=== PATIENT | male | born 1945 | race Caucasian/White ===

== ENCOUNTER 2017-09-03 09:30 | Inpatient (IN) | payer MEDICARE ==
[~2017-09-03] VITALS: Ht 180.3 cm; Wt 100.8 kg
[~2017-09-03 09:30] MED LIST: ASPIR 8181 MG PO; AZITHROMYCIN250 MG PO; CARVEDILOL3.125 MG PO; COMBIVENT RESPIM4 GM IH; DOXYCYCLINE HY100 MG PO; ENALAPRIL MALEA20 MG PO; IMODIUM2 MG PO; LASIX40 MG PO; LEVAQUIN500 MG PO; LOSARTAN POTASS25 MG PO; METOPROLOL TART25 MG PO; MUCUS RELIEF D1 EACH PEG; MUCUS RELIEF D1 EACH PO; OMEGA-31000 MG PO; OXYBUTYNIN CHLOR5 MG PO; PLAVIX75 MG PO; POTASSIUM CHLO10 ME1 PO; RAMIPRIL5 MG PO; SPIRONOLACTONE25 MG PO; TAMIFLU75 MG PO; VASOTEC10 M1 PO; VASOTEC10 MG PO; VASOTEC5 MG PO; ZOFRAN ODT4 MG PO
[2017-09-03 10:26] LABS: BASOPHILS # (AUTO) 0.1 (0.0-0.1); BASOPHILS % 0.7 % (0.0-1.0); EOSINOPHILS # (AUTO) 0.3 (0.0-0.4); EOSINOPHILS % 3.3 % (0.0-6.0); HEMOGLOBIN 15.4 g/dL (14.0-18.0); LYMPHOCYTES # (AUTO) 1.4 (1.0-3.2); LYMPHOCYTES % 16.3 % (18.0-39.1); MEAN CORPUSCULAR HEMOGLOBIN 27.8 pg (28-32); MEAN CORPUSCULAR HGB CONC 31.4 g/dL (31-35); MEAN CORPUSCULAR VOLUME 88.4 fL (81-99); MONOCYTES # (AUTO) 1.1 (0.2-0.8); NEUTROPHILS # (AUTO) 5.5 (2.1-6.9); NEUTROPHILS % 66.3 % (38.7-80.0); PLATELET COUNT 248 x10e3/uL (140-360); RED BLOOD COUNT 5.54 x10e6/uL (4.3-5.7); RED CELL DISTRIBUTION WIDTH 15.5 % (11.7-14.4)
[2017-09-03 10:29] LABS: INR 1.1; PARTIAL THROMBOPLASTIN TIME 28.9 seconds (23.8-35.5); PROTHROMBIN TIME 14.8 seconds (11.9-14.5)
[2017-09-03] MEDS ORDERED: FUROSEMIDE INJ 10 MG/ML 4 ML VIAL IV ONE (10:30)
--- NOTE | 2017-09-03 11:00 | Diagnostic Imaging Report ---
PROCEDURE:CHEST SINGLE (PORTABLE) TECHNIQUE:Portable AP chest INDICATION:Fluid on legs. COMPARISON:None. FINDINGS: Bilateral interstitial and alveolar opacity with cardiomegaly and postoperative sequela of sternotomy. Prominent central vasculature. No pleural effusions. Intact skeleton. CONCLUSION: Cardiomegaly with pulmonary edema consistent with volume overload. Dictated by: Man Mir M.D. on 09/03/2017 at 11:08 Electronically approved by: Man Mir M.D. on 09/03/2017 at 11:08
[2017-09-03] MEDS ORDERED: ULTRAM50 MG PO (11:03)
[2017-09-03] MEDS ORDERED: NORCO 5-325 TA1 EACH PO (11:03)
[2017-09-03 11:28] LABS: ALBUMIN 3.5 g/dL (3.5-5.0); ALBUMIN/GLOBULIN RATIO 1.1 (0.8-2.0); ANION GAP 14.8 mmol/L (8-16); CALCIUM 9.5 mg/dL (8.4-10.2); CREATININE, SERUM 1.29 mg/dL (0.72-1.25); POTASSIUM 3.8 mmol/L (3.5-5.1)
[2017-09-03 16:47] VITALS: BP 124/82
[2017-09-03 16:48] VITALS: BP 124/82
[2017-09-03 16:54] VITALS: BP 124/82
[2017-09-03] MEDS ORDERED: FUROSEMIDE INJ 10 MG/ML 4 ML VIAL IV SCH (17:00)
[2017-09-03] MEDS ORDERED: HYDROCODONE/APAP 5MG-325MG TAB PO PRN (17:45)
[2017-09-03 20:00] VITALS: BP 124/88
[2017-09-03 20:15] VITALS: BP 124/88
[2017-09-03] MEDS: RAMIPRIL 5 MG CAP PO SCH (21:53)
[2017-09-03] MEDS: FUROSEMIDE INJ 10 MG/ML 4 ML VIAL IV SCH (21:53)
[2017-09-03] MEDS: HYDROCODONE/APAP 5MG-325MG TAB PO PRN (23:55)
[2017-09-03] MEDS: CARVEDILOL 3.125 MG TAB PO SCH (23:59)
[2017-09-03] MEDS: METOPROLOL TARTRATE 25 MG TAB PO SCH (23:59)
[2017-09-04] VITALS (8 sets, daily range): BP systolic 96–162; BP diastolic 58–104
[2017-09-04] MEDS: TRAMADOL HCL 50 MG TAB PO PRN (06:01)
[2017-09-04 08:10] LABS: BASOPHILS # (AUTO) 0.1 (0.0-0.1); BASOPHILS % 0.9 % (0.0-1.0); EOSINOPHILS # (AUTO) 0.4 (0.0-0.4); EOSINOPHILS % 3.5 % (0.0-6.0); HEMOGLOBIN 15.2 g/dL (14.0-18.0); LYMPHOCYTES # (AUTO) 1.5 (1.0-3.2); LYMPHOCYTES % 14.8 % (18.0-39.1); MEAN CORPUSCULAR HEMOGLOBIN 28.1 pg (28-32); MEAN CORPUSCULAR HGB CONC 32.3 g/dL (31-35); MONOCYTES # (AUTO) 1.3 (0.2-0.8); MONOCYTES % 12.8 % (4.4-11.3); NEUTROPHILS # (AUTO) 6.9 (2.1-6.9); NEUTROPHILS % 67.7 % (38.7-80.0); PLATELET COUNT 244 x10e3/uL (140-360); RED CELL DISTRIBUTION WIDTH 15.7 % (11.7-14.4)
[2017-09-04 08:27] LABS: ALBUMIN 3.3 g/dL (3.5-5.0); ALBUMIN/GLOBULIN RATIO 1.1 (0.8-2.0); ANION GAP 13.2 mmol/L (8-16); CALCIUM 8.8 mg/dL (8.4-10.2); CREATININE, SERUM 1.37 mg/dL (0.72-1.25); POTASSIUM 4.2 mmol/L (3.5-5.1)
[2017-09-04] MEDS ORDERED: ENALAPRIL MALEATE 10 MG TAB PO SCH (09:00)
[2017-09-04] MEDS: LOSARTAN POTASSIUM 25 MG TAB PO SCH (09:00)
[2017-09-04] MEDS: SPIRONOLACTONE 25 MG TAB PO SCH (09:00)
[2017-09-04] MEDS ORDERED: SPIRONOLACTONE 25 MG TAB PO SCH (09:00)
[2017-09-04] MEDS ORDERED: LOSARTAN POTASSIUM 25 MG TAB PO SCH (09:00)
[2017-09-04] MEDS ORDERED: FUROSEMIDE 40 MG TAB PO SCH (09:00)
[2017-09-04] MEDS ORDERED: CARVEDILOL 3.125 MG TAB PO SCH (09:00)
[2017-09-04] MEDS ORDERED: METOPROLOL TARTRATE 25 MG TAB PO SCH (09:00)
[2017-09-04] MEDS: ENALAPRIL MALEATE 10 MG TAB PO SCH (09:00)
[2017-09-04] MEDS: ASPIRIN 81 MG CHEW TAB PO SCH (09:16)
[2017-09-04] MEDS: FUROSEMIDE INJ 10 MG/ML 4 ML VIAL IV SCH ×3 (09:16→22:00)
[2017-09-04] MEDS: CARVEDILOL 3.125 MG TAB PO SCH ×2 (09:16→17:06)
[2017-09-04] MEDS: OXYBUTYNIN CHLORIDE 5 MG TAB PO SCH ×2 (09:16→17:06)
--- NOTE | 2017-09-04 09:16 | Consultation ---
DATE OF CONSULTATION: September 03, 2017 CARDIOLOGY CONSULTATION REASON FOR CONSULTATION: CHF. CONSULTING PHYSICIAN: Dr. Vines HPI: This is a 72-year-old noncompliant male that presented with shortness of breath. According to him, for the last 3 months he started having worsening of shortness of breath, orthopnea, difficulty breathing, and bilateral lower extremity edema that he decided to come into the emergency room for evaluation. He was recently admitted and discharged home on August 06, 2017, with the same symptoms when he quit taking his diuretics because he was not feeling good. He recently had open heart surgery at [facility] in February 2017. He denies any chest pain, any palpitation, any dizziness, or diaphoresis. His chest x-ray showed cardiomegaly with pulmonary edema consistent with volume overload. BNP 2832. EKG showed normal sinus rhythm with nonspecific S/T abnormalities. PAST MEDICAL HISTORY: Hypertension, COPD, CHF, cardiomegaly, and CAD. PAST SURGICAL HISTORY: Open heart surgery, hernia repair, and nose surgery. FAMILY HISTORY: Positive for CAD. SOCIAL HISTORY: He quit smoking and lives at home with the . MEDICATIONS: See med list. ALLERGIES: HE IS ALLERGIC TO AZITHROMYCIN. REVIEW OF SYSTEMS: Negative except those mentioned above. PHYSICAL EXAMINATION VITAL SIGNS: Temperature 96.1, heart rate 63, blood pressure 110/85, respirations 18, oxygen saturation 95% on room air. GENERAL: He is awake, alert and oriented times 3. HEENT: Mucous membrane moist. NECK: Supple. LUNGS: Bilateral with decreased breath sounds. CARDIOVASCULAR: S1 and S2 present. ABDOMEN: Soft. NEUROLOGICAL: Intact. EXTREMITIES: With positive edema. LABS: Sodium 143, potassium 3.8, chloride 106, CO2 26, BUN 11, creatinine 1.29, glucose 120. White blood cells 10.1, hemoglobin 15.2, hematocrit 47, and platelets 244,000. PT 14.8, PTT 28.9 and INR 1.1. IMPRESSION 1. Systolic congestive heart failure exacerbation. 2. Coronary artery disease with coronary artery bypass graft. 3. Hypertension. 4. Renal insufficiency. 5. Chronic obstructive pulmonary disease. ASSESSMENT AND PLAN: He had an echo done in July with left ventricular systolic dysfunction that was severely impaired. Ejection fraction was 20% to 25%. Will put him on 1.5. L fluid restriction, low salt diet, daily weights. Continue diuretics, beta basilio and ALFREDA. Further cardiac workup pending clinical course. Thank you for this consultation. DICTATED BY LOREN ESCALONA NP Job#: [id number] RI
[2017-09-04] MEDS: POTASSIUM CHLORIDE 10 MEQ TABCR PO SCH (09:17)
[2017-09-04] MEDS: CLOPIDOGREL BISULFATE 75 MG TAB PO SCH (09:17)
[2017-09-04] MEDS: METOPROLOL TARTRATE 25 MG TAB PO SCH ×2 (09:17→17:06)
[2017-09-04] MEDS: OMEGA 3 POLYUNSAT FATTY ACIDS 1000 MG SOFTGEL PO SCH ×2 (09:17→17:06)
[2017-09-04] MEDS: CEFAZOLIN SOD 1 GM in WATER STERILE 10ML VIAL 10 ML IV SCH ×2 (12:50→21:19)
[2017-09-04] MEDS: HYDROCODONE/APAP 5MG-325MG TAB PO PRN (15:04)
[2017-09-04] MEDS: RAMIPRIL 5 MG CAP PO SCH (21:00)
[2017-09-05] VITALS (7 sets, daily range): BP systolic 93–125; BP diastolic 62–86
[2017-09-05] MEDS: FUROSEMIDE INJ 10 MG/ML 4 ML VIAL IV SCH ×3 (05:27→21:21)
[2017-09-05] MEDS: CEFAZOLIN SOD 1 GM in WATER STERILE 10ML VIAL 10 ML IV SCH ×3 (05:27→21:37)
--- NOTE | 2017-09-05 06:35 | Diagnostic Imaging Report ---
CHEST 2 VIEWS, Technique: CHEST 2 VIEWS Comparison: 07/12/2017 Clinical history: Follow-up CHF DISCUSSION: Heart/mediastinum: Stable enlarged status post sternotomy. Lungs: Central vascular congestion without overt edema. Pleural spaces: Stable blunting of the costophrenic angles, likely trace effusions. IMPRESSION: Cardiomegaly with central vascular congestion and trace effusions. Signed by: Dr Carolina Starks MD on 09/05/2017 6:32 AM
[2017-09-05] MEDS: SPIRONOLACTONE 25 MG TAB PO SCH (08:46)
[2017-09-05] MEDS: OXYBUTYNIN CHLORIDE 5 MG TAB PO SCH ×2 (08:46→17:04)
[2017-09-05] MEDS: ASPIRIN 81 MG CHEW TAB PO SCH (08:46)
[2017-09-05] MEDS: OMEGA 3 POLYUNSAT FATTY ACIDS 1000 MG SOFTGEL PO SCH ×2 (08:47→17:04)
[2017-09-05] MEDS: HYDROCODONE/APAP 5MG-325MG TAB PO PRN (08:47)
[2017-09-05] MEDS: CLOPIDOGREL BISULFATE 75 MG TAB PO SCH (08:47)
[2017-09-05] MEDS: LOSARTAN POTASSIUM 25 MG TAB PO SCH (09:05)
[2017-09-05] MEDS: CARVEDILOL 3.125 MG TAB PO SCH ×2 (09:05→17:04)
[2017-09-05] MEDS: ENALAPRIL MALEATE 10 MG TAB PO SCH (09:06)
[2017-09-05] MEDS: METOPROLOL TARTRATE 25 MG TAB PO SCH ×2 (09:06→17:04)
[2017-09-05] MEDS: POTASSIUM CHLORIDE 10 MEQ TABCR PO SCH (09:06)
[2017-09-05 09:11] LABS: ANION GAP 12.6 mmol/L (8-16); CALCIUM 9.3 mg/dL (8.4-10.2); CREATININE, SERUM 1.19 mg/dL (0.72-1.25); POTASSIUM 3.6 mmol/L (3.5-5.1)
[2017-09-05 09:22] LABS: BILIRUBIN,URINE NEGATIVE (NEGATIVE); CLARITY,URINE CLEAR (CLEAR); COLOR,URINE YELLOW (YELLOW); KETONES,URINE NEGATIVE (NEGATIVE); LEUKOCYTE ESTERASE ,URINE 2+ (NEGATIVE); NITRITE,URINE NEGATIVE (NEGATIVE); PROTEIN,URINE DIPSTICK NEGATIVE (NEGATIVE); URINE UROBILINOGEN 0.2 mg/dL (0.2 - 1)
[2017-09-05 09:40] LABS: RBC,URINE 21-50 /HPF (0-5); WBC,URINE (MAN) 0-5 /HPF (0-5)
--- NOTE | 2017-09-05 09:55 | History and Physical ---
PCP: Dr. Adán Amador ROUTE SALES MANAGER: Dr. Dmitry Silverman CHIEF COMPLAINT: Acute exacerbation of systolic dysfunction congestive heart failure and lower extremity edema associated with infection of the left and right leg. HISTORY: This is a 72-year-old male with cardiomyopathy with ejection fraction of approximately 20% to 25% on recent echocardiogram with systolic dysfunction congestive heart failure came in with exacerbation. More importantly, it was noticed now that the patient has bilateral lower extremity cellulitis of the leg worse on the left compared to the right. He has significant lower extremity edema. The patient is having fluid seeping out of those wounds. The patient is otherwise stable. He does not seem to understand his condition. The patient seems to be confused. PAST MEDICAL HISTORY: Possible early to moderate dementia, hypertension, history COPD, systolic dysfunction chest heart failure, cardiomyopathy with EF of 20%, coronary disease with previous bypass surgery. PAST SURGICAL HISTORY: CABG, inguinal hernia repair. Nose surgery. SOCIAL HISTORY: The patient lives with his . He does not smoke or use alcohol. ALLERGIES: AZITHROMYCIN. HOME MEDICATIONS: List will be available for review. REVIEW OF SYSTEMS: Difficult to assess, but the patient seemed to be comfortable. Lower extremities bilaterally with edema. Left lower extremity redness above the ankle area. Shortness of breath and coughing. PHYSICAL EXAMINATION VITAL SIGNS: Temperature is 98, blood pressure 149/98, pulse rate 82, respirations 18. GENERAL: The patient is not in acute distress. He is awake. HEENT: Normocephalic, atraumatic and anicteric. NECK: Supple grossly. PULMONARY: Bilateral wheezing and rales at the base. CARDIOVASCULAR: S1 and S2. Regular rate and rhythm. ABDOMEN: Soft. EXTREMITIES: Three plus edema with cellulitis above the ankle area on both lower extremities, worse on the left compared to the right. NEUROLOGIC: He is moving all extremities. Possible dementia. LABORATORY: Reviewed. Sodium is 141, potassium 4.2, chloride 102, bicarb 30, BUN 13, creatinine 1.4, glucose 119. WBC is 10, hemoglobin 15.2, hematocrit 47, and platelets 244,000. IMPRESSION 1. Sakrc-vs-obevtrw systolic dysfunction congestive heart failure exacerbation. 2. Bilateral lower extremity cellulitis with edematous legs. 3. Compliance issue. 4. Dementia. 5. Multiple baseline problems. PLAN: Suarez catheter has already been placed. IV Lasix. Antibiotics. Monitor the patient closely. This patient will need more assistance at home, possible home health, but most likely will be better with palliative Hospice care since his EF is approximately 20%, and he will get more attention, medications, monitoring, as well as other assistance that home health will not be able to provide. Job#: [id number] RI
[2017-09-05] MEDS: TRAMADOL HCL 50 MG TAB PO PRN (10:52)
[2017-09-05] MEDS ORDERED: DOCUSATE SODIUM 100 MG CAP PO PRN (11:15)
[2017-09-05] MEDS ORDERED: LACTULOSE SYRUP 20 GM/30 ML UDC PO PRN (11:15)
[2017-09-05] MEDS: SENNOSIDES 8.6 MG TAB PO SCH (17:04)
[2017-09-05] MEDS: RAMIPRIL 5 MG CAP PO SCH (21:00)
[2017-09-06] VITALS (10 sets, daily range): BP systolic 96–128; BP diastolic 58–80
[2017-09-06] MEDS: CEFAZOLIN SOD 1 GM in WATER STERILE 10ML VIAL 10 ML IV SCH ×3 (05:44→22:34)
[2017-09-06] MEDS: FUROSEMIDE INJ 10 MG/ML 4 ML VIAL IV SCH ×3 (05:44→22:34)
[2017-09-06] MEDS: OMEGA 3 POLYUNSAT FATTY ACIDS 1000 MG SOFTGEL PO SCH ×2 (09:15→17:52)
[2017-09-06] MEDS: ASPIRIN 81 MG CHEW TAB PO SCH (10:15)
[2017-09-06] MEDS: LOSARTAN POTASSIUM 25 MG TAB PO SCH (10:15)
[2017-09-06] MEDS: OXYBUTYNIN CHLORIDE 5 MG TAB PO SCH ×2 (10:15→17:51)
[2017-09-06] MEDS: ENALAPRIL MALEATE 10 MG TAB PO SCH (10:15)
[2017-09-06] MEDS: SENNOSIDES 8.6 MG TAB PO SCH ×2 (10:15→17:52)
[2017-09-06] MEDS: CLOPIDOGREL BISULFATE 75 MG TAB PO SCH (10:15)
[2017-09-06] MEDS: METOPROLOL TARTRATE 25 MG TAB PO SCH ×2 (10:15→17:53)
[2017-09-06] MEDS: SPIRONOLACTONE 25 MG TAB PO SCH (10:15)
[2017-09-06] MEDS: CARVEDILOL 3.125 MG TAB PO SCH ×2 (10:15→17:52)
[2017-09-06] MEDS: POTASSIUM CHLORIDE 10 MEQ TABCR PO SCH (10:15)
[2017-09-07] VITALS: BP 116/72
[2017-09-07] MEDS: HYDROCODONE/APAP 5MG-325MG TAB PO PRN (02:29)
[2017-09-07] MEDS: CEFAZOLIN SOD 1 GM in WATER STERILE 10ML VIAL 10 ML IV SCH ×3 (06:11→21:00)
[2017-09-07] MEDS: FUROSEMIDE INJ 10 MG/ML 4 ML VIAL IV SCH ×3 (06:12→22:00)
[2017-09-07 06:43] LABS: BASOPHILS # (AUTO) 0.1 (0.0-0.1); BASOPHILS % 0.8 % (0.0-1.0); EOSINOPHILS % 10.1 % (0.0-6.0); HEMATOCRIT 42.3 % (38.2-49.6); HEMOGLOBIN 13.6 g/dL (14.0-18.0); LYMPHOCYTES # (AUTO) 1.6 (1.0-3.2); LYMPHOCYTES % 16.3 % (18.0-39.1); MEAN CORPUSCULAR HEMOGLOBIN 27.6 pg (28-32); MEAN CORPUSCULAR HGB CONC 32.2 g/dL (31-35); MEAN CORPUSCULAR VOLUME 85.8 fL (81-99); MONOCYTES # (AUTO) 1.3 (0.2-0.8); MONOCYTES % 12.7 % (4.4-11.3); NEUTROPHILS % 59.7 % (38.7-80.0); PLATELET COUNT 270 x10e3/uL (140-360); RED BLOOD COUNT 4.93 x10e6/uL (4.3-5.7); RED CELL DISTRIBUTION WIDTH 15.4 % (11.7-14.4)
[2017-09-07 07:17] LABS: ANION GAP 13.7 mmol/L (8-16); CREATININE, SERUM 1.32 mg/dL (0.72-1.25); POTASSIUM 3.7 mmol/L (3.5-5.1)
[2017-09-07 08:45] VITALS: BP 116/73
[2017-09-07] MEDS: OXYBUTYNIN CHLORIDE 5 MG TAB PO SCH ×2 (09:18→16:59)
[2017-09-07] MEDS: OMEGA 3 POLYUNSAT FATTY ACIDS 1000 MG SOFTGEL PO SCH ×2 (09:18→16:59)
[2017-09-07] MEDS: CLOPIDOGREL BISULFATE 75 MG TAB PO SCH (09:18)
[2017-09-07] MEDS: SENNOSIDES 8.6 MG TAB PO SCH ×2 (09:18→16:59)
[2017-09-07] MEDS: SPIRONOLACTONE 25 MG TAB PO SCH (09:18)
[2017-09-07] MEDS: ASPIRIN 81 MG CHEW TAB PO SCH (09:18)
[2017-09-07] MEDS: CARVEDILOL 3.125 MG TAB PO SCH ×2 (09:19→16:59)
[2017-09-07] MEDS: LOSARTAN POTASSIUM 25 MG TAB PO SCH (09:19)
[2017-09-07] MEDS: ENALAPRIL MALEATE 10 MG TAB PO SCH (09:19)
[2017-09-07] MEDS: METOPROLOL TARTRATE 25 MG TAB PO SCH ×2 (09:19→16:59)
[2017-09-07] MEDS: POTASSIUM CHLORIDE 10 MEQ TABCR PO SCH (09:19)
[2017-09-07 11:02] VITALS: BP 116/75
[2017-09-07 16:10] VITALS: BP 120/69
[2017-09-07 20:00] VITALS: BP 100/67
[2017-09-07] MEDS: RAMIPRIL 1.25 MG PO SCH (21:00)
[2017-09-07] MEDS ORDERED: CEFAZOLIN SOD 1 GM VIAL ONE (21:38)
[2017-09-08] VITALS: BP 124/87
[2017-09-08 04:00] VITALS: BP 137/96
[2017-09-08] MEDS: CEFAZOLIN SOD 1 GM in WATER STERILE 10ML VIAL 10 ML IV SCH ×3 (05:00→20:39)
[2017-09-08] MEDS ORDERED: CEFAZOLIN SOD 1 GM VIAL ONE ×3 (05:31→20:11)
[2017-09-08] MEDS: FUROSEMIDE INJ 10 MG/ML 4 ML VIAL IV SCH ×3 (05:40→22:16)
[2017-09-08] MEDS: POTASSIUM CHLORIDE 10 MEQ TABCR PO SCH (09:37)
[2017-09-08] MEDS: LOSARTAN POTASSIUM 25 MG TAB PO SCH (09:37)
[2017-09-08] MEDS: ASPIRIN 81 MG CHEW TAB PO SCH (09:37)
[2017-09-08] MEDS: CARVEDILOL 3.125 MG TAB PO SCH ×2 (09:37→16:30)
[2017-09-08] MEDS: OMEGA 3 POLYUNSAT FATTY ACIDS 1000 MG SOFTGEL PO SCH ×2 (09:37→16:31)
[2017-09-08] MEDS: OXYBUTYNIN CHLORIDE 5 MG TAB PO SCH ×2 (09:37→16:30)
[2017-09-08] MEDS: SPIRONOLACTONE 25 MG TAB PO SCH (09:37)
[2017-09-08] MEDS: CLOPIDOGREL BISULFATE 75 MG TAB PO SCH (09:37)
[2017-09-08] MEDS: METOPROLOL TARTRATE 25 MG TAB PO SCH ×2 (09:37→16:31)
[2017-09-08] MEDS: SENNOSIDES 8.6 MG TAB PO SCH ×2 (09:37→16:31)
[2017-09-08] MEDS: ENALAPRIL MALEATE 10 MG TAB PO SCH (09:38)
[2017-09-08 12:17] VITALS: BP 118/77
[2017-09-08 16:22] VITALS: BP 117/70
[2017-09-08 20:08] VITALS: BP 116/69
[2017-09-08] MEDS: RAMIPRIL 1.25 MG PO SCH (20:41)
[2017-09-09] VITALS (7 sets, daily range): BP systolic 99–142; BP diastolic 68–92
[2017-09-09] MEDS ORDERED: CEFAZOLIN SOD 1 GM VIAL ONE (05:44)
[2017-09-09] MEDS: CEFAZOLIN SOD 1 GM in WATER STERILE 10ML VIAL 10 ML IV SCH (05:48)
[2017-09-09] MEDS: FUROSEMIDE INJ 10 MG/ML 4 ML VIAL IV SCH ×2 (05:50→07:22)
[2017-09-09] MEDS: CARVEDILOL 3.125 MG TAB PO SCH ×2 (09:00→17:00)
[2017-09-09] MEDS: ASPIRIN 81 MG CHEW TAB PO SCH (09:55)
[2017-09-09] MEDS: POTASSIUM CHLORIDE 10 MEQ TABCR PO SCH (09:55)
[2017-09-09] MEDS: FUROSEMIDE 40 MG TAB PO SCH ×2 (09:55→13:00)
[2017-09-09] MEDS: SENNOSIDES 8.6 MG TAB PO SCH ×2 (09:55→17:00)
[2017-09-09] MEDS: ENALAPRIL MALEATE 10 MG TAB PO SCH (09:56)
[2017-09-09] MEDS: SPIRONOLACTONE 25 MG TAB PO SCH (09:56)
[2017-09-09] MEDS: METOPROLOL TARTRATE 25 MG TAB PO SCH (09:56)
[2017-09-09] MEDS: OMEGA 3 POLYUNSAT FATTY ACIDS 1000 MG SOFTGEL PO SCH ×2 (09:56→17:39)
[2017-09-09] MEDS: LOSARTAN POTASSIUM 25 MG TAB PO SCH (09:57)
[2017-09-09] MEDS: CLOPIDOGREL BISULFATE 75 MG TAB PO SCH (09:57)
[2017-09-09 10:35] LABS: BASOPHILS # (AUTO) 0.1 (0.0-0.1); BASOPHILS % 0.7 % (0.0-1.0); EOSINOPHILS # (AUTO) 0.8 (0.0-0.4); EOSINOPHILS % 9.1 % (0.0-6.0); HEMATOCRIT 44.7 % (38.2-49.6); HEMOGLOBIN 14.3 g/dL (14.0-18.0); LYMPHOCYTES # (AUTO) 1.1 (1.0-3.2); LYMPHOCYTES % 12.7 % (18.0-39.1); MEAN CORPUSCULAR HEMOGLOBIN 27.6 pg (28-32); MEAN CORPUSCULAR VOLUME 86.3 fL (81-99); MONOCYTES # (AUTO) 0.9 (0.2-0.8); MONOCYTES % 9.8 % (4.4-11.3); NEUTROPHILS # (AUTO) 6.1 (2.1-6.9); NEUTROPHILS % 67.4 % (38.7-80.0); PLATELET COUNT 260 x10e3/uL (140-360); RED BLOOD COUNT 5.18 x10e6/uL (4.3-5.7); RED CELL DISTRIBUTION WIDTH 15.4 % (11.7-14.4)
[2017-09-09 11:04] LABS: ANION GAP 15.8 mmol/L (8-16); CALCIUM 9.1 mg/dL (8.4-10.2); CREATININE, SERUM 1.21 mg/dL (0.72-1.25); POTASSIUM 3.8 mmol/L (3.5-5.1)
[2017-09-09] MEDS: RAMIPRIL 1.25 MG PO SCH (21:00)
[2017-09-10] VITALS (7 sets, daily range): BP systolic 108–153; BP diastolic 62–83
[2017-09-10] MEDS: HYDROCODONE/APAP 5MG-325MG TAB PO PRN (00:03)
[2017-09-10 07:50] LABS: BASOPHILS # (AUTO) 0.1 (0.0-0.1); BASOPHILS % 0.7 % (0.0-1.0); EOSINOPHILS # (AUTO) 1.1 (0.0-0.4); EOSINOPHILS % 12.1 % (0.0-6.0); HEMATOCRIT 44.5 % (38.2-49.6); HEMOGLOBIN 14.5 g/dL (14.0-18.0); LYMPHOCYTES # (AUTO) 1.5 (1.0-3.2); LYMPHOCYTES % 16.1 % (18.0-39.1); MEAN CORPUSCULAR HGB CONC 32.6 g/dL (31-35); MEAN CORPUSCULAR VOLUME 86.1 fL (81-99); MONOCYTES # (AUTO) 1.3 (0.2-0.8); MONOCYTES % 14.1 % (4.4-11.3); NEUTROPHILS # (AUTO) 5.3 (2.1-6.9); NEUTROPHILS % 56.7 % (38.7-80.0); PLATELET COUNT 278 x10e3/uL (140-360); RED BLOOD COUNT 5.17 x10e6/uL (4.3-5.7); RED CELL DISTRIBUTION WIDTH 15.5 % (11.7-14.4)
[2017-09-10] MEDS: FUROSEMIDE 40 MG TAB PO SCH ×2 (08:00→12:00)
[2017-09-10 08:05] LABS: ANION GAP 12.9 mmol/L (8-16); BLOOD UREA NITROGEN 21 mg/dL (7-26); BUN/CREATININE RATIO 21 (6-25); CALCIUM 9.3 mg/dL (8.4-10.2); CARBON DIOXIDE 28 mmol/L (22-29); CHLORIDE 103 mmol/L (98-107); CREATININE, SERUM 1.02 mg/dL (0.72-1.25); EST GLOMERULAR FILTRATION RATE > 60 ML/MIN (60-); GLUCOSE 101 mg/dL (74-118); POTASSIUM 3.9 mmol/L (3.5-5.1); SODIUM 140 mmol/L (136-145)
[2017-09-10] MEDS: ASPIRIN 81 MG CHEW TAB PO SCH (09:23)
[2017-09-10] MEDS: SPIRONOLACTONE 25 MG TAB PO SCH (09:23)
[2017-09-10] MEDS: ENALAPRIL MALEATE 10 MG TAB PO SCH (09:24)
[2017-09-10] MEDS: CARVEDILOL 3.125 MG TAB PO SCH ×2 (09:24→17:43)
[2017-09-10] MEDS: SENNOSIDES 8.6 MG TAB PO SCH ×2 (09:24→17:43)
[2017-09-10] MEDS: LOSARTAN POTASSIUM 25 MG TAB PO SCH (09:24)
[2017-09-10] MEDS: POTASSIUM CHLORIDE 10 MEQ TABCR PO SCH (09:24)
[2017-09-10] MEDS: CLOPIDOGREL BISULFATE 75 MG TAB PO SCH (09:24)
[2017-09-10] MEDS: OMEGA 3 POLYUNSAT FATTY ACIDS 1000 MG SOFTGEL PO SCH ×2 (09:24→17:43)
[2017-09-10] MEDS: TRAMADOL HCL 50 MG TAB PO PRN (18:15)
[2017-09-10] MEDS: RAMIPRIL 1.25 MG PO SCH (21:00)
[2017-09-11] VITALS: BP 104/56
[2017-09-11 04:00] VITALS: BP 108/62
[2017-09-11 08:00] VITALS: BP 120/75
[2017-09-11 08:12] LABS: BASOPHILS # (AUTO) 0.1 (0.0-0.1); BASOPHILS % 0.9 % (0.0-1.0); EOSINOPHILS # (AUTO) 1.2 (0.0-0.4); EOSINOPHILS % 11.5 % (0.0-6.0); HEMATOCRIT 46.1 % (38.2-49.6); HEMOGLOBIN 14.5 g/dL (14.0-18.0); LYMPHOCYTES # (AUTO) 1.6 (1.0-3.2); MEAN CORPUSCULAR HEMOGLOBIN 27.4 pg (28-32); MEAN CORPUSCULAR HGB CONC 31.5 g/dL (31-35); MEAN CORPUSCULAR VOLUME 87.1 fL (81-99); MONOCYTES # (AUTO) 1.6 (0.2-0.8); MONOCYTES % 14.7 % (4.4-11.3); NEUTROPHILS # (AUTO) 6.1 (2.1-6.9); NEUTROPHILS % 57.5 % (38.7-80.0); PLATELET COUNT 290 x10e3/uL (140-360); RED BLOOD COUNT 5.29 x10e6/uL (4.3-5.7); RED CELL DISTRIBUTION WIDTH 15.5 % (11.7-14.4)
[2017-09-11 08:37] LABS: ANION GAP 14.6 mmol/L (8-16); BLOOD UREA NITROGEN 18 mg/dL (7-26); BUN/CREATININE RATIO 19 (6-25); CALCIUM 9.5 mg/dL (8.4-10.2); CARBON DIOXIDE 28 mmol/L (22-29); CHLORIDE 103 mmol/L (98-107); CREATININE, SERUM 0.95 mg/dL (0.72-1.25); EST GLOMERULAR FILTRATION RATE > 60 ML/MIN (60-); GLUCOSE 101 mg/dL (74-118); POTASSIUM 4.6 mmol/L (3.5-5.1); SODIUM 141 mmol/L (136-145)
[2017-09-11] MEDS: SPIRONOLACTONE 25 MG TAB PO SCH (09:42)
[2017-09-11] MEDS: ASPIRIN 81 MG CHEW TAB PO SCH (09:42)
[2017-09-11] MEDS: FUROSEMIDE 40 MG TAB PO SCH ×2 (09:42→12:54)
[2017-09-11] MEDS: OMEGA 3 POLYUNSAT FATTY ACIDS 1000 MG SOFTGEL PO SCH (09:43)
[2017-09-11] MEDS: ENALAPRIL MALEATE 10 MG TAB PO SCH (09:43)
[2017-09-11] MEDS: POTASSIUM CHLORIDE 10 MEQ TABCR PO SCH (09:43)
[2017-09-11] MEDS: LOSARTAN POTASSIUM 25 MG TAB PO SCH (09:43)
[2017-09-11] MEDS: SENNOSIDES 8.6 MG TAB PO SCH (09:43)
[2017-09-11] MEDS: CARVEDILOL 3.125 MG TAB PO SCH (09:43)
[2017-09-11] MEDS: CLOPIDOGREL BISULFATE 75 MG TAB PO SCH (09:43)
[2017-09-11 11:31] LABS: BAND NEUTROPHILS % (MANUAL) 1 %; EOSINOPHILS % (MANUAL) 10 % (0-7); LYMPHOCYTES % (MANUAL) 7 % (19-48); MONOCYTES % (MANUAL) 12 % (3.4-9.0); NEUTROPHILS % (MANUAL) 70 % (40-74)
[2017-09-11 11:32] LABS: PLATELET ESTIMATE ADEQUATE; PLATELET MORPHOLOGY COMMENT NORMAL; RBC MORPHOLOGY COMMENT NORMAL
[2017-09-11 12:00] VITALS: BP 117/78
[2017-09-11] MEDS ORDERED: SENOKOT8.6 MG PO (13:51)
[2017-09-11] MEDS ORDERED: LACTULOSE20 GM/30 M PO (13:51)
[2017-09-11] MEDS ORDERED: COLACE100 M1 PO (13:51)
--- NOTE | 2017-09-12 10:11 | Discharge Summary ---
PRINCIPAL DIAGNOSES 1. Acute exacerbation of systolic congestive heart failure. 2. Severe systolic congestive heart failure with ejection fraction 20%. The patient refuses AICD placement with the understanding that he could develop sudden . 3. Bilateral leg cellulitis. 4. Coronary artery disease. 5. Valvular dysfunction. 6. Constipation. 7. Acute kidney injury, which is resolving. SECONDARY DIAGNOSIS: Systolic congestive heart failure. CHIEF COMPLAINT: Leg swelling. HISTORY OF PRESENT ILLNESS: with leg swelling, . For further details, please refer to H\T\P. HOSPITAL COURSE: The patient was found to have acute exacerbation of systolic CHF. He was diuresed. He had acute kidney injury which resolved. He had bilateral leg cellulitis and was treated. Coronary artery disease treated with medication regimen. He has a history of coronary artery bypass grafting. For ambulatory dysfunction received physical therapy and will receive physical therapy at home. The patient was considered for hospice care but they refused and also considered for alf facility but they refused. Therefore, he will go home with home health. No AICD. The patient refused the AICD, even with the understanding that he could develop sudden and not make it to the hospital due to cardiac arrhythmia. The patient is currently appropriate for discharge. DISCHARGE MEDICATIONS: Per electronic medical records. FOLLOWUP CARE: Follow up with primary care physician in one week and inspector agricultural commodities in two weeks. PROGNOSIS: Poor. VALENTINE CARABALLO MD Job#: [id number]
== END 2017-09-11 15:39 | disposition home or self-care (01) | DRG 292 ==
LOC: ER 09:36 → ERHOLD 12:21 → ER 15:27 → MED/SURG 15:28 → MED/SURG3 09-07 13:11
PROVIDERS: ADMIT Internal Medicine; ATTEND Internal Medicine
DX: I11.0 Hypertensive heart disease with heart failure (principal); L03.116 Cellulitis of left lower limb; N17.9 Acute kidney failure, unspecified; L03.115 Cellulitis of right lower limb; F03.90 Unspecified dementia, unspecified severity, without behavioral disturbance, psychotic disturbance, mood disturbance, and anxiety; J44.9 Chronic obstructive pulmonary disease, unspecified; I50.23 Acute on chronic systolic (congestive) heart failure; I25.10 Atherosclerotic heart disease of native coronary artery without angina pectoris; Z95.1 Presence of aortocoronary bypass graft; K59.00 Constipation, unspecified; Z87.891 Personal history of nicotine dependence; Z91.19 Patient's noncompliance with other medical treatment and regimen; Z79.82 Long term (current) use of aspirin; Z79.02 Long term (current) use of antithrombotics/antiplatelets
CPT/HCPCS: 36415; 71010; 71020; 80048; 80053; 81001; 82948; 83880; 85025; 85610; 85730; 87086; 93005; 97139; J0690; J1940

== ENCOUNTER 2017-10-09 08:14 | Emergency (ER) | payer MEDICARE ==
[~2017-10-09] VITALS: Ht 180.3 cm; Wt 80.3 kg
[~2017-10-09 08:14] MED LIST changes: +COLACE100 M1 PO; +LACTULOSE20 GM/30 M PO; +NORCO 5-325 TA1 EACH PO; +SENOKOT8.6 MG PO; +ULTRAM50 MG PO
--- OUTSIDE RECORDS SUMMARY | 2017-10-09 08:16 | XMS REPORT ---
Author Author [facility] Address Unknown Phone Unavailable Care Team Providers Care Cow Rider Name Role Phone RASHMI MEDRANO Unavailable Unavailable SABRINA KERR Unavailable Unavailable Problems This patient has no known problems. Allergies, Adverse Reactions, Alerts This patient has no known allergies or adverse reactions. Medications This patient has no known medications. Results Test Description Test Time Test Comments Text Results Atomic Results Result Comments CHEST 2 VIEWS [place] [address] Patient Name: DELMIS CORREA MR #: [id number] : 1945 Age/Sex: 72/M Req # : [id number] [facility] Physician: RASHMI MEDRANO MD Ordered by: RASHMI MEDRANO MD Report #: [id number] Location: MED/SURG Room/Bed: [facility] _ Procedure: [id number] DX/CHEST 2 VIEWS Exam Date: 09/05/17 Exam Time: 0520 REPORT STATUS: Signed CHEST 2 VIEWS, Technique: CHEST 2 VIEWS Comparison: 07/12/2017 Clinical history: Follow -up CHF DISCUSSION: Heart/mediastinum: Stable enlarged status post sternotomy. Lungs: Central vascular congestion without overt edema. Pleural spaces: Stable blunting of the costophrenic angles, likely trace effusions. IMPRESSION: Cardiomegaly with central vascular congestion and trace effusions. Signed by: Dr Yanet Starks MD on 09/05/2017 6:32 AM Dictated By: YANET STARKS MD 1 Transcribed By: EN on 09/05/17631 COPY TO: RASHMI MEDRANO MD CHEST SINGLE (PORTABLE) [place] [id number] [place] [address] Patient Name: DELMIS CORREA MR #: [id number] : 1945 Age/Sex: 72/M Req #: [id number] Adm Physician: Ordered by: CHAPO LARSEN MD Report #: [id number] Location: ER Room/Bed: Procedure: [id number] DX/CHEST SINGLE (PORTABLE) Exam Date: 09/03/17 Exam Time: 1040 REPORT STATUS: Signed PROCEDURE: CHEST SINGLE (PORTABLE) TECHNIQUE: Portable AP chest INDICATION: Fluid on legs. COMPARISON: None. FINDINGS: Bilateral interstitial and alveolar opacity with cardiomegaly and postoperative sequela of sternotomy. Prominent central vasculature. No pleural effusions. Intact skeleton. CONCLUSION: Cardiomegaly with pulmonary edema consistent with volume overload. Dictated by: Luis Mir M.D. on 09/03/2017 at 11:08 Electronically approved by: Luis Mir M.D. on 2016 at 11:08 Dictated By: LUIS MIR MD 07 Transcribed By: ADRIANA on 1107 COPY TO: CHAPO LARSEN MD CHEST SINGLE (PORTABLE) [place] [address] Patient Name: DELMIS CORREA MR #: [id number] : 1945 Age/Sex: 72/M Req #: [id number] [facility] Physician: Ordered by: SABRINA KERR MD Report #: [id number] Location: ER Room/Bed: Procedure: [id number] DX/CHEST SINGLE (PORTABLE) Exam Date: 07/12/17 Exam Time: 1999 REPORT STATUS: Signed EXAMINATION: CHEST SINGLE (PORTABLE) 07/12/2017 6:37 PM COMPARISON: 11/02/2016 INDICATION: Chest pain DISCUSSION: LINES: None. LUNGS: Nonspecific left basilar opacity. PLEURA: No pleural effusion or pneumothorax. HEART AND MEDIASTINUM: Cardiomegaly, unchanged BONES AND SOFT TISSUES: No acute osseous lesion. Median sternotomy wires are intact. IMPRESSION: Cardiomegaly. Nonspecific left basilar opacities may represent atelectasis or edema. Sara Terry MD Signed by: Dr. Sara Terry M.D. on 07/12/2017 8:52 PM Dictated By: SARA TERRY MD 51 Transcribed By: EN on 07/12/172051 COPY TO: SABRINA KERR MD
[2017-10-09 09:31] LABS: BASOPHILS % 0.3 % (0.0-1.0); EOSINOPHILS # (AUTO) 0.6 (0.0-0.4); EOSINOPHILS % 5.1 % (0.0-6.0); HEMATOCRIT 46.7 % (38.2-49.6); HEMOGLOBIN 15.3 g/dL (14.0-18.0); LYMPHOCYTES # (AUTO) 1.3 (1.0-3.2); LYMPHOCYTES % 10.3 % (18.0-39.1); MEAN CORPUSCULAR HEMOGLOBIN 27.3 pg (28-32); MEAN CORPUSCULAR HGB CONC 32.8 g/dL (31-35); MEAN CORPUSCULAR VOLUME 83.2 fL (81-99); MONOCYTES # (AUTO) 1.4 (0.2-0.8); MONOCYTES % 11.3 % (4.4-11.3); NEUTROPHILS % 72.4 % (38.7-80.0); PLATELET COUNT 392 x10e3/uL (140-360); RED BLOOD COUNT 5.61 x10e6/uL (4.3-5.7)
[2017-10-09 09:39] LABS: ANION GAP 13.8 mmol/L (8-16); BLOOD UREA NITROGEN 26 mg/dL (7-26); BUN/CREATININE RATIO 27 (6-25); CALCIUM 9.9 mg/dL (8.4-10.2); CARBON DIOXIDE 23 mmol/L (22-29); CHLORIDE 101 mmol/L (98-107); CREATININE, SERUM 0.98 mg/dL (0.72-1.25); EST GLOMERULAR FILTRATION RATE > 60 ML/MIN (60-); GLUCOSE 112 mg/dL (74-118); POTASSIUM 4.8 mmol/L (3.5-5.1); SODIUM 133 mmol/L (136-145)
[2017-10-09 09:52] LABS: BILIRUBIN,URINE NEGATIVE (NEGATIVE); KETONES,URINE NEGATIVE (NEGATIVE); LEUKOCYTE ESTERASE ,URINE 2+ (NEGATIVE); NITRITE,URINE NEGATIVE (NEGATIVE); URINE UROBILINOGEN 0.2 mg/dL (0.2 - 1)
[2017-10-09 09:55] LABS: CLARITY,URINE CLOUDY (CLEAR); COLOR,URINE YELLOW (YELLOW); PROTEIN,URINE DIPSTICK TRACE (NEGATIVE)
[2017-10-09 09:59] LABS: BACTERIA,URINE MANY /HPF; EPITHELIAL CELLS,URINE FEW /LPF; RBC,URINE 0-5 /HPF (0-5); WBC,URINE (MAN) >50 /HPF (0-5)
[2017-10-09 12:00] VITALS: BP 114/71
== END 2017-10-09 12:15 | disposition home or self-care (01) ==
LOC: ER 08:14
DX: R30.0 Dysuria (principal); R33.9 Retention of urine, unspecified; N39.0 Urinary tract infection, site not specified; N40.1 Benign prostatic hyperplasia with lower urinary tract symptoms; I10 Essential (primary) hypertension; I51.9 Heart disease, unspecified; J98.4 Other disorders of lung; Z95.1 Presence of aortocoronary bypass graft
CPT/HCPCS: 36415; 80048; 81001; 85025; 87086; 87186; 99284

== ENCOUNTER 2018-05-13 13:52 | Emergency (ER) | payer MEDICARE, OTHER ==
[~2018-05-13] VITALS: Ht 180.3 cm; Wt 88.0 kg
[2018-05-13 14:58] LABS: BASOPHILS # (AUTO) 0.1 (0.0-0.1); EOSINOPHILS # (AUTO) 0.8 (0.0-0.4); EOSINOPHILS % 8.7 % (0.0-6.0); HEMATOCRIT 45.5 % (38.2-49.6); HEMOGLOBIN 14.4 g/dL (14.0-18.0); LYMPHOCYTES # (AUTO) 2.6 (1.0-3.2); LYMPHOCYTES % 28.3 % (18.0-39.1); MEAN CORPUSCULAR HEMOGLOBIN 28.3 pg (28-32); MEAN CORPUSCULAR HGB CONC 31.6 g/dL (31-35); MEAN CORPUSCULAR VOLUME 89.4 fL (81-99); MONOCYTES # (AUTO) 1.2 (0.2-0.8); MONOCYTES % 12.5 % (4.4-11.3); NEUTROPHILS # (AUTO) 4.5 (2.1-6.9); NEUTROPHILS % 49.1 % (38.7-80.0); PLATELET COUNT 298 x10e3/uL (140-360); RED BLOOD COUNT 5.09 x10e6/uL (4.3-5.7); RED CELL DISTRIBUTION WIDTH 16.4 % (11.7-14.4)
[2018-05-13 15:11] LABS: ALANINE AMINOTRANSFERASE 12 IU/L (0-55); ALBUMIN 3.7 g/dL (3.5-5.0); ALBUMIN/GLOBULIN RATIO 1.2 (0.8-2.0); ALKALINE PHOSPHATASE 121 IU/L (40-150); ANION GAP 13.7 mmol/L (8-16); BLOOD UREA NITROGEN 18 mg/dL (7-26); BUN/CREATININE RATIO 16 (6-25); CALCIUM 10.1 mg/dL (8.4-10.2); CARBON DIOXIDE 32 mmol/L (22-29); CHLORIDE 101 mmol/L (98-107); CREATINE KINASE 20 IU/L (30-200); CREATININE, SERUM 1.12 mg/dL (0.72-1.25); EST GLOMERULAR FILTRATION RATE > 60 ML/MIN (60-); GLUCOSE 76 mg/dL (74-118); POTASSIUM 3.7 mmol/L (3.5-5.1); SODIUM 143 mmol/L (136-145)
[2018-05-13 15:12] LABS: BILIRUBIN,URINE NEGATIVE (NEGATIVE); CLARITY,URINE SL CLOUDY (CLEAR); COLOR,URINE YELLOW (YELLOW); KETONES,URINE NEGATIVE (NEGATIVE); LEUKOCYTE ESTERASE ,URINE TRACE (NEGATIVE); NITRITE,URINE NEGATIVE (NEGATIVE); PROTEIN,URINE DIPSTICK 1+ (NEGATIVE); URINE UROBILINOGEN 1 mg/dL (0.2 - 1)
[2018-05-13 15:23] LABS: BACTERIA,URINE MANY /HPF; WBC,URINE (MAN) 21-50 /HPF (0-5)
[2018-05-13] MEDS ORDERED: FUROSEMIDE INJ 10 MG/ML 4 ML VIAL IV ONE (18:30)
[2018-05-13] MEDS ORDERED: CEFTRIAXONE SOD 1 GM VIAL IM ONE (18:30)
[2018-05-13] MEDS ORDERED: ASPIRIN 81 MG CHEW TAB PO ONE (18:30)
[2018-05-13] MEDS ORDERED: SODIUM CHLORIDE FLUSH 10 ML SYR INJ PRN (18:30)
--- NOTE | 2018-05-13 19:12 | Diagnostic Imaging Report ---
EXAMINATION: Scrotal ultrasound CLINICAL INDICATION: Right scrotal bleeding. History of left orchiectomy COMPARISON: None.. TECHNIQUE: Grayscale and color Doppler evaluation of the scrotum was performed in transverse and longitudinal planes. FINDINGS: The right testicle measures 3.6 x 1.8 x 1.8 cm. (Estimated volume 6.2 mL). Normal echogenicity. There are no masses or calcifications.. The right epididymis measures 1.2 x 0.9 x 1.5 cm. Normal vascularity. Normal echogenicity. 0.9 cm cystic, anechoic lesion in the right epididymal head.. No right hydrocele. A right varicocele is identified. There is normal venous flow to the right testicle. Arterial flow could not be documented. The left testicle and epididymis are absent, consistent with history of orchiectomy. No left hydrocele. A left varicocele noted. Marked scrotal skin thickening, without hyperechoic shadowing to suggest subcutaneous tissue air. Impression: 1. Marked scrotal skin thickening. Although no hyperechoic shadowing is noted to suggest subcutaneous air, CT pelvis would be helpful for evaluation, to exclude Destin's gangrene. 2. There is normal venous flow in the right testicle, however, no arterial flow could be documented. There is no testicular enlargement. Although torsion is unlikely, it cannot be entirely excluded. 3. 0.9 cm right epididymal head cyst versus spermatocele. 4. Bilateral varicoceles. Signed by: Dr. Jamal Freeman M.D. on 05/13/2018 7:09 PM
[2018-05-14] MEDS ORDERED: FUROSEMIDE INJ 10 MG/ML 4 ML VIAL IV SCH (09:00)
== END 2018-05-13 20:45 | disposition left against medical advice (07) ==
LOC: ER 13:52 → ERHOLD 19:02 → UNDOADMOB 19:02
DX: N50.819 Testicular pain, unspecified (principal); I27.9 Pulmonary heart disease, unspecified; I50.9 Heart failure, unspecified
CPT/HCPCS: 36415; 76870; 80053; 81001; 82550; 82553; 83880; 84484; 85025; 93005; 93976; 99283; J0696; J1940

== ENCOUNTER 2018-06-17 20:33 | Inpatient (IN) | payer MEDICARE, OTHER ==
[~2018-06-17] VITALS: Ht 180.3 cm; Wt 98.6 kg
[2018-06-17 21:33] LABS: BASOPHILS # (AUTO) 0.1 (0.0-0.1); BASOPHILS % 0.8 % (0.0-1.0); EOSINOPHILS # (AUTO) 1.3 (0.0-0.4); EOSINOPHILS % 12.5 % (0.0-6.0); HEMATOCRIT 42.8 % (38.2-49.6); HEMOGLOBIN 13.8 g/dL (14.0-18.0); LYMPHOCYTES # (AUTO) 1.2 (1.0-3.2); MEAN CORPUSCULAR HEMOGLOBIN 28.3 pg (28-32); MEAN CORPUSCULAR HGB CONC 32.2 g/dL (31-35); MEAN CORPUSCULAR VOLUME 87.7 fL (81-99); MONOCYTES % 10.2 % (4.4-11.3); NEUTROPHILS # (AUTO) 6.6 (2.1-6.9); NEUTROPHILS % 64.1 % (38.7-80.0); PLATELET COUNT 285 x10e3/uL (140-360); RED BLOOD COUNT 4.88 x10e6/uL (4.3-5.7)
[2018-06-17 21:39] LABS: INR 1.05; PROTHROMBIN TIME 14.7 seconds (11.9-14.5)
[2018-06-17 21:40] LABS: PARTIAL THROMBOPLASTIN TIME 31.3 seconds (23.8-35.5)
--- NOTE | 2018-06-17 21:48 | Diagnostic Imaging Report ---
EXAM: CHEST SINGLE (PORTABLE), AP 1 view INDICATION: Swelling in legs, pain to right hand COMPARISON: AP view of the chest September 03, 2017 FINDINGS: LINES/TUBES: None LUNGS: Interval development of pulmonary edema. PLEURA: No effusions or pneumothorax. HEART AND MEDIASTINUM: Cardiomegaly and central vascular congestion. Stable median sternotomy wires. BONES AND SOFT TISSUES: No acute findings. IMPRESSION: Interval development of pulmonary edema bilaterally. Signed by: Dr. Leisa Barba M.D. on 06/17/2018 9:45 PM
[2018-06-17] MEDS ORDERED: NITROGLYCERIN0.4 MG SL (22:52)
[2018-06-17] MEDS ORDERED: POTASSIUM CHLO20 ME1 PO (22:52)
[2018-06-17] MEDS ORDERED: FUROSEMIDE INJ 10 MG/ML 4 ML VIAL IV ONE (23:30)
[2018-06-17 23:48] LABS: ALANINE AMINOTRANSFERASE 7 IU/L (0-55); ALBUMIN 3.2 g/dL (3.5-5.0); ALKALINE PHOSPHATASE 105 IU/L (40-150); ANION GAP 14.7 mmol/L (8-16); BLOOD UREA NITROGEN 13 mg/dL (7-26); BUN/CREATININE RATIO 13 (6-25); CALCIUM 9.7 mg/dL (8.4-10.2); CARBON DIOXIDE 26 mmol/L (22-29); CHLORIDE 102 mmol/L (98-107); CREATINE KINASE 42 IU/L (30-200); CREATININE, SERUM 1.03 mg/dL (0.72-1.25); EST GLOMERULAR FILTRATION RATE > 60 ML/MIN (60-); GLUCOSE 135 mg/dL (74-118); POTASSIUM 3.7 mmol/L (3.5-5.1); SODIUM 139 mmol/L (136-145)
[2018-06-17 23:49] LABS: CREATINE KINASE MB < 1.00 ng/mL (0-4.3)
[2018-06-18] VITALS (7 sets, daily range): BP systolic 99–136; BP diastolic 70–92
[2018-06-18] MEDS ORDERED: PIPER-TAZ 3.375 GM 50 ML IV SCH (00:15)
[2018-06-18] MEDS ORDERED: TRAMADOL HCL 50 MG TAB PO PRN (00:15)
[2018-06-18] MEDS: VANCOMYCIN 1GM/NS 250 ML 250 ML IV SCH ×2 (00:47→13:30)
[2018-06-18 02:21] LABS: CLARITY,URINE CLOUDY (CLEAR); COLOR,URINE YELLOW (YELLOW); LEUKOCYTE ESTERASE ,URINE NEGATIVE (NEGATIVE); NITRITE,URINE NEGATIVE (NEGATIVE); PROTEIN,URINE DIPSTICK 2+ (NEGATIVE)
[2018-06-18 02:22] LABS: BILIRUBIN,URINE 2+ (NEGATIVE); KETONES,URINE NEGATIVE (NEGATIVE); URINE UROBILINOGEN 4 mg/dL (0.2 - 1)
[2018-06-18 02:23] LABS: AMORPHOUS SEDIMENT,URINE MANY (FEW); BACTERIA,URINE MANY /HPF; EPITHELIAL CELLS,URINE FEW /LPF; RBC,URINE 0-5 /HPF (0-5)
[2018-06-18 07:43] LABS: CREATINE KINASE MB 0.6 ng/mL (0-5.0)
[2018-06-18] MEDS ORDERED: ENALAPRIL MALEATE 10 MG TAB PO SCH (09:00)
[2018-06-18] MEDS ORDERED: FUROSEMIDE INJ 10 MG/ML 4 ML VIAL IV SCH ×2 (09:00→12:00)
[2018-06-18] MEDS: ASPIRIN 81 MG CHEW TAB PO SCH (09:29)
[2018-06-18] MEDS: CLOPIDOGREL BISULFATE 75 MG TAB PO SCH (09:29)
[2018-06-18] MEDS: PIPER-TAZ 3.375 GM 50 ML IV SCH ×2 (09:32→18:05)
[2018-06-18] MEDS ORDERED: ONDANSETRON HCL INJ 2 MG/ML VIAL IV PRN (10:15)
[2018-06-18] MEDS ORDERED: NITROGLYCERIN 0.4 MG SUBL SL SCH (10:15)
[2018-06-18] MEDS ORDERED: NITROGLYCERIN 0.4 MG SUBL SL PRN (11:30)
[2018-06-18] MEDS: FUROSEMIDE INJ 10 MG/ML 4 ML VIAL IV SCH ×3 (12:00→23:56)
--- NOTE | 2018-06-18 12:54 | History and Physical ---
CHIEF COMPLAINT: Bilateral lower extremity cellulitis. HPI: This is a 73-year-old male, very noncompliant. I have seen this patient in three different hospitals due to noncompliance, history of heart failure, follows up with Dr. Silverman. Has a history of CAD in the past, very noncompliant, and very belligerent to the staff on many admissions, who was sent in by the dustless operator due to lower extremity cellulitis. According to the at bedside, she reports that he has had multiple falls over the last several days. I have know this patient for many hospitals and he has had always chronic difficulty walking and he has been into many multiple retirement facilities in the past and his baseline mobility is very weak. He supposed to use a walker, but he refuses to uses it. Patient was evaluated at bedside in the ER, currently doing well with no complaints. He denies any chest pain or palpitations. His lower extremity redness is just scratches and bruises, but not really consistent with significant cellulitis. REVIEW OF SYSTEMS PERTINENT POSITIVE: He had a fall and he has scrapings on his bilateral cabrera. PERTINENT NEGATIVE: Denies any chest pain, palpitation, nausea, vomiting, diarrhea, dysuria hematuria, frequency, urgency, lightheadedness, dizziness, abdominal pain, headache, shortness of breath, cough, congestion, fever or any other complaints. The rest of 14-point review of systems have been reviewed with the patient and are negative. ALLERGIES: AZITHROMYCIN. HOME MEDICATIONS 1. Lasix 40 mg b.i.d. 2. Potassium supplements 20 mEq daily. 3. Aspirin 81 mg daily. 4. Plavix 75 mg daily. 5. Nitroglycerin 0.4 mg sublingual every 5 minutes p.r.n. 6. Tramadol for pain. PAST MEDICAL HISTORY: CAD, medical noncompliance, lower extremity edema, scrotal edema, chronic baseline weakness, very debilitated, and noncompliant. SURGICAL HISTORY: Denies, none. FAMILY HISTORY: Hypertension and diabetes. SOCIAL HISTORY: No drugs. No alcohol. Does not smoke. He is . VITAL SIGNS: Temperature is 98.7, pulse is 92, respiratory rate is 20, blood pressure is 119/76, pulse ox 98% on 2 liters nasal cannula. LAB FINDINGS: Show white count 10.2, hemoglobin 13.8, hematocrit 42.8, and platelets of 285. Coagulation; PT 14, INR 1, and PTT 31.3. Chemistry; sodium 139, potassium 3.7, chloride 102, bicarb is 26, anion gap of 14, BUN is 13, creatinine is 1, glucose is 135, calcium is 9.7, AST 11, ALT 7, alkaline phosphorous 105, total bilirubin is 0.8. Troponins are negative. BNP is 2497. Urinalysis concerning for underlying UTI. Blood cultures are still pending. IMAGING STUDIES: Chest x-ray showed pulmonary edema bilaterally. Lower extremity venous Doppler pending. PHYSICAL EXAM GENERAL: Not in acute distress, alert and oriented x3, cooperative on exam. HEENT: Head is normocephalic and atraumatic. Eyes: Pupils are equal, round and reactive to light bilaterally. Extraocular movements are intact bilaterally. NECK: Supple with good range of motion. THROAT: No evidence of erythema or exudates in the posterior pharynx. Has poor dentition. PULMONARY: He has positive rales. Mild crackles appreciated. Good expiratory effort. CARDIOVASCULAR: Positive S1, S2. No murmurs, rubs, or gallops appreciated. ABDOMEN: Soft, nondistended, and nontender to palpation. Bowel sounds present. MUSCULOSKELETAL: Strength is 5/5 throughout. No evidence of any musculoskeletal deficit on examination. No weakness appreciated. NEUROLOGICAL: Cranial nerves II through XII grossly intact. No evidence of any neurological deficit on exam. SKIN: Intact. Warm to touch. Good cap refill. PSYCHIATRIC: Normal affect and mood. EXTREMITIES: He has 1 to 2+ pedal edema bilateral lower extremities. IMPRESSION 1. Bilateral lower extremity cellulitis due to a recent fall with scrapings on the bilateral shins. 2. Acute exacerbation of congestive heart failure with history of diastolic and systolic dysfunction. 3. Fall, this is all chronic. 4. Medical noncompliance. 5. Hypertension. 6. Morbid obesity. 7. Scrotal swelling. PLAN: At this time, we are going to trend the troponins x2. Cardiology will be consulted. We are going to resume same home cardioprotective medications. Put him on Lasix as well q.6 hours x4 doses. In relation to his cellulitis, he will be on IV vancomycin and Zosyn, which he is currently on. We will get PT/OT to eval his ambulation. In relation to his prophylaxis, we will put him on Lovenox. Currently, his vitals are stable and labs reviewed and stable. We will continue the same plan of care and we will evaluate him again tomorrow. Job#: [id number] NETTE
[2018-06-18] MEDS ORDERED: SODIUM CHLORIDE 0.9% 250ML 250 ML ONE (13:29)
[2018-06-18 16:06] LABS: CREATINE KINASE MB 0.5 ng/mL (0-5.0)
[2018-06-18] MEDS: ENOXAPARIN SOD INJ 40 MG/0.4 ML SYR SC SCH (17:00)
[2018-06-18] MEDS: HYDROCODONE/APAP 5MG-325MG TAB PO PRN (17:30)
[2018-06-18] MEDS: BALSAM PERU/CASTOR OIL 60 GM OINT...G. TP SCH (21:00)
[2018-06-19] VITALS (7 sets, daily range): BP systolic 100–134; BP diastolic 63–85
[2018-06-19] MEDS: VANCOMYCIN 1GM/NS 250 ML 250 ML IV SCH ×2 (01:43→13:00)
[2018-06-19] MEDS ORDERED: SODIUM CHLORIDE 0.9% 50ML 50 ML ONE (03:01)
[2018-06-19] MEDS: PIPER-TAZ 3.375 GM 50 ML IV SCH ×3 (03:24→18:30)
[2018-06-19 07:01] LABS: BASOPHILS # (AUTO) 0.1 (0.0-0.1); BASOPHILS % 0.7 % (0.0-1.0); EOSINOPHILS # (AUTO) 1.7 (0.0-0.4); EOSINOPHILS % 17.4 % (0.0-6.0); HEMATOCRIT 41.5 % (38.2-49.6); HEMOGLOBIN 13.2 g/dL (14.0-18.0); LYMPHOCYTES # (AUTO) 1.4 (1.0-3.2); LYMPHOCYTES % 14.2 % (18.0-39.1); MEAN CORPUSCULAR HEMOGLOBIN 27.7 pg (28-32); MEAN CORPUSCULAR HGB CONC 31.8 g/dL (31-35); MEAN CORPUSCULAR VOLUME 87.2 fL (81-99); MONOCYTES # (AUTO) 0.9 (0.2-0.8); MONOCYTES % 9.4 % (4.4-11.3); NEUTROPHILS # (AUTO) 5.7 (2.1-6.9); NEUTROPHILS % 57.9 % (38.7-80.0); PLATELET COUNT 289 x10e3/uL (140-360); RED BLOOD COUNT 4.76 x10e6/uL (4.3-5.7); RED CELL DISTRIBUTION WIDTH 16.3 % (11.7-14.4)
[2018-06-19 07:22] LABS: ALANINE AMINOTRANSFERASE 7 IU/L (0-55); ALBUMIN 3.1 g/dL (3.5-5.0); ALKALINE PHOSPHATASE 92 IU/L (40-150); ANION GAP 17.3 mmol/L (8-16); BLOOD UREA NITROGEN 12 mg/dL (7-26); BUN/CREATININE RATIO 11 (6-25); CALCIUM 9.4 mg/dL (8.4-10.2); CARBON DIOXIDE 31 mmol/L (22-29); CHLORIDE 97 mmol/L (98-107); CREATININE, SERUM 1.14 mg/dL (0.72-1.25); EST GLOMERULAR FILTRATION RATE > 60 ML/MIN (60-); GLUCOSE 127 mg/dL (74-118); POTASSIUM 3.3 mmol/L (3.5-5.1); SODIUM 142 mmol/L (136-145)
[2018-06-19 09:27] LABS: EOSINOPHILS % (MANUAL) 12 % (0-7); LYMPHOCYTES % (MANUAL) 17 % (19-48); MONOCYTES % (MANUAL) 8 % (3.4-9.0); NEUTROPHILS % (MANUAL) 63 % (40-74)
[2018-06-19 09:28] LABS: PLATELET ESTIMATE ADEQUATE; PLATELET MORPHOLOGY COMMENT NORMAL; RBC MORPHOLOGY COMMENT NORMAL
[2018-06-19] MEDS: ASPIRIN 81 MG CHEW TAB PO SCH (09:44)
[2018-06-19] MEDS: CLOPIDOGREL BISULFATE 75 MG TAB PO SCH (09:44)
[2018-06-19] MEDS: BALSAM PERU/CASTOR OIL 60 GM OINT...G. TP SCH ×2 (10:00→17:00)
[2018-06-19] MEDS ORDERED: POTASSIUM CHLORIDE 20 MEQ TAB CR PO ONE ×2 (10:15→17:00)
--- NOTE | 2018-06-19 10:36 | Progress Note ---
DATE: June 19, 2018 INTERNAL MEDICINE PROGRESS NOTE SUBJECTIVE: Patient is doing well today. He had some increased urine output. His scrotum is still swollen and still has some pitting edema. His lower extremity cellulitis has improved tremendously. He is tolerating diet. OBJECTIVE VITAL SIGNS: Temperature is 97.7, pulse is 94, respiratory rate is 17, blood pressure is 134/70, pulse ox 92% on room air. GENERAL: Not in acute distress, alert and oriented x3, cooperative on examination. HEENT: Head normocephalic, atraumatic. Eyes: Pupils equally round and reactive to light bilaterally. Extraocular movements intact bilaterally. Throat: No evidence of any erythema or exudates in the posterior pharynx. Has poor dentition. NECK: Supple with good range of motion. PULMONARY: Clear to auscultation bilaterally. No wheezing, no rales, no rhonchi, no crackles appreciated. CARDIOVASCULAR: Positive S1 and S2. No murmurs, rubs, or gallops appreciated. ABDOMEN: Soft, nondistended, nontender to palpation. Bowel sounds present. MUSCULOSKELETAL: Strength is 5/5 throughout. No evidence of any musculoskeletal deficit on examination. No weakness appreciated. NEUROLOGICAL: Cranial nerves II-XII grossly intact. No evidence of any neurological deficit on exam. SKIN: Intact. Warm to touch. Good capillary refill. PSYCHIATRIC: Normal affect and mood. EXTREMITIES: He has 2 to 3+ pedal edema in bilateral lower extremity with scrotal swelling. LAB FINDINGS: Show white count 9.8, hemoglobin 13.2, hematocrit is 42, platelets of 289. Chemistry: Sodium 142, potassium 3.3, chloride 97, bicarb 31, anion gap is 17, BUN is 12, creatinine is 1.1. Total bilirubin is 2.1. Blood cultures; no growth to date. IMAGING STUDIES: None. IMPRESSION 1. Bilateral lower extremity cellulitis due to recent fall with scrapings on the bilateral shins. 2. Acute exacerbation of congestive heart failure with history of diastolic and systolic dysfunction. 3. Medical noncompliance. 4. Fall and medically debilitated, which is all chronic. 5. Hypertension. 6. Morbid obesity. 7. Scrotal swelling. PLAN: At this time, we will put him on Lasix drip at 10 mg per hour. Replace potassium x2 doses. Cardiology was consulted as well. We will continue with IV vancomycin and Zosyn. Vancomycin trough is appropriate right now. Continue with PT/OT for ambulation. He is on Lovenox for prophylaxis. We will get a.m. labs. Job#: [id number] CHELSEA
[2018-06-19] MEDS: ACETAZOLAMIDE SODIUM 500 MG/VIAL IV SCH ×3 (10:51→23:37)
[2018-06-19] MEDS: FUROSEMIDE INJ 100 MG in SODIUM CHLORIDE 0.9% 100 ML 90 ML IV SCH ×2 (12:00→23:53)
[2018-06-19] MEDS: ENOXAPARIN SOD INJ 40 MG/0.4 ML SYR SC SCH (17:00)
[2018-06-19] MEDS ORDERED: ACETAZOLAMIDE SODIUM 500 MG/VIAL IV ONE (23:30)
[2018-06-19] MEDS: HYDROCODONE/APAP 5MG-325MG TAB PO PRN (23:37)
[2018-06-20] VITALS (8 sets, daily range): BP systolic 88–115; BP diastolic 58–80
[2018-06-20] MEDS: VANCOMYCIN 1GM/NS 250 ML 250 ML IV SCH ×2 (01:00→13:00)
[2018-06-20] MEDS: PIPER-TAZ 3.375 GM 50 ML IV SCH ×3 (02:53→17:43)
[2018-06-20] MEDS: HYDROCODONE/APAP 5MG-325MG TAB PO PRN ×2 (07:50→17:51)
[2018-06-20] MEDS: CLOPIDOGREL BISULFATE 75 MG TAB PO SCH (08:04)
[2018-06-20] MEDS: ASPIRIN 81 MG CHEW TAB PO SCH (08:04)
[2018-06-20] MEDS: BALSAM PERU/CASTOR OIL 60 GM OINT...G. TP SCH ×2 (08:04→17:43)
[2018-06-20] MEDS ORDERED: POTASSIUM CHLORIDE 20 MEQ TAB CR PO ONE (09:30)
[2018-06-20] MEDS ORDERED: ACETAZOLAMIDE SODIUM 500 MG/VIAL IV SCH (09:45)
--- NOTE | 2018-06-20 10:18 | Progress Note ---
DATE: June 20, 2018 INTERNAL MEDICINE PROGRESS NOTE SUBJECTIVE: The patient is doing much better today with no other complaints. He is currently on Lasix drip with much improvement in scrotal edema and lower extremity edema. OBJECTIVE VITAL SIGNS: Temperature is 96.7, pulse 86, respiratory rate is 16, blood pressure is 115/72, pulse ox 93%. He is on room air. GENERAL: Not in acute distress. Alert and oriented times 3. Cooperative on examination. HEENT: Head is normocephalic and atraumatic. Eyes: Pupils equal, round and reactive to light bilaterally. Extraocular movements intact bilaterally. NECK: Supple. Good range of motion. Throat with no evidence of any erythema or exudates in the posterior pharynx. Has poor dentition. PULMONARY: Clear to auscultation bilaterally. No wheezing. No rales. No rhonchi. No crackles appreciated. CARDIOVASCULAR: Positive S1 and S2. No murmurs, rubs or gallops appreciated. ABDOMEN: Soft, nondistended and nontender to palpation. Bowel sounds present. MUSCULOSKELETAL: Strength is 5/5 throughout. No evidence of any muscle deficit on examination. No weakness appreciated. NEUROLOGICAL: Cranial nerves II-XII are grossly intact. No evidence of any neurological deficits on exam. SKIN: Intact. Warm to touch. Good cap refill. PSYCHIATRIC: Normal affect and mood. EXTREMITIES: He has 1-2+ pedal edema, as well as scrotal edema. LAB FINDINGS: Show white count of 9.8, hemoglobin 13, hematocrit 41, and platelets of 289,000. Chemistry: Sodium is 143, potassium 3.3, chloride 97, bicarb 31, anion gap of 17, BUN is 12, creatinine is 1.1. Albumin is 3.1. Urinalysis concerning for UTI. Blood cultures were no growth to date. IMAGING STUDIES: None. IMPRESSION 1. Bilateral lower extremity cellulitis due to recent fall with scrapings on the bilateral shins. 2. Acute exacerbation of congestive heart failure with history of diastolic and systolic dysfunction. 3. Medical noncompliance. 4. Fall due to medical debilitation, which is all chronic. 5. Hypertension. 6. Morbid obesity. 7. Scrotal swelling. 8. Medical noncompliance. PLAN: At this time, continue with Lasix drip at 10 mg per hour. Potassium has been replaced. Cardiology is following. Continue with IV vancomycin and Zosyn. Will discuss with the nurse about getting the next vanc trough. Continue with PT and OT for ambulation. Continue with Lovenox for DVT prophylaxis. Will also give him Diamox for his underlying rise in bicarb level. Get a.m. labs. Job#: [id number] VIKY
[2018-06-20] MEDS: FUROSEMIDE INJ 100 MG in SODIUM CHLORIDE 0.9% 100 ML 90 ML IV SCH ×2 (10:35→20:05)
[2018-06-20] MEDS: ACETAZOLAMIDE SODIUM 500 MG/VIAL IV SCH (17:43)
[2018-06-20] MEDS: ENOXAPARIN SOD INJ 40 MG/0.4 ML SYR SC SCH (17:51)
[2018-06-21] VITALS (8 sets, daily range): BP systolic 106–127; BP diastolic 58–76
[2018-06-21] MEDS: VANCOMYCIN 1GM/NS 250 ML 250 ML IV SCH (01:00)
[2018-06-21] MEDS: ACETAZOLAMIDE SODIUM 500 MG/VIAL IV SCH (02:16)
[2018-06-21] MEDS: PIPER-TAZ 3.375 GM 50 ML IV SCH (02:16)
[2018-06-21] MEDS: FUROSEMIDE INJ 100 MG in SODIUM CHLORIDE 0.9% 100 ML 90 ML IV SCH (03:30)
[2018-06-21 05:30] LABS: BASOPHILS # (AUTO) 0.1 (0.0-0.1); BASOPHILS % 0.9 % (0.0-1.0); EOSINOPHILS # (AUTO) 2.2 (0.0-0.4); EOSINOPHILS % 22.6 % (0.0-6.0); HEMATOCRIT 43.8 % (38.2-49.6); LYMPHOCYTES # (AUTO) 1.1 (1.0-3.2); LYMPHOCYTES % 11.5 % (18.0-39.1); MEAN CORPUSCULAR HEMOGLOBIN 28.1 pg (28-32); MEAN CORPUSCULAR VOLUME 87.8 fL (81-99); MONOCYTES # (AUTO) 1.1 (0.2-0.8); MONOCYTES % 10.8 % (4.4-11.3); NEUTROPHILS # (AUTO) 5.3 (2.1-6.9); NEUTROPHILS % 53.8 % (38.7-80.0); PLATELET COUNT 332 x10e3/uL (140-360); RED BLOOD COUNT 4.99 x10e6/uL (4.3-5.7); RED CELL DISTRIBUTION WIDTH 16.2 % (11.7-14.4)
[2018-06-21 06:05] LABS: ANION GAP 18.1 mmol/L (8-16); CALCIUM 9.8 mg/dL (8.4-10.2); CREATININE, SERUM 1.4 mg/dL (0.72-1.25); POTASSIUM 3.1 mmol/L (3.5-5.1)
[2018-06-21] MEDS: BALSAM PERU/CASTOR OIL 60 GM OINT...G. TP SCH ×2 (08:30→16:59)
[2018-06-21] MEDS: ASPIRIN 81 MG CHEW TAB PO SCH (09:02)
[2018-06-21] MEDS: CLOPIDOGREL BISULFATE 75 MG TAB PO SCH (09:02)
[2018-06-21 09:26] LABS: EOSINOPHILS % (MANUAL) 17 % (0-7); LYMPHOCYTES % (MANUAL) 13 % (19-48); MONOCYTES % (MANUAL) 2 % (3.4-9.0); NEUTROPHILS % (MANUAL) 68 % (40-74)
[2018-06-21 09:27] LABS: PLATELET ESTIMATE ADEQUATE; PLATELET MORPHOLOGY COMMENT NORMAL; RBC MORPHOLOGY COMMENT NORMAL
[2018-06-21] MEDS: POTASSIUM CHLORIDE 20 MEQ TAB CR PO SCH ×2 (10:09→17:10)
[2018-06-21] MEDS: DOXYCYCLINE HYCLATE TABLET 100 MG TAB PO SCH ×2 (10:10→21:22)
[2018-06-21] MEDS ORDERED: FUROSEMIDE INJ 100 MG in SODIUM CHLORIDE 0.9% 100 ML 90 ML IV SCH (10:10)
--- NOTE | 2018-06-21 10:35 | Progress Note ---
DATE: June 21, 2018 INTERNAL MEDICINE PROGRESS NOTE SUBJECTIVE: Patient is doing well today with no other complaints. His lower extremity cellulitis improved. His edema is much improved, as well as his scrotal swelling. OBJECTIVE VITALS: Temperature is 97.6, pulse 75, respiratory rate 16, blood pressure 127/72, pulse ox 95% on room air. GENERAL: Not in acute distress. Alert and oriented times 3. Cooperative on examination. HEENT: Head is normocephalic and atraumatic. Eyes: Pupils equal, round and reactive to light bilaterally. Extraocular movements intact bilaterally. NECK: Supple. Good range of motion. Throat with no evidence of any erythema or exudates in the posterior pharynx. Has poor dentition. PULMONARY: Clear to auscultation bilaterally. No wheezing. No rales. No rhonchi. No crackles appreciated. CARDIOVASCULAR: Positive S1 and S2. No murmurs, rubs or gallops appreciated. ABDOMEN: Soft, nondistended and nontender to palpation. Bowel sounds present. MUSCULOSKELETAL: Strength is 5/5 throughout. No evidence of any muscle deficit on examination. No weakness appreciated. NEUROLOGICAL: Cranial nerves II-XII are grossly intact. No evidence of any neurological deficits on exam. SKIN: Intact. Warm to touch. Good cap refill. PSYCHIATRIC: Normal affect and mood. EXTREMITIES: He has trace edema. Scrotal swelling has improved tremendously. LAB FINDINGS: Show a white count of 9.8, hemoglobin 14, hematocrit 44, and platelets of 332,000. Coagulation: PT 14.7, INR 1.05 and PTT 31. Chemistry: Sodium 140, potassium 3.1, chloride 99, bicarb 26, anion gap of 18, BUN is 14, creatinine is 1.4, glucose is 124. Calcium 9.8. LFTs were normal. MICROBIOLOGY: Blood cultures were negative. IMAGING STUDIES: None. IMPRESSION 1. Bilateral lower extremity cellulitis with recent fall: Now improving. 2. Acute exacerbation of congestive heart failure with history of diastolic and systolic dysfunction. 3. Medical noncompliance. 4. Fall due to medical debilitation: Seems to be chronic. 5. Hypertension. 6. Morbid obesity. 7. Scrotal swelling, improving. PLAN: At this time, will discontinue the IV vancomycin and Zosyn due to rise in creatinine. Add oral doxycycline for him. His cellulitis is improving tremendously. In relation to his heart failure, his scrotal swelling has improved. His lower extremity edema improved. Will decrease the Lasix drip to 5 mg per hour to maximize the amount of urine output. Get a chemistry in the morning. Replace potassium. The patient worked with PT, and he is medically debilitated. They recommend penitentiary in which a case management order has been placed for penitentiary placement. In relation to his hypertension, it is well controlled and managed. His scrotal swelling has improved as well. Will get a.m. labs. Discussed case with the nurse taking care of him as well. Job#: [id number]
[2018-06-21] MEDS ORDERED: POTASSIUM CHLORIDE 10MEQ EA PO NR (12:30)
--- OUTSIDE RECORDS SUMMARY | 2018-06-21 13:39 | XMS REPORT | Continuity of Care Document ---
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 - VENTRAL HERNIA WITHOUT OBSTRUC Active 12/30/2016 [facility] [place] I50.9 - "HEART FAILURE, UNSPECIFIED" Active 11/30/2016 [facility] [place] R05 - COUGH Active [facility]/23[facility] Metabolic encephalopathy 12/30/2017 [facility] Ventricular tachycardia 12/30/2017 [facility] Encounter for immunization 12/30/2017 [facility] Acute on chronic systolic heart failure 12/30/2017 [facility] Other ascites 12/30/2017 [facility] Urinary tract infection, site not specified 12/30/2017 [facility] Scabies 12/30/2017 [facility] Unspecified dementia without behavioral disturbance 12/30/2017 [facility] Atherosclerotic heart disease of [place] coronary artery without angina pectoris 12/30/2017 [facility] Unspecified cirrhosis of liver 12/30/2017 [facility] Other specified disorders of the male genital organs 12/30/2017 [facility] Benign prostatic hyperplasia without lower urinary tract symptoms 12/30/2017 [facility] Hypertensive heart disease with heart failure 12/30/2017 [facility] Proteus (morganii) as the cause of diseases classified elsewhere 12/30/2017 [facility] Repeated falls 12/30/2017 [facility] Presence of aortocoronary bypass graft 12/30/2017 [facility] History of falling 12/30/2017 [facility] Anticoagulated Resolved Problem 12/30/2017 [facility] CAD (<span ID="[id number]">Confirmed</span>) Resolved Problem 12/30/2017 [facility] Liver disease Resolved Problem 12/30/2017 [facility] HTN (<span ID="[id number]">Confirmed</span>) Resolved Problem 12/30/2017 [facility] URINARY TRACT INFECTION, SITE NOT SPECIF Active [facility] ALTERED MENTAL STATUS, UNSPECIFIED Active [facility] UNSPECIFIED FALL, INITIAL ENCOUNTER Active [facility] Medications Medication Details Route Status Patient Instructions Ordering Provider Order Date Source tamsulosin 0.4 mg oral capsule 0.4 mg=1 cap, PO, After Dinner, # 30 cap, 0 Refill(s) Active 09/23/2017 [facility] cephalexin 500 mg oral capsule 500 mg=1 cap, PO, ABXQ6H, # 20 cap, 0 Refill(s) No Longer Active 09/23/2017 [facility] Bumex 1 mg, 1 tab, Route: PO, Drug form: TAB, BID, Dosing Weight 86.563, kg, Start date: 09/23/17 9:00:00 REGISTERED NURSE CARDIAC, Duration: 30 day, Stop date: 10/22/17 17:00:00 CSTNotes: (Same As: Bumex) Inactive 09/23/2017 [facility] Keflex 500 mg, 1 cap, Route: PO, Drug form: CAP, ABXQ6H, Dosing Weight 86.563, kg, Start date: 09/23/17 9:00:00 REGISTERED NURSE CARDIAC, Duration: 30 day, Stop date: 10/23/17 3:00:00 CSTNotes: Take on empty stomach. (Same As: Keflex) Inactive 09/23/2017 [facility] potassium chloride 20 mEq oral tablet, extended release 40 mEq, 2 tab, Route: PO, Drug form: ERTAB, ONCE, Dosing Weight 86.563, kg, Start date: 09/21/17 11:03:00 REGISTERED NURSE CARDIAC, Stop date: 09/21/17 11:03:00 CSTNotes: (Same as: K-Dur 20) "Do Not Crush" With food and full glass of water Inactive 09/21/2017 [facility] Ergocalciferol 50,000 IntlUnit, 1 cap, Route: PO, Drug form: CAP, Daily, Dosing Weight 86.563, kg, Start date: 09/21/17 9:00:00 REGISTERED NURSE CARDIAC, Duration: 3 day, Stop date: 09/23/17 9:00:00 CSTNotes: (Same as: Vitamin D) "Do Not Crush" No Longer Active 09/21/2017 [facility] Amiodarone 200 mg, 1 tab, Route: PO, Drug form: TAB, Daily, Dosing Weight 86.563, kg, Start date: 09/21/17 9:00:00 REGISTERED NURSE CARDIAC, Duration: 30 day, Stop date: 10/20/17 9:00:00 CSTNotes: (Same as: Cordarone) No Longer Active 09/21/2017 [facility] RN-Do not give Vanc till trough drawn 09/21 @ 5:30 RN-Do not give Vanc till trough drawn 09/21 @ 5:30, Attn:RN, Drug form: MISC, Route: MISC, ONCE, 09/21/17 5:00:00 REGISTERED NURSE CARDIAC, Stop date: 09/21/17 5:00:00 REGISTERED NURSE CARDIAC Inactive 09/21/2017 [facility] Amiodarone 400 mg, 2 tab, Route: PO, Drug form: TAB, ONCE, Dosing Weight 86.563, kg, Start date: 09/20/17 15:46:00 REGISTERED NURSE CARDIAC, Stop date: 09/20/17 15:46:00 CSTNotes: (Same as: Cordarone) Inactive 09/20/2017 [facility] Phenergan 12.5 mg, 0.5 mL, Route: IVPB, Q6H, Dosing Weight 86.563, kg, PRN Nausea & Vomiting, Start date: 09/20/17 15:03:00 REGISTERED NURSE CARDIAC, Duration: 30 day, Stop date: 10/20/17 15:02:00 CSTNotes: Do not give IV push. (Same as: Phenergan) No Longer Active 09/20/2017 [facility] morphine Sulfate 6 mg, 3 mL, Route: PO, Drug form: SOLN, Q2H, PRN Chest Pain, Start date: 09/20/17 14:11:00 REGISTERED NURSE CARDIAC, Duration: 30 day, Stop date: 10/20/17 14:10:00 CSTNotes: (Same as:MORPhine Sulfate) No Longer Active 09/20/2017 [facility] Nitroglycerin 0.4 MG Sublingual Tablet [Nitrostat] 0.4 mg, 1 tab, Route: SL, Drug form: TAB, Q5Min, Dosing Weight 86.563, kg, PRN Chest Pain, Start date: 09/20/17 13:48:00 REGISTERED NURSE CARDIAC, Duration: 3 doses or times, Stop date: 10/20/17 13:47:00 CSTNotes: (Same as:Nitroquick, Nitrostat) "Do Not Crush" Sublingual tablet No Longer Active 09/20/2017 [facility] Terbutaline 0.25 mg, 0.25 mL, Route: SUB-Q, Drug form: INJ, Q6H, Dosing Weight 86.563, kg, PRN Bradycardia, Start date: 09/20/17 13:48:00 REGISTERED NURSE CARDIAC, Duration: 30 day, Stop date: 10/20/17 13:47:00 CSTNotes: DO NOT USE IN [employer]SEM[employer] FEEDER AREA (Same As: Brethine) No Longer Active 09/20/2017 [facility] Lopressor 2.5 mg, 2.5 mL, Route: IVP, Drug form: INJ, Q3H, Dosing Weight 86.563, kg, PRN Tachycardia, Start date: 09/20/17 13:48:00 REGISTERED NURSE CARDIAC, Duration: 30 day, Stop date: 10/20/17 13:47:00 CSTNotes: (Same as: Lopressor) Push over 2 minutes No Longer Active 09/20/2017 [facility] Morphine 2 mg, Route: IVP, Q2H, Dosing Weight 86.563, kg, PRN Chest Pain, Start date: 09/20/17 13:47:00 REGISTERED NURSE CARDIAC, Duration: 30 day, Stop date: 10/20/17 13:46:00 REGISTERED NURSE CARDIAC Inactive 09/20/2017 [facility] Hydralazine 10 mg, 0.5 mL, Route: IV, Drug form: INJ, Q4H, Dosing Weight 86.563, kg, PRN Hypertension, Start date: 09/20/17 13:47:00 REGISTERED NURSE CARDIAC, Duration: 30 day, Stop date: 10/20/17 13:46:00 CSTNotes: (Same as: Apresoline) Push over 5 minutes No Longer Active 09/20/2017 [facility] cefepime 1 gm, Route: IVPB, ABXQ8H, Dosing Weight 86.563, kg, ., Start date: 09/19/17 21:00:00 REGISTERED NURSE CARDIAC, Duration: 10 day, Stop date: 09/29/17 13:00:00 REGISTERED NURSE CARDIAC, ABX Indication: Skin/Soft Tissue InfectionNotes: (Same As: Maxipime) MEDICATION WASTE Product Size: 1000 mg Product Wasted: ___ mg No Longer Active 09/20/2017 [facility] Vancomycin 1 ea, Route: MISC, ONCALL, Dosing Weight 86.563, kg, Start date: 09/19/17 18:00:00 REGISTERED NURSE CARDIAC, Duration: 10 day, Stop date: 09/29/17 17:59:00 REGISTERED NURSE CARDIAC, Pharmacy to dose, ABX Indication: Skin/Soft Tissue Infection Inactive 09/20/2017 [facility] Flomax 0.4 mg, 1 cap, Route: PO, Drug form: CAP, After Dinner, Dosing Weight 86.563, kg, Start date: 09/19/17 17:00:00 REGISTERED NURSE CARDIAC, Duration: 30 day, Stop date: 10/18/17 17:00:00 CSTNotes: (Same As: Flomax) "Do Not Crush" No Longer Active 09/19/2017 [facility] bumetanide 10 mg + Sodium Chloride 0.9% (titrate) 60 mL 60 mL, Rate: 10 ml/hr, Infuse over: 10 hr, Dosing Weight 86.563, kg, Route: IV, Total Volume: 100 mL, Start Date: 09/19/17 13:11:00 REGISTERED NURSE CARDIAC, Duration: 30 day, Stop date: 10/19/17 13:10:00 REGISTERED NURSE CARDIAC, Replace Every: 10 hrNotes: (Same As: Bumex) PROTECT FROM LIGHT No Longer Active 09/19/2017 [facility] Omnipaque 300 100 ml, 0 ml/hr, Route: IV, Drug Form: SOLN, Dosing Weight 86.563, kg, ONCE, Start date: 09/19/17 8:26:00 REGISTERED NURSE CARDIAC, Stop date: 09/19/17 8:26:00 CSTNotes: (Same as:Omnipaque 300). WASTE: F/P - Black; E - Municipal Trash Bin Inactive 09/19/2017 [facility] Permethrin 50 MG/ML Topical Cream 1 appl, Route: TOP, ONCE, Drug form: CRM, Start date: 09/18/17 12:20:00 REGISTERED NURSE CARDIAC, Stop date: 09/18/17 12:20:00 CSTNotes: (Same as: Elimite) WASTE: F/P - Black; E - Municipal Trash Bin Inactive 09/18/2017 [facility] Streptococcus pneumoniae serotype 1 capsular antigen diphtheria [id number] protein conjugate vaccine / Streptococcus pneumoniae serotype 14 capsular antigen diphtheria [id number] protein conjugate vaccine / Streptococcus pneumoniae serotype 18C capsular antigen d 0.5 mL, Route: IM, Drug Form: INJ, Daily, Start date: 09/18/17 12:00:00 REGISTERED NURSE CARDIAC, Duration: 1 doses or times, Stop date: 09/18/17 12:00:00 CSTNotes: Shake well prior to use (Same as: Prevnar 13) Inactive 09/18/2017 [facility] Furosemide 40 MG Oral Tablet 40 mg, 1 tab, Route: PO, Drug form: TAB, Daily, Dosing Weight 95.455, kg, Start date: 09/18/17 9:00:00 REGISTERED NURSE CARDIAC, Duration: 30 day, Stop date: 10/17/17 9:00:00 CSTNotes: (Same as: Lasix) May cause GI upset. Give with food or milk. No Longer Active 09/18/2017 [facility] clopidogrel 75 mg, 1 tab, Route: PO, Drug form: TAB, Daily, Dosing Weight 95.455, kg, Start date: 09/18/17 9:00:00 REGISTERED NURSE CARDIAC, Duration: 30 day, Stop date: 10/17/17 9:00:00 CSTNotes: (Same As: Plavix) No Longer Active 09/18/2017 [facility] Famotidine 20 MG Oral Tablet [Pepcid] 20 mg, 1 tab, Route: PO, Drug form: TAB, Daily, Dosing Weight 95.455, kg, Start date: 09/18/17 9:00:00 REGISTERED NURSE CARDIAC, Duration: 30 day, Stop date: 10/17/17 9:00:00 CSTNotes: (Same as: Pepcid) No Longer Active 09/18/2017 [facility] cefepime 1 gm, Route: IVPB, Q8H, Dosing Weight 95.455, kg, (CrCl >/=50 ml/min), Start date: 09/18/17 1:00:00 REGISTERED NURSE CARDIAC, Duration: 5 day, Stop date: 09/22/17 13:00:00 REGISTERED NURSE CARDIAC, ABX Indication: Urinary Tract InfectionNotes: (Same As: Maxipime) MEDICATION WASTE Product Size: 1000 mg Product Wasted: ___ mg No Longer Active 09/18/2017 [facility] Rocephin 1 gm, Route: IVP, [id number], Dosing Weight 95.455, kg, Start date: 09/17/17 22:00:00 REGISTERED NURSE CARDIAC, Duration: 5 day, Stop date: 09/21/17 22:00:00 REGISTERED NURSE CARDIAC, ABX Indication: Urinary Tract InfectionNotes: (Same As: Rocephin). Use with 100 mL NS and infuse over 30 min MEDICATION WASTE Product Size: 1000 mg Product Wasted: ___ mg Inactive 09/18/2017 [facility] carvedilol 6.25 mg, 2 tab, Route: PO, Drug form: TAB, BID, Dosing Weight 95.455, kg, Start date: 09/17/17 21:00:00 REGISTERED NURSE CARDIAC, Duration: 30 day, Stop date: 10/17/17 9:00:00 CSTNotes: Give with food. (Same As: Coreg) No Longer Active 09/18/2017 [facility] Simvastatin 10 mg, 1 tab, Route: PO, Drug form: TAB, Bedtime, Dosing Weight 95.455, kg, Start date: 09/17/17 21:00:00 REGISTERED NURSE CARDIAC, Duration: 30 day, Stop date: 10/16/17 21:00:00 CSTNotes: (Same as: Zocor) No Longer Active 09/18/2017 [facility] Ramipril 1.25 mg, 1 cap, Route: PO, Drug form: CAP, Bedtime, Dosing Weight 95.455, kg, Start date: 09/17/17 21:00:00 REGISTERED NURSE CARDIAC, Duration: 30 day, Stop date: 10/16/17 21:00:00 CSTNotes: (Same as:Altace) No Longer Active 09/18/2017 [facility] Aspirin Enteric Coated 81 mg, 1 tab, Route: PO, Drug form: ECTAB, Daily, Dosing Weight 95.455, kg, Start date: 09/17/17 18:00:00 REGISTERED NURSE CARDIAC, Duration: 30 day, Stop date: 10/17/17 9:00:00 CSTNotes: Do not crush or chew. (Same As: Ecotrin) No Longer Active 09/18/2017 [facility] Maxipime + sterile water 10 mL 1 gm, Route: IVP, ONCE, Start date: 09/17/17 17:38:00 REGISTERED NURSE CARDIAC, Stop date: 09/17/17 17:38:00 REGISTERED NURSE CARDIAC, ABX Indication: Urinary Tract InfectionNotes: (Same As: Maxipime) MEDICATION WASTE Product Size: 1000 mg Product Wasted: ___ mg Inactive 09/17/2017 [facility] oxybutynin 5 mg, 1 tab, Route: PO, Drug form: TAB, BID, Dosing Weight 95.455, kg, Start date: 09/17/17 17:00:00 REGISTERED NURSE CARDIAC, Duration: 30 day, Stop date: 10/17/17 9:00:00 CSTNotes: Same as: Ditropan) No Longer Active 09/17/2017 [facility] Lovenox 40 mg, 0.4 mL, Route: SUB-Q, Drug form: INJ, [id number], Dosing Weight 95.455, kg, Start date: 09/17/17 17:00:00 REGISTERED NURSE CARDIAC, Duration: 30 day, Stop date: 10/16/17 17:00:00 CSTNotes: (Same as: Lovenox) No Longer Active 09/17/2017 [facility] simvastatin 10 mg oral tablet 10 mg=1 tab, PO, Bedtime, 0 Refill(s) Active 09/17/2017 [facility] spironolactone 25 mg oral tablet 25 mg=1 tab, PO, Daily, 0 Refill(s) Active 09/17/2017 [facility] potassium chloride 10 mEq oral tablet, extended release 20 mEq=2 tab, PO, Daily, 0 Refill(s) Active 09/17/2017 [facility] ramipril 1.25 mg oral capsule 1.25 mg=1 cap, PO, Bedtime, 0 Refill(s) Active 09/17/2017 [facility] oxybutynin 5 mg oral tablet 5 mg=1 tab, PO, BID, 0 Refill(s) Active 09/17/2017 [facility] Furosemide 40 MG Oral Tablet 40 mg=1 tab, PO, Daily, 0 Refill(s) Active 09/17/2017 [facility] enalapril 10 mg oral tablet 10 mg=1 tab, PO, Daily, 0 Refill(s) Active 09/17/2017 [facility] Betamethasone 0.5 MG/ML / Clotrimazole 10 MG/ML Topical Cream 1 appl, TOP, BID, 0 Refill(s) Active 09/17/2017 [facility] clopidogrel 75 mg oral tablet 75 mg=1 tab, PO, Daily, 0 Refill(s) Active 09/17/2017 [facility] carvedilol 6.25 mg oral tablet 6.25 mg=1 tab, PO, BID, 0 Refill(s) Active 09/17/2017 [facility] Aspirin Enteric Coated 81 mg oral delayed release tablet 81 mg=1 tab, PO, Daily, 0 Refill(s) Active 09/17/2017 [facility] Ondansetron 4 mg, 2 mL, Route: IVP, Drug form: INJ, Q6H, Dosing Weight 95.455, kg, PRN Nausea & Vomiting, Start date: 09/17/17 7:01:00 REGISTERED NURSE CARDIAC, Duration: 30 day, Stop date: 10/17/17 7:00:00 CSTNotes: (Same as: Cammie) MEDICATION WASTE Product Size: 4 mg Product Wasted: ___ mg No Longer Active 09/17/2017 [facility] Acetaminophen 325 mg, 1 tab, Route: PO, Drug form: TAB, Q4H, Dosing Weight 95.455, kg, PRN Pain Score 4-6, Start date: 09/17/17 7:01:00 REGISTERED NURSE CARDIAC, Duration: 30 day, Stop date: 10/17/17 7:00:00 CSTNotes: Do not exceed 4 gm/day. (Same as: Tylenol) No Longer Active 09/17/2017 [facility] Acetaminophen 325 MG / Hydrocodone Bitartrate 5 MG Oral Tablet 1 tab, Route: PO, Drug Form: TAB, Dosing Weight 95.455, kg, Q4H, PRN Pain Score 4-6, Start date: 09/17/17 7:01:00 REGISTERED NURSE CARDIAC, Duration: 30 day, Stop date: 10/17/17 7:00:00 CSTNotes: (Same as: [place] 325/5) Do not exceed 4gm/day of acetaminophen. No Longer Active 09/17/2017 [facility] Sodium Chloride 0.9% (Bolus) IV 500 mL, 500 ml/hr, Infuse Over: 1 hr, Route: IV, 500, Drug form: INJ, ONCE, Priority: STAT, Dosing Weight 95.455 kg, Start date: 09/16/17 19:10:00 REGISTERED NURSE CARDIAC, Stop date: 09/16/17 19:10:00 REGISTERED NURSE CARDIAC Inactive 09/17/2017 [facility] Ceftriaxone 1 gm, Route: IVPB, ONCE, Dosing Weight 95.455, kg, Priority: STAT, Start date: 09/16/17 19:10:00 REGISTERED NURSE CARDIAC, Stop date: 09/16/17 19:10:00 REGISTERED NURSE CARDIAC, ABX Indication: Urinary Tract InfectionNotes: (Same As: Rocephin). Use with 100 mL NS and infuse over 30 min MEDICATION WASTE Product Size: 1000 mg Product Wasted: __0_ mg Inactive 09/17/2017 [facility] Allergies, Adverse Reactions, Alerts Substance Category Reaction Severity Reaction type Status Date Reported Comments Source azithromycin Assertion Drug allergy Active [facility] Immunizations Immunization Date Given Site Status Last Updated Comments Source influenza virus vaccine, inactivated 09/18/2017 Right deltoid completed [facility] pneumococcal 13-valent vaccine 09/18/2017 Left deltoid completed [facility] Results Order Name Results Value Reference Range Date Interpretation Comments Source ELECTROLYTES AGAP 12.8 meq/L 10.0 - 20.0 09/23/2017 [facility] ELECTROLYTES eGFR 58 mL/min/1.73m2 09/23/2017 Result Comment: The eGFR is calculated using the CKD-EPI formula. In most young, healthy individuals the eGFR will be >90 mL/min/1.73m2. The eGFR declines with age. An eGFR of 60-89 may be normal in some populations, particularly the elderly, for whom the CKD-EPI formula has not been extensively validated. Use of the eGFR is not recommended in the following populations: Individuals with unstable creatinine concentrations, including patients and those with serious co-morbid conditions. Patients with extremes in muscle mass or diet. The data above are obtained from the National Kidney Disease Education Program (NKDEP) which additionally recommends that when the eGFR is used in patients with extremes of body mass index for purposes of drug dosing, the eGFR should be multiplied by the estimated BMI. [facility] ELECTROLYTES CO2 32 meq/L 24 - 32 09/23/2017 [facility] ELECTROLYTES Glucose Lvl 174 mg/dL 70 - 99 09/23/2017 [facility] ELECTROLYTES Sodium Lvl 134 meq/L 135 - 145 09/23/2017 [facility] ELECTROLYTES Chloride Lvl 93 meq/L 95 - 109 09/23/2017 [facility] ELECTROLYTES Calcium Lvl 9.3 mg/dL 8.5 - 10.5 09/23/2017 [facility] ELECTROLYTES Potassium Lvl 3.8 meq/L 3.5 - 5.1 09/23/2017 [facility] ELECTROLYTES BUN 28 mg/dL 7 - 22 09/23/2017 [facility] ELECTROLYTES Creatinine Lvl 1.22 mg/dL 0.50 - 1.40 09/23/2017 [facility] HEMATOLOGY Platelet 382 K/CMM 133 - 450 09/23/2017 [facility] MCHC 32.2 g/dL 32.0 - 36.0 09/23/2017 [facility] MPV 7.8 fL 7.4 - 10.4 09/23/2017 [facility] RDW 15.9 % 11.5 - 14.5 09/23/2017 [facility] Hct 49.8 % 42.0 - 54.0 09/23/2017 [facility] MCH 26.7 pg 27.0 - 31.0 09/23/2017 [facility] MCV 83.1 fL 80.0 - 94.0 09/23/2017 [facility] Hgb 16.0 g/dL 14.0 - 18.0 09/23/2017 [facility] WBC 12.6 K/CMM 3.7 - 10.4 09/23/2017 [facility] RBC 6.00 M/CMM 4.70 - 6.10 09/23/2017 [facility] AGAP 14.7 meq/L 10.0 - 20.0 09/22/2017 [facility] eGFR 73 mL/min/1.73m2 09/22/2017 Result Comment: The eGFR is calculated using the CKD-EPI formula. In most young, healthy individuals the eGFR will be >90 mL/min/1.73m2. The eGFR declines with age. An eGFR of 60-89 may be normal in some populations, particularly the elderly, for whom the CKD-EPI formula has not been extensively validated. Use of the eGFR is not recommended in the following populations: Individuals with unstable creatinine concentrations, including patients and those with serious co-morbid conditions. Patients with extremes in muscle mass or diet. The data above are obtained from the National Kidney Disease Education Program (NKDEP) which additionally recommends that when the eGFR is used in patients with extremes of body mass index for purposes of drug dosing, the eGFR should be multiplied by the estimated BMI. [facility] ELECTROLYTES Chloride Lvl 94 meq/L 95 - 109 09/22/2017 [facility] ELECTROLYTES Potassium Lvl 3.7 meq/L 3.5 - 5.1 09/22/2017 [facility] ELECTROLYTES Sodium Lvl 134 meq/L 135 - 145 09/22/2017 [facility] ELECTROLYTES Creatinine Lvl 1.02 mg/dL 0.50 - 1.40 09/22/2017 [facility] ELECTROLYTES BUN 25 mg/dL 7 - 22 09/22/2017 [facility] ELECTROLYTES Calcium Lvl 9.5 mg/dL 8.5 - 10.5 09/22/2017 [facility] ELECTROLYTES CO2 29 meq/L 24 - 32 09/22/2017 [facility] ELECTROLYTES Glucose Lvl 116 mg/dL 70 - 99 09/22/2017 [facility] HEMATOLOGY Platelet 386 K/CMM 133 - 450 09/22/2017 [facility] HEMATOLOGY MPV 7.7 fL 7.4 - 10.4 09/22/2017 [facility] HEMATOLOGY RDW 16.2 % 11.5 - 14.5 09/22/2017 [facility] HEMATOLOGY MCHC 32.9 g/dL 32.0 - 36.0 09/22/2017 [facility] HEMATOLOGY MCH 27.3 pg 27.0 - 31.0 09/22/2017 [facility] HEMATOLOGY MCV 83.0 fL 80.0 - 94.0 09/22/2017 [facility] HEMATOLOGY Hct 48.2 % 42.0 - 54.0 09/22/2017 [facility] HEMATOLOGY Hgb 15.9 g/dL 14.0 - 18.0 09/22/2017 [facility] HEMATOLOGY RBC 5.81 M/CMM 4.70 - 6.10 09/22/2017 [facility] WBC 11.3 K/CMM 3.7 - 10.4 09/22/2017 [facility] CHEM PANEL A/G Ratio 0.8 0.7 - 1.6 09/21/2017 [facility] CHEM PANEL Bili Indirect 0.6 mg/dL 0.0 - 1.0 09/21/2017 [facility] CHEM PANEL Bili Direct 0.3 mg/dL 0.0 - 0.3 09/21/2017 [facility] CHEM PANEL Globulin 4.2 g/dL 2.7 - 4.2 09/21/2017 [facility] CHEM PANEL ALT 27 unit/L 0 - 65 09/21/2017 [facility] CHEM PANEL Alk Phos 185 unit/L 39 - 136 09/21/2017 [facility] CHEM PANEL AST 18 unit/L 0 - 37 09/21/2017 [facility] CHEM PANEL Total Protein 7.5 g/dL 6.4 - 8.4 09/21/2017 [facility] CHEM PANEL Albumin Lvl 3.3 g/dL 3.5 - 5.0 09/21/2017 [facility] CHEM PANEL Bili Total 0.9 mg/dL 0.2 - 1.3 09/21/2017 [facility] CHEM PANEL Magnesium Lvl 2.2 mg/dL 1.8 - 2.4 09/21/2017 [facility] ELECTROLYTES AGAP 14.4 meq/L 10.0 - 20.0 09/21/2017 [facility] ELECTROLYTES CO2 31 meq/L 24 - 32 09/21/2017 [facility] ELECTROLYTES Calcium Lvl 9.2 mg/dL 8.5 - 10.5 09/21/2017 [facility] ELECTROLYTES eGFR 71 mL/min/1.73m2 09/21/2017 Result Comment: The eGFR is calculated using the CKD-EPI formula. In most young, healthy individuals the eGFR will be >90 mL/min/1.73m2. The eGFR declines with age. An eGFR of 60-89 may be normal in some populations, particularly the elderly, for whom the CKD-EPI formula has not been extensively validated. Use of the eGFR is not recommended in the following populations: Individuals with unstable creatinine concentrations, including patients and those with serious co-morbid conditions. Patients with extremes in muscle mass or diet. The data above are obtained from the National Kidney Disease Education Program (NKDEP) which additionally recommends that when the eGFR is used in patients with extremes of body mass index for purposes of drug dosing, the eGFR should be multiplied by the estimated BMI. [facility] ELECTROLYTES Potassium Lvl 3.4 meq/L 3.5 - 5.1 09/21/2017 [facility] ELECTROLYTES Chloride Lvl 92 meq/L 95 - 109 09/21/2017 [facility] ELECTROLYTES Sodium Lvl 134 meq/L 135 - 145 09/21/2017 [facility] ELECTROLYTES Creatinine Lvl 1.04 mg/dL 0.50 - 1.40 09/21/2017 [facility] ELECTROLYTES BUN 20 mg/dL 7 - 22 09/21/2017 [facility] ELECTROLYTES Glucose Lvl 127 mg/dL 70 - 99 09/21/2017 [facility] CARDIAC ENZYMES BNP 582 pg/mL <=100 pg/mL 09/20/2017 [facility] CHEM PANEL Uric Acid 4.4 mg/dL 3.8 - 8.0 09/20/2017 [facility] CHEM PANEL Vitamin D, 25-OH, Total 36.3 ng/mL 30.0 - 100.0 09/20/2017 [facility] CHEM PANEL Phosphorus 3.7 mg/dL 2.5 - 4.5 09/20/2017 [facility] HEMATOLOGY Sed Rate 19 mm/h 0 - 15 09/20/2017 [facility] IMMUNOLOGY Homocyst Tot 11.6 umol/L 3.7 - 13.9 09/20/2017 [facility] IMMUNOLOGY Prealbumin 17.2 mg/dL 18.0 - 45.0 09/20/2017 [facility] LIPIDS LDL (Calculated) 81 mg/dL <=99 mg/dL 09/20/2017 [facility] LIPIDS VLDL 43 09/20/2017 [facility] LIPIDS Trig 215 mg/dL <=149 mg/dL 09/20/2017 [facility] LIPIDS HDL 25 mg/dL >=61 mg/dL 09/20/2017 [facility] LIPIDS Chol 149 mg/dL <=199 mg/dL 09/20/2017 [facility] LIPIDS CHD Risk 5.96 4.00 - 7.30 09/20/2017 [facility] SPECIAL CHEMISTRY Hgb A1C 7.1 % <=5.6 % 09/20/2017 [facility] CHEM PANEL Magnesium Lvl 2.3 mg/dL 1.8 - 2.4 09/20/2017 [facility] Hct 46.2 % 42.0 - 54.0 09/20/2017 [facility] MCV 83.0 fL 80.0 - 94.0 09/20/2017 [facility] Hgb 15.3 g/dL 14.0 - 18.0 09/20/2017 [facility] WBC 8.2 K/CMM 3.7 - 10.4 09/20/2017 [facility] RBC 5.56 M/CMM 4.70 - 6.10 09/20/2017 [facility] MPV 8.0 fL 7.4 - 10.4 09/20/2017 [facility] MCH 27.6 pg 27.0 - 31.0 09/20/2017 [facility] MCHC 33.2 g/dL 32.0 - 36.0 09/20/2017 [facility] RDW 16.0 % 11.5 - 14.5 09/20/2017 [facility] Platelet 317 K/CMM 133 - 450 09/20/2017 [facility] Abdomen/Pelvis w/wo IV contrast CT Abdomen/Pelvis w/wo IV contrast CT Patient Name: DELMIS CORREA : 1945; Age: 72 years y/o Male MR: [id number] Study: Abdomen/Pelvis w/wo IV contrast CT 09/18/2017 6:50 PM REGISTERED NURSE CARDIAC Ordering Physician: Joni Menendez MD Clinical Indication: - bladder mass on prior CT; Comparison: CT abdomen 01/05/2017 TECHNIQUE: Helical imaging was performed from the diaphragm through the symphysis with multiplanar reformations obtained before and after intravenous administration of 100 mL of Omnipaque. Total exam DLP 3438 mGy cm FINDINGS: LOWER CHEST: Trace left pleural effusion. Mild dependent atelectasis. Generous cardiomegaly. SOLID ORGANS: No focal liver or splenic abnormality. The adrenals, pancreas are unremarkable. Septated gallbladder fundus, phrygian cap variant. No biliary ductal dilatation. Findings no urinary tract obstruction or calculus. Right kidney normal. Left renal lower pole 18 mm cortical cyst. No solid renal lesion. RETROPERITONEUM: No abdominal or pelvic adenopathy. The abdominal aorta is unremarkable. PELVIS: No pelvic mass. Suarez catheter is present within the urinary bladder. Diffuse urinary bladder wall thickening suggesting underlying cystitis. Correlate clinically. Moderately large prostate. No other pelvic mass. BOWEL: No bowel abnormality identified in the abdomen or pelvis. The appendix is unremarkable. PERITONEUM: No free intraperitoneal air. No abnormal fluid collection identified in the abdomen or pelvis. Large left inguinal hernia containing fat, no included bowel. MUSCULOSKELETAL: No significant osseous abnormality. IMPRESSION: No bladder or pelvic mass appreciated. Suarez catheter is present in the urinary bladder. There is diffuse urinary bladder wall thickening suggesting cystitis. Correlate clinically. No urinary tract obstruction or calculus or mass otherwise. No other significant/acute abdominal or pelvic findings. SL: [id number] 09/19/2017 - - Read by: Nino Prince MD Dictated Date/time: 09/19/17 15:05 Electronically Signed by: Nino Prince MD 09/19/17 15:16 FINAL REPORT [facility] Scrotal/Testicle w Doppler US Scrotal/Testicle w Doppler US Patient Name: DELMIS CORREA : 1945; Age: 72 years y/o Male MR: [id number] Study: Scrotal/Testicle w Doppler US 09/18/2017 6:50 PM REGISTERED NURSE CARDIAC Ordering Physician: Clinical Indication: - Scrotal swelling; Comparison: None There is bilateral scrotal skin thickening which appears relatively symmetric on both sides. Right testicle 3.4 x 2.0 x 3.0 cm appearing normal. Right epididymis contains a 0.8 x 1.3 cm simple cyst at the epididymal head. Epididymis is otherwise normal. Small right hydrocele. Right varicocele. Normal arterial and venous vascular flow is seen within the testicular parenchyma on spectral Doppler imaging. Left testicle 4.9 x 2.9 x 2.7 cm appearing normal. Left epididymis normal. Left varicocele. No hydrocele. Normal arterial and venous vascular flow seen within the testicular parenchyma on spectral Doppler imaging. IMPRESSION: Nonspecific scrotal skin thickening. No acute testicular or epididymal abnormality is seen. Incidental 8 x 13 mm right epididymal cyst. Bilateral scrotal varicocele. SL: [id number] 09/18/2017 - - Read by: Nino Prince MD Dictated Date/time: 09/19/17 08:24 Electronically Signed by: Nino Prince MD 09/19/17 08:27 FINAL REPORT [facility] Abdomen RUQ Abdomen RUQ US Abdomen RUQ US 72 years /o Male Clinical Indication: - evaluate liver; history of cirrhosis. Comparison: None TECHNIQUE: Grayscale and limited color sonographic evaluation of the right upper quadrant of the abdomen and gallbladder region was performed with standard technique. FINDINGS: LIVER: The visualized liver shows normal contour with coarsening of the echotexture of the liver in a fashion suspicious for hepatitis/cirrhosis or perhaps fatty infiltration. The liver is slightly enlarged, measuring 16.9 cm in length. BILE DUCTS: The intrahepatic and extrahepatic bile ducts are not dilated with the common bile duct measuring 5 mm. The distal common bile duct is not well seen. GALLBLADDER: The gallbladder is mildly distended with slightly thickened appearance of the gallbladder wall, but no evidence of gallstones. Gallbladder edema may be related to liver disease. No evidence of tenderness over the gallbladder during exam. Phrygian cap at gallbladder fundus. PANCREAS: The visualized pancreas appears unremarkable. KIDNEY: The right kidney measures 12.9 x 5.9 x 5.9 cm. There is normal renal contour and morphology, with normal parenchymal echotexture. There is no hydronephrosis. AORTA AND INFERIOR VENA CAVA: Visualized portions appear unremarkable. ASCITES: There is no right upper quadrant abdominal ascites. IMPRESSION: 1. Mildly enlarged liver with coarsened echotexture. This finding can be seen with fatty infiltration, hepatitis or cirrhosis. 2. Mildly thickened wall the gallbladder may be due to liver disease. 3. Otherwise unremarkable right upper quadrant ultrasound. SL: ANDRE-DORA 09/18/2017 - - Read by: Ced Renae MD Dictated Date/time: 09/18/17 16:21 Electronically Signed by: Ced Renae MD 09/18/17 16:26 FINAL REPORT [facility] HEMATOLOGY Basophils 1.3 % 0.0 - 1.0 09/18/2017 [facility] HEMATOLOGY Segs-Bands # 6.6 K/CMM 1.5 - 8.1 09/18/2017 [facility] HEMATOLOGY Monocytes 12.0 % 2.0 - 12.0 09/18/2017 [facility] HEMATOLOGY Eosinophils 8.4 % 0.0 - 4.0 09/18/2017 [facility] HEMATOLOGY Eosinophils # 0.9 K/CMM 0.0 - 0.5 09/18/2017 [facility] HEMATOLOGY Basophils # 0.1 K/CMM 0.0 - 0.2 09/18/2017 [facility] HEMATOLOGY Lymphocytes 14.7 % 20.0 - 40.0 09/18/2017 [facility] HEMATOLOGY Segs 63.6 % 45.0 - 75.0 09/18/2017 [facility] HEMATOLOGY Monocytes # 1.2 K/CMM 0.0 - 0.8 09/18/2017 [facility] HEMATOLOGY Lymphocytes # 1.5 K/CMM 1.0 - 5.5 09/18/2017 [facility] CHEM PANEL Ammonia 23.0 umol/L <=45.0 uMol/L 09/16/2017 [facility] URINE AND STOOL UA Sq Epi None Seen 09/16/2017 [facility] URINE AND STOOL UA Mucus Few /LPF None Seen /LPF 09/16/2017 [facility] URINE AND STOOL UA Blood Small *ABN* (09/16/17 5:53 PM) Negative 09/16/2017 [facility] URINE AND STOOL UA Urobilinogen 4.0 mg/dL 0.1 - 1.0 09/16/2017 [facility] URINE AND STOOL UA Leuk Est Moderate *ABN* (09/16/17 5:53 PM) Negative 09/16/2017 [facility] URINE AND STOOL UA WBC null 0 - 5 09/16/2017 [facility] URINE AND STOOL UA Nitrite Positive *ABN* (09/16/17 5:53 PM) Negative 09/16/2017 [facility] URINE AND STOOL UA RBC 124 /HPF 0 - 2 09/16/2017 [facility] URINE AND STOOL UA pH 7.0 5.0 - 8.0 09/16/2017 [facility] URINE AND STOOL UA Ketones Negative mg/dL Negative mg/dL 09/16/2017 [facility] URINE AND STOOL UA Glucose Negative mg/dL Negative mg/dL 09/16/2017 [facility] URINE AND STOOL UA Protein 100 mg/dL Negative mg/dL 09/16/2017 [facility] URINE AND STOOL UA Bili Negative *NA* (09/16/17 5:53 PM) Negative 09/16/2017 [facility] URINE AND STOOL UA Turbidity Marked *ABN* (09/16/17 5:53 PM) Clear 09/16/2017 [facility] URINE AND STOOL UA Color Yellow *NA* (09/16/17 5:53 PM) Yellow 09/16/2017 [facility] URINE AND STOOL UA Spec Grav 1.021 <=1.030 09/16/2017 [facility] CARDIAC ENZYMES CK MB Index null 0.0 - 2.5 09/16/2017 [facility] CARDIAC ENZYMES Total CK 39 unit/L 12 - 191 09/16/2017 [facility] CARDIAC ENZYMES CK MB null 0.5 - 3.6 09/16/2017 [facility] CARDIAC ENZYMES Troponin-I 0.02 ng/mL 0.00 - 0.40 09/16/2017 [facility] CHEM PANEL ALT 15 unit/L 0 - 65 09/16/2017 [facility] CHEM PANEL AST 12 unit/L 0 - 37 09/16/2017 [facility] CHEM PANEL A/G Ratio 0.8 0.7 - 1.6 09/16/2017 [facility] CHEM PANEL Globulin 3.8 g/dL 2.7 - 4.2 09/16/2017 [facility] CHEM PANEL B/C Ratio 15 6 - 25 09/16/2017 [facility] CHEM PANEL Albumin Lvl 3.1 g/dL 3.5 - 5.0 09/16/2017 [facility] CHEM PANEL Total Protein 6.9 g/dL 6.4 - 8.4 09/16/2017 [facility] CHEM PANEL Bili Total 1.2 mg/dL 0.2 - 1.3 09/16/2017 [facility] CHEM PANEL Alk Phos 149 unit/L 39 - 136 09/16/2017 [facility] Basophils # 0.1 K/CMM 0.0 - 0.2 09/16/2017 [facility] Lymphocytes # 1.7 K/CMM 1.0 - 5.5 09/16/2017 [facility] Eosinophils # 0.3 K/CMM 0.0 - 0.5 09/16/2017 [facility] Segs-Bands # 11.7 K/CMM 1.5 - 8.1 09/16/2017 [facility] Monocytes # 2.5 K/CMM 0.0 - 0.8 09/16/2017 [facility] Eosinophils 1.8 % 0.0 - 4.0 09/16/2017 [facility] Monocytes 15.2 % 2.0 - 12.0 09/16/2017 [facility] Basophils 0.4 % 0.0 - 1.0 09/16/2017 [facility] Segs 72.1 % 45.0 - 75.0 09/16/2017 [facility] Lymphocytes 10.5 % 20.0 - 40.0 09/16/2017 [facility] PTT 32.0 s 22.9 - 35.8 09/16/2017 [facility] INR 1.16 0.85 - 1.17 09/16/2017 [facility] PT 14.9 s 12.0 - 14.7 09/16/2017 [facility] Chest 1view DX Chest 1view DX Clinical Indication: Is post fall today; Comparison: January 05, 2017 FINDINGS: AP chest radiographs shows normal lung volumes without interstitial or airspace opacities, pleural effusions or pneumothorax. The heart is moderately enlarged. There is no pulmonary vascular congestion. The trachea is midline. There are no clinically significant osseous abnormalities noted. There are sternal wires in stable position. IMPRESSION: 1. Cardiomegaly without evidence of heart failure. 2. No focal infiltrates. SL: WR1-M 09/16/2017 - - Read by: Ulisses Freeman MD Dictated Date/time: 09/16/17 19:14 Electronically Signed by: Ulisses Freeman MD 09/16/17 19:15 FINAL REPORT [facility] Brain wo contrast CT Brain wo contrast CT Clinical Indication: fall yesterday, altered, on blood thinners; Comparison: None TECHNIQUE: CT images were obtained from the foramen magnum to the vertex without the use of intravenous contrast on a multidetector CT. Coronal and sagittal reconstructions were obtained. CT radiation dose DLP: 1023.76 mGy-cm FINDINGS: BRAIN PARENCHYMA: There is generalized brain parenchymal atrophy related to the patient's age. Moderate nonspecific periventricular white matter disease changes are noted. Atherosclerotic calcifications are present within the carotid siphons and distal vertebral arteries. There are no focal mass lesions on this noncontrast head CT. There is no mass effect, midline shift or edema. There are no intra-axial or extra-axial fluid collections, intraventricular or intraparenchymal hemorrhage. There is no noncontrast CT evidence of a subacute stroke. The pineal, sellar, brainstem, cerebellum and skull base regions appear unremarkable. VENTRICLES: The lateral ventricles, third and fourth ventricles appear unremarkable. The basilar cisterns are normal. ORBITS, MASTOIDS AND PARANASAL SINUSES: The visualized orbits and paranasal sinuses are unremarkable. The mastoid air cells are clear. SKULL: There are no calvarial abnormalities seen. If there is further concern for intracranial pathology or acute stroke, MRI of the brain may be performed for complete assessment. IMPRESSION: Chronic age-related and small vessel ischemic changes without mass, hemorrhage or subacute stroke. SL: WR1-M 09/16/2017 - - Read by: Ulisses Freeman MD Dictated Date/time: 09/16/17 17:41 Electronically Signed by: Ulisses Freeman MD 09/16/17 17:44 FINAL REPORT [facility] Spine cervical wo contrast CT Spine cervical wo contrast CT Clinical Indication: Trauma; Comparison: None Technique: Multi-detector CT imaging of the cervical spine is performed. Coronal and sagittal reconstructions were obtained. CT Radiation Dose DLP 736 mGy-cm FINDINGS: ALIGNMENT AND GENERAL ASSESSMENT: There is normal alignment of the cervical spine. There are no acute fractures or subluxations. The craniocervical junction is normal. The atlanto-dental alignment appears unremarkable. The posterior elements and spinous processes are unremarkable. The facet joint, spinolaminar and spinous process alignment are normal. DISK SPACES AND SOFT TISSUES: The prevertebral soft tissues are normal. There are multilevel degenerative changes throughout the cervical spine with anterior and posterior osteophytes, disk bulges as well as bilateral uncovertebral and facet hypertrophy. There is left neural foraminal stenosis identified at the C5-6 level.. MRI is the gold standard to assess for disk disease. VISUALIZED LUNG APICES: Unremarkable. CT myelogram or MRI of the cervical spine may be performed, if there is further concern. IMPRESSION: Degenerative changes within the cervical spine without acute fractures or subluxations. SHAUN: WR1-M 09/16/2017 - - Read by: Ulisses Freeman MD Dictated Date/time: 09/16/17 17:44 Electronically Signed by: Ulisses Freeman MD 09/16/17 17:46 FINAL REPORT [facility] Abdomen wo IV contrast CT Abdomen wo IV contrast CT EXAM: CT ABDOMEN WITHOUT CONTRAST DATE: 01/05/2017 8:59 AM CDT INDICATION: K43.9 Ventral hernia without obstruction or gangrene ADDITIONAL INFORMATION: None. COMPARISON: None. TECHNIQUE: Volumetric CT acquisition of the abdomen and pelvis without the intravenous administration contrast. Axial, coronal and sagittal reconstructions. Oral contrast: Omnipaque CT Radiation Dose DLP 587 mGy-cm AEC, mA/kV adjustment by patient size, and/or iterative reconstruction technique were used, per departmental dose-optimization program. FINDINGS: Lines and tubes: None. Lower thorax: Mild atelectatic changes Evaluation of the solid organs is limited by lack of intravenous contrast. Liver and biliary tree: Mildly atrophic. Mild periportal edema. Gallbladder: Questionable phrygian cap. No CT evidence of gallstones. Pancreas: Normal. Spleen: Normal. Adrenals: Normal. Kidneys and ureters: Right kidney is somewhat inferiorly displaced. Small left renal cyst. Nonspecific perinephric stranding. Bladder: Questionable 3.2 x 5.0 cm soft tissue density structure projecting off the bladder dome, incompletely evaluated Gastrointestinal tract: Unremarkable with normal caliber. Peritoneum and retroperitoneum: Trace perihepatic ascites Lymph nodes: No pathologic adenopathy. Vasculature: Scattered vascular calcifications. Bones: No acute abnormality. Soft tissues: Moderate thinning and stretching of the anterior abdominal wall musculature. No focal defects. IMPRESSION: 1. No ventral hernia. 2. Trace perihepatic ascites. 3. Questionable phrygian cap of the gallbladder, not well evaluated. 4. Questionable soft tissue mass projecting off the dome of the bladder, partially visualized. A nonemergent contrast-enhanced study of the abdomen and pelvis is recommended. SL: [id number] 01/05/2017 - - Read by: Eric Richard Dictated Date/time: 01/05/17 11:56 Electronically Signed by: Eric Richard 01/05/17 12:08 FINAL REPORT [facility] Chest 2 views DX Chest 2 views DX EXAM: Chest 2 views DX HISTORY: mild edema; pleural effusion; cardiomegaly COMPARISON: 11/30/2016 Cardiomegaly. Mild interstitial edema. Small pleural fluid bilaterally. No pneumothorax or focal consolidation. IMPRESSION: Mild edema and small stable effusions. No significant change. 01/05/2017 - - Read by: Carlitos Burton MD Dictated Date/time: 01/05/17 10:39 Electronically Signed by: Carlitos Burton MD 01/05/17 10:41 FINAL REPORT [facility] Chest 2 views DX Chest 2 views DX EXAM: Chest 2 views DX HISTORY: congestive heart failure COMPARISON: 11/24/2016 Cardiomegaly. Mild interstitial edema. Small pleural fluid bilaterally. No pneumothorax or focal consolidation. IMPRESSION: Mild edema and small effusions. No significant change. 11/30/2016 - - Read by: Carlitos Burton MD Dictated Date/time: 11/30/16 10:29 Electronically Signed by: Carlitos Burton MD 11/30/16 10:30 FINAL REPORT [facility] Chest 2 views DX Chest 2 views DX EXAM: Chest 2 views DX HISTORY: congestive heart failure COMPARISON: 10/23/2016 Cardiomegaly with mild vascular congestion. Small right effusion. No focal consolidation or pneumothorax. Mild discogenic degenerative changes are noted. IMPRESSION: Cardiomegaly and mild vascular congestion. 11/24/2016 - - Read by: Carlitos Burton MD Dictated Date/time: 11/24/16 14:00 Electronically Signed by: Carlitos Burton MD 11/24/16 14:01 FINAL REPORT [facility] Chest 2 views DX Chest 2 views DX Exam: Two-view chest x-ray Reason for Exam: chest pain, cough wheezing sob Comparison Exam: None Discussion: Cardiac silhouette is enlarged. Mild central vascular congestion. Small bilateral pleural effusions, right greater than left. No focal lung consolidations. No appreciable evidence seen for pneumothorax. No acute bony abnormalities. Impression: 1. Cardiac silhouette is enlarged. Mild central vascular congestion. Small bilateral pleural effusions, right greater than left. 10/23/2016 - - Read by: Cj Arreola MD Dictated Date/time: 10/23/16 16:47 Electronically Signed by: Cj Arreola MD 10/23/16 16:51 FINAL REPORT [facility] Vital Signs Vital Sign Value Date Comments Source Systolic (mm Hg) 109 09/23/2017 [facility] Diastolic (mm Hg) 63 09/23/2017 [facility] Temperature Oral (F) 97.9 F 09/23/2017 [facility] Respitory Rate 16 09/23/2017 [facility] Heart Rate 61 09/23/2017 [facility] Systolic (mm Hg) 108 09/23/2017 [facility] Diastolic (mm Hg) 73 09/23/2017 [facility] Respitory Rate 16 09/23/2017 [facility] Heart Rate 60 09/23/2017 [facility] Temperature Oral (F) 98.6 F 09/23/2017 [facility] Systolic (mm Hg) 102 09/23/2017 [facility] Diastolic (mm Hg) 59 09/23/2017 [facility] Heart Rate 74 09/23/2017 [facility] Respitory Rate 16 09/23/2017 [facility] Temperature Oral (F) 98.5 F 09/23/2017 [facility] BMI Calculated 26.62 09/18/2017 [facility] Height 180.34 cm 09/18/2017 [facility] Weight 86.563 09/18/2017 [facility] BMI Calculated 29.35 09/16/2017 [facility] Weight 95.455 09/16/2017 [facility] Height 180.34 cm 09/16/2017 [facility] Encounters Location Location Details Encounter Type Encounter Number Reason For Visit Attending Provider ADM Date DC Date Status Source [facility] [id number] Adán Amador 10/23/2016 10/24/2016 [facility] [place] [id number] Adán Amador 11/24/2016 11/25/2016 [facility] [place] [facility] [id number] Adán Amador 11/30/2016 12/01/2016 [facility] [place] [facility] [id number] Adán Amador 01/05/2017 01/06/2017 [facility] Inpatient [id number] Ovidio Dahu 09/16/2017 09/24/2017 [facility] Procedures Procedure Code Date Perfomer Comments Source Cataract surgery [id number] [facility] Primary repair of inguinal hernia [id number] [facility] Triple coronary bypass [id number] [facility]
--- NOTE | 2018-06-21 14:07 | Consultation ---
DATE OF CONSULTATION: REQUESTING PHYSICIAN: Dr. Josue. REASON FOR CONSULTATION: CHF. HISTORY OF PRESENT ILLNESS: Mr. Herzog is a 73-year-old gentleman with past medical history as listed below, initially presented to the office last week with worsening leg swelling and shortness of breath. Patient also could barely walk. He was sent to the hospital for admission for optimization of his source of diuresis and treatment of the CHF. Patient denies any chest pain or palpitations. Does get short winded. Patient was diuresed and his leg swelling has decreased considerably. He states he hurts all over and is weak. His leg swelling has decreased. REVIEW OF SYSTEMS CONSTITUTIONAL: Has some fatigue and weakness. HEENT: No headache, blurring of vision, seizure, or syncope. CARDIOVASCULAR: No chest pain. Has dyspnea and has leg edema. RESPIRATORY: No cough, fever, or expectoration. GI: No abdominal pain, vomiting, or diarrhea. ALLERGIES: AZITHROMYCIN. MEDICATIONS: See list. PAST MEDICAL HISTORY: History of CHF, history of generalized weakness. History of CAD and CABG , history of hypertension. SOCIAL HISTORY: Does not smoke or drink. His takes care of him. FAMILY HISTORY: Noncontributory. PHYSICAL EXAMINATION GENERAL: Moderately built and nourished gentleman, awake, alert, and not in any obvious distress. VITALS: Heart rate is 80, blood pressure 127/72, respiratory rate is 18. HEENT: Atraumatic. NECK: No JVD, bruit, thyromegaly, or lymphadenopathy. CARDIOVASCULAR: First and second heart sounds heard. A 2/6 systolic murmur heard at the left sternal border. CHEST: Decreased air entry at the bases. No adventitious sounds appreciated. ABDOMEN: Soft and nontender. EXTREMITIES: Trace edema. LABS: WBC is 9.8, hemoglobin is 14, hematocrit is 43.8, platelets are 232. Sodium is 140, potassium is 3.1, chloride is 99, BUN is 14, creatinine 1.4, glucose is 124. Troponins are normal. EKG shows sinus rhythm at 97 beats per minute, normal axis, PVCs, right bundle branch block with secondary ST-T changes, anteroseptal infarct age undetermined. BNP is 2497. IMPRESSION 1. Congestive heart failure, [id number], systolic. 2. History of coronary artery disease and coronary artery bypass grafting. 3. Hypertension. 4. Arthritis. 5. Renal insufficiency. PLAN 1. Patient's edema has decreased considerably. He is currently on a Lasix drip. Continue with the same. 2. Replace potassium. 3. Continue with aspirin. 4. Start beta blockers. 5. Low dose ALFREDA inhibitors. 6. I's and O's, fluid restriction. 7. Further cardiac workup depending on clinical course. As always, I appreciate and thank you very much for your referrals. Job#: [id number] HAYES
[2018-06-21] MEDS: ENOXAPARIN SOD INJ 40 MG/0.4 ML SYR SC SCH (17:10)
[2018-06-22] VITALS: BP 123/76
[2018-06-22 04:00] VITALS: BP 111/65
[2018-06-22 05:58] LABS: BASOPHILS # (AUTO) 0.1 (0.0-0.1); BASOPHILS % 0.9 % (0.0-1.0); EOSINOPHILS # (AUTO) 1.8 (0.0-0.4); EOSINOPHILS % 18.2 % (0.0-6.0); HEMOGLOBIN 14.8 g/dL (14.0-18.0); LYMPHOCYTES # (AUTO) 1.6 (1.0-3.2); LYMPHOCYTES % 16.1 % (18.0-39.1); MEAN CORPUSCULAR HEMOGLOBIN 27.8 pg (28-32); MEAN CORPUSCULAR HGB CONC 32.2 g/dL (31-35); MEAN CORPUSCULAR VOLUME 86.5 fL (81-99); MONOCYTES # (AUTO) 1.2 (0.2-0.8); MONOCYTES % 12.2 % (4.4-11.3); NEUTROPHILS # (AUTO) 5.2 (2.1-6.9); NEUTROPHILS % 52.1 % (38.7-80.0); PLATELET COUNT 344 x10e3/uL (140-360); RED BLOOD COUNT 5.32 x10e6/uL (4.3-5.7); RED CELL DISTRIBUTION WIDTH 16.1 % (11.7-14.4)
[2018-06-22 06:19] LABS: ANION GAP 18.4 mmol/L (8-16); CALCIUM 10.1 mg/dL (8.4-10.2); CREATININE, SERUM 1.3 mg/dL (0.72-1.25); POTASSIUM 3.4 mmol/L (3.5-5.1)
[2018-06-22 07:09] LABS: EOSINOPHILS % (MANUAL) 13 % (0-7); LYMPHOCYTES % (MANUAL) 10 % (19-48); MONOCYTES % (MANUAL) 5 % (3.4-9.0); NEUTROPHILS % (MANUAL) 58 % (40-74)
[2018-06-22 07:10] LABS: OVALOCYTES FEW; PLATELET ESTIMATE ADEQUATE; PLATELET MORPHOLOGY COMMENT NORMAL; RBC MORPHOLOGY COMMENT NORMAL
[2018-06-22 07:11] LABS: ANISOCYTOSIS SLIGHT
[2018-06-22 07:25] VITALS: BP 111/65
[2018-06-22 07:33] VITALS: BP 140/81
[2018-06-22] MEDS: BALSAM PERU/CASTOR OIL 60 GM OINT...G. TP SCH (08:30)
[2018-06-22] MEDS: CLOPIDOGREL BISULFATE 75 MG TAB PO SCH (09:00)
[2018-06-22] MEDS ORDERED: LISINOPRIL 2.5 MG TAB PO SCH (09:00)
[2018-06-22] MEDS: POTASSIUM CHLORIDE 20 MEQ TAB CR PO SCH (09:00)
[2018-06-22] MEDS: ASPIRIN 81 MG CHEW TAB PO SCH (09:00)
[2018-06-22] MEDS ORDERED: METOPROLOL SUCCINATE 25 MG TAB XL PO SCH (09:00)
[2018-06-22] MEDS: DOXYCYCLINE HYCLATE TABLET 100 MG TAB PO SCH (09:00)
[2018-06-22] MEDS ORDERED: POTASSIUM CHLORIDE 20 MEQ TAB CR PO ONE (10:30)
[2018-06-22 11:39] VITALS: BP 107/66
--- NOTE | 2018-06-22 15:40 | Discharge Summary ---
DISCHARGE DIAGNOSES 1. Acute exacerbation of congestive heart failure with systolic and diastolic dysfunction. 2. Bilateral lower extremity cellulitis from a recent fall. 3. Medical noncompliance. 4. Fall due to medical debilitation which is chronic. 5. Hypertension. 6. Morbid obesity. 7. Scrotal swelling, improving. CONSULTANTS: We had Cardiology. VITAL SIGNS: Temperature is 97.2, pulse is 78, respiratory rate is 20, blood pressure 140/81. LAB FINDINGS: Show white count 9.9, hemoglobin 14.8, hematocrit is 46, platelets of 344. Coagulation: PT 14.7, INR 1, PTT 31. Chemistry: Sodium 140, potassium 3.4, chloride 102, bicarb is 23, anion gap of 18, BUN is 19, creatinine is 1.3. His glucose is 109. Calcium is 10.1. His total bilirubin was 2.1, AST 8, ALT 7, alk phos 92. His troponin was 0.021, all negative. Albumin 3.1. MICROBIOLOGY: Blood cultures were negative. IMAGING STUDIES: Chest x-ray on admission showed some bilateral pulmonary edema. Arterial Doppler shows there are elevated velocities noticed in the distal segment of the right posterior tibial artery. 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 Venous lower extremity Doppler shows lower extremity venous system shows no evidence of venous thrombosis. No evidence of DVT seen. HOSPITAL COURSE: This is a 73-year-old male known to my service, very noncompliant, who has a history of CHF, does not follow up with the primary care doctor frequently, who comes in with underlying shortness of breath and is being treated for acute exacerbation of CHF. Cardiology was consulted. Patient has a known history of systolic and diastolic dysfunction. Patient had significant edema on admission as well. Patient was started on a Lasix drip. Patient improved tremendously, was breathing much better. He had no more edema, and his scrotal swelling improved tremendously while in the hospital. He also had some bilateral lower extremity cellulitis due to a recent fall with scrapings on his bilateral shins, in which he was on IV antibiotics. He improved tremendously and was discharged on oral doxycycline. In relation to his mobility, he worked with PT and OT and they recommended retirement. He will be discharged to a retirement facility. His hypertension was well controlled and managed. His scrotal swelling improved while he was in the hospital. On discharge vital signs stable, labs reviewed and stable. Patient seen and evaluated and examined thoroughly on the day of discharge with no other complaints. Patient verbalized understanding and agrees to plan of care, to follow up accordingly as an outpatient with the primary care physician in 1 week and his barn worker in 2 to 3 weeks' time. Also, his venous Doppler was negative for DVT. Arterial Doppler showed some evidence of some PAD, in which he needs to follow up as an outpatient with his barn worker. DISCHARGE MEDICATIONS: See med reconciliation form including Bumex 1 mg 1 tab p.o. daily, potassium supplements 20 mEq 1 tab p.o. daily, doxycycline 100 mg p.o. b.i.d. times 10 days, lisinopril 2.5 mg 1 tab p.o. daily, aspirin 81 mg daily. DISPOSITION: To retirement facility. CONDITION: Stable. DIET: Heart healthy. In the event of any worsening symptoms, the patient advised to come back to the ED for further evaluation. Discharge summary took greater than 35 minutes. AMADOU SLATER MD Job#: [id number] EV
== END 2018-06-22 13:40 | DRG 602 ==
LOC: ER 20:33 → ERHOLD 06-18 00:15 → MED/SURG3 06-18 11:58
PROVIDERS: ADMIT Internal Medicine; ATTEND Internal Medicine
DX: L03.116 Cellulitis of left lower limb (principal); I50.41 Acute combined systolic (congestive) and diastolic (congestive) heart failure; L03.115 Cellulitis of right lower limb; I11.0 Hypertensive heart disease with heart failure; Z91.19 Patient's noncompliance with other medical treatment and regimen; J60 Coalworker's pneumoconiosis; Z95.1 Presence of aortocoronary bypass graft; I25.10 Atherosclerotic heart disease of native coronary artery without angina pectoris; S80.812A Abrasion, left lower leg, initial encounter; S80.811A Abrasion, right lower leg, initial encounter; Z83.3 Family history of diabetes mellitus; Z82.49 Family history of ischemic heart disease and other diseases of the circulatory system; Z91.81 History of falling; E66.01 Morbid (severe) obesity due to excess calories; N28.9 Disorder of kidney and ureter, unspecified; M19.90 Unspecified osteoarthritis, unspecified site; Z68.30 Body mass index [BMI] 30.0-30.9, adult; R53.81 Other malaise
CPT/HCPCS: 36415; 51700; 71045; 80048; 80053; 80202; 81001; 82550; 82553; 82948; 83880; 84484; 85025; 85610; 85730; 87040; 93005; 93925; 93970; 96365; 96366; 96374; 97139; 99284; J1650; J1940; J2543; J3370; J7050

== ENCOUNTER 2019-02-22 11:36 | Observation (INO) | payer MEDICARE, OTHER ==
[~2019-02-22] VITALS: Ht 180.3 cm; Wt 93.1 kg
[~2019-02-22 11:36] MED LIST changes: +NITROGLYCERIN0.4 MG SL; +POTASSIUM CHLO20 ME1 PO
[2019-02-22] MEDS ORDERED: SODIUM CHLORIDE 0.9% 1000ML 1,000 ML IV STA (11:38)
--- OUTSIDE RECORDS SUMMARY | 2019-02-22 11:39 | XMS REPORT | Continuity of Care Document ---
Author Author [facility] Interface Address Unknown Phone Unavailable Problems Problem Status Onset Date Classification Date Reported Comments Source Sepsis, unspecified organism 10/15/2017 12/30/2017 [facility] FALL Active 09/16/2017 [facility] UTI (URINARY TRACT INFECTION), ALTERED M Active 09/16/2017 [facility] K43.9 - VENTRAL HERNIA WITHOUT OBSTRUC Active 12/30/2016 [facility] [place] I50.9 - "HEART FAILURE, UNSPECIFIED" Active 11/30/2016 [facility] [place] R05 - COUGH [facility] Metabolic encephalopathy 12/30/2017 [facility] Ventricular tachycardia 12/30/2017 [facility] Encounter for immunization 12/30/2017 [facility] Acute on chronic systolic heart failure 12/30/2017 [facility] Other ascites 12/30/2017 [facility] Urinary tract infection, site not specified 12/30/2017 [facility] Scabies 12/30/2017 [facility] Unspecified dementia without behavioral disturbance 12/30/2017 [facility] Atherosclerotic heart disease of [place] coronary artery without angina pectoris 12/30/2017 [facility] Unspecified cirrhosis of liver 12/30/2017 [facility] Other specified disorders of the male genital organs 12/30/2017 [facility] Benign prostatic hyperplasia without lower urinary tract symptoms 12/30/2017 [facility] Hypertensive heart disease with heart failure 12/30/2017 [facility] Proteus (morganii) as the cause of diseases classified elsewhere 12/30/2017 [facility] Repeated falls 12/30/2017 [facility] Presence of aortocoronary bypass graft 12/30/2017 [facility] History of falling 12/30/2017 [facility] Anticoagulated Resolved Problem 12/30/2017 [facility] CAD (<span ID="[id number]">Confirmed</span>) Resolved Problem 12/30/2017 [facility] Liver disease Resolved Problem 12/30/2017 [facility] HTN (<span [id number]">Confirmed</span>) Resolved Problem 12/30/2017 [facility] URINARY TRACT INFECTION, SITE NOT SPECIF Active [facility] ALTERED MENTAL STATUS, UNSPECIFIED Active [facility] UNSPECIFIED FALL, INITIAL ENCOUNTER Active [facility] Medications Medication Details Route Status Patient Instructions Ordering Provider Order Date Source tamsulosin 0.4 mg oral capsule 0.4 mg=1 cap, PO, After Dinner, # 30 cap, 0 Refill(s) Active 09/23/2017 [facility] cephalexin 500 mg oral capsule 500 mg=1 cap, PO, ABXQ6H, # 20 cap, 0 Refill(s) No Longer Active 09/23/2017 [facility] Bumex 1 mg, 1 tab, Route: PO, Drug form: TAB, BID, Dosing Weight 86.563, kg, Start date: 09/23/17 9:00:00 [employer], Duration: 30 day, Stop date: 10/22/17 17:00:00 CSTNotes: (Same As: Bumex) Inactive 09/23/2017 [facility] Keflex 500 mg, 1 cap, Route: PO, Drug form: CAP, ABXQ6H, Dosing Weight 86.563, kg, Start date: 09/23/17 9:00:00 [employer], Duration: 30 day, Stop date: 10/23/17 3:00:00 CSTNotes: Take on empty stomach. (Same As: Keflex) Inactive 09/23/2017 [facility] potassium chloride 20 mEq oral tablet, extended release 40 mEq, 2 tab, Route: PO, Drug form: ERTAB, ONCE, Dosing Weight 86.563, kg, Start date: 09/21/17 11:03:00 [employer], Stop date: 09/21/17 11:03:00 CSTNotes: (Same as: K-Dur 20) "Do Not Crush" With food and full glass of water Inactive 09/21/2017 [facility] Ergocalciferol 50,000 IntlUnit, 1 cap, Route: PO, Drug form: CAP, Daily, Dosing Weight 86.563, kg, Start date: 09/21/17 9:00:00 [employer], Duration: 3 day, Stop date: 09/23/17 9:00:00 CSTNotes: (Same as: Vitamin D) "Do Not Crush" No Longer Active 09/21/2017 [facility] Amiodarone 200 mg, 1 tab, Route: PO, Drug form: TAB, Daily, Dosing Weight 86.563, kg, Start date: 09/21/17 9:00:00 [employer], Duration: 30 day, Stop date: 10/20/17 9:00:00 CSTNotes: (Same as: Cordarone) No Longer Active 09/21/2017 [facility] RN-Do not give Vanc till trough drawn 09/21 @ 5:30 RN-Do not give Vanc till trough drawn 09/21 @ 5:30, Attn:RN, Drug form: MISC, Route: MISC, ONCE, 09/21/17 5:00:00 [employer], Stop date: 09/21/17 5:00:00 [employer] Inactive 09/21/2017 [facility] Amiodarone 400 mg, 2 tab, Route: PO, Drug form: TAB, ONCE, Dosing Weight 86.563, kg, Start date: 09/20/17 15:46:00 [employer], Stop date: 09/20/17 15:46:00 CSTNotes: (Same as: Cordarone) Inactive 09/20/2017 [facility] Phenergan 12.5 mg, 0.5 mL, Route: IVPB, Q6H, Dosing Weight 86.563, kg, PRN Nausea & Vomiting, Start date: 09/20/17 15:03:00 [employer], Duration: 30 day, Stop date: 10/20/17 15:02:00 CSTNotes: Do not give IV push. (Same as: Phenergan) No Longer Active 09/20/2017 [facility] morphine Sulfate 6 mg, 3 mL, Route: PO, Drug form: SOLN, Q2H, PRN Chest Pain, Start date: 09/20/17 14:11:00 [employer], Duration: 30 day, Stop date: 10/20/17 14:10:00 CSTNotes: (Same as:MORPhine Sulfate) No Longer Active 09/20/2017 [facility] Nitroglycerin 0.4 MG Sublingual Tablet [Nitrostat] 0.4 mg, 1 tab, Route: SL, Drug form: TAB, Q5Min, Dosing Weight 86.563, kg, PRN Chest Pain, Start date: 09/20/17 13:48:00 [employer], Duration: 3 doses or times, Stop date: 10/20/17 13:47:00 CSTNotes: (Same as:Nitroquick, Nitrostat) "Do Not Crush" Sublingual tablet No Longer Active 09/20/2017 [facility] Terbutaline 0.25 mg, 0.25 mL, Route: SUB-Q, Drug form: INJ, Q6H, Dosing Weight 86.563, kg, PRN Bradycardia, Start date: 09/20/17 13:48:00 [employer], Duration: 30 day, Stop date: 10/20/17 13:47:00 CSTNotes: DO NOT USE IN [employer] (Same As: Brethine) No Longer Active 09/20/2017 [facility] Lopressor 2.5 mg, 2.5 mL, Route: IVP, Drug form: INJ, Q3H, Dosing Weight 86.563, kg, PRN Tachycardia, Start date: 09/20/17 13:48:00 [employer], Duration: 30 day, Stop date: 10/20/17 13:47:00 CSTNotes: (Same as: Lopressor) Push over 2 minutes No Longer Active 09/20/2017 [facility] Morphine 2 mg, Route: IVP, Q2H, Dosing Weight 86.563, kg, PRN Chest Pain, Start date: 09/20/17 13:47:00 [employer], Duration: 30 day, Stop date: 10/20/17 13:46:00 [employer] Inactive 09/20/2017 [facility] Hydralazine 10 mg, 0.5 mL, Route: IV, Drug form: INJ, Q4H, Dosing Weight 86.563, kg, PRN Hypertension, Start date: 09/20/17 13:47:00 [employer], Duration: 30 day, Stop date: 10/20/17 13:46:00 CSTNotes: (Same as: Apresoline) Push over 5 minutes No Longer Active 09/20/2017 [facility] cefepime 1 gm, Route: IVPB, ABXQ8H, Dosing Weight 86.563, kg, ., Start date: 09/19/17 21:00:00 [employer], Duration: 10 day, Stop date: 09/29/17 13:00:00 [employer], ABX Indication: Skin/Soft Tissue InfectionNotes: (Same As: Maxipime) MEDICATION WASTE Product Size: 1000 mg Product Wasted: ___ mg No Longer Active 09/20/2017 [facility] Vancomycin 1 ea, Route: MISC, ONCALL, Dosing Weight 86.563, kg, Start date: 09/19/17 18:00:00 [employer], Duration: 10 day, Stop date: 09/29/17 17:59:00 [employer], Pharmacy to dose, ABX Indication: Skin/Soft Tissue Infection Inactive 09/20/2017 [facility] Flomax 0.4 mg, 1 cap, Route: PO, Drug form: CAP, After Dinner, Dosing Weight 86.563, kg, Start date: 09/19/17 17:00:00 [employer], Duration: 30 day, Stop date: 10/18/17 17:00:00 CSTNotes: (Same As: Flomax) "Do Not Crush" No Longer Active 09/19/2017 [facility] bumetanide 10 mg + Sodium Chloride 0.9% (titrate) 60 mL 60 mL, Rate: 10 ml/hr, Infuse over: 10 hr, Dosing Weight 86.563, kg, Route: IV, Total Volume: 100 mL, Start Date: 09/19/17 13:11:00 [employer], Duration: 30 day, Stop date: 10/19/17 13:10:00 [employer], Replace Every: 10 hrNotes: (Same As: Bumex) PROTECT FROM LIGHT No Longer Active 09/19/2017 [facility] Omnipaque 300 100 ml, 0 ml/hr, Route: IV, Drug Form: SOLN, Dosing Weight 86.563, kg, ONCE, Start date: 09/19/17 8:26:00 [employer], Stop date: 09/19/17 8:26:00 CSTNotes: (Same as:Omnipaque 300). WASTE: F/P - Black; E - Municipal Trash Bin Inactive 09/19/2017 [facility] Permethrin 50 MG/ML Topical Cream 1 appl, Route: TOP, ONCE, Drug form: CRM, Start date: 09/18/17 12:20:00 [employer], Stop date: 09/18/17 12:20:00 CSTNotes: (Same as: Elimite) WASTE: F/P - Black; E - Municipal Trash Bin Inactive 09/18/2017 [facility] Streptococcus pneumoniae serotype 1 capsular antigen diphtheria [id number] protein conjugate vaccine / Streptococcus pneumoniae serotype 14 capsular antigen diphtheria [id number] protein conjugate vaccine / Streptococcus pneumoniae serotype 18C capsular antigen d 0.5 mL, Route: IM, Drug Form: INJ, Daily, Start date: 09/18/17 12:00:00 [employer], Duration: 1 doses or times, Stop date: 09/18/17 12:00:00 CSTNotes: Shake well prior to use (Same as: Prevnar 13) Inactive 09/18/2017 [facility] Furosemide 40 MG Oral Tablet 40 mg, 1 tab, Route: PO, Drug form: TAB, Daily, Dosing Weight 95.455, kg, Start date: 09/18/17 9:00:00 [employer], Duration: 30 day, Stop date: 10/17/17 9:00:00 CSTNotes: (Same as: Lasix) May cause GI upset. Give with food or milk. No Longer Active 09/18/2017 [facility] clopidogrel 75 mg, 1 tab, Route: PO, Drug form: TAB, Daily, Dosing Weight 95.455, kg, Start date: 09/18/17 9:00:00 [employer], Duration: 30 day, Stop date: 10/17/17 9:00:00 CSTNotes: (Same As: Plavix) No Longer Active 09/18/2017 [facility] Famotidine 20 MG Oral Tablet [Pepcid] 20 mg, 1 tab, Route: PO, Drug form: TAB, Daily, Dosing Weight 95.455, kg, Start date: 09/18/17 9:00:00 [employer], Duration: 30 day, Stop date: 10/17/17 9:00:00 CSTNotes: (Same as: Pepcid) No Longer Active 09/18/2017 [facility] cefepime 1 gm, Route: IVPB, Q8H, Dosing Weight 95.455, kg, (CrCl >/=50 ml/min), Start date: 09/18/17 1:00:00 [employer], Duration: 5 day, Stop date: 09/22/17 13:00:00 [employer], ABX Indication: Urinary Tract InfectionNotes: (Same As: Maxipime) MEDICATION WASTE Product Size: 1000 mg Product Wasted: ___ mg No Longer Active 09/18/2017 [facility] Rocephin 1 gm, Route: IVP, [id number], Dosing Weight 95.455, kg, Start date: 09/17/17 22:00:00 [employer], Duration: 5 day, Stop date: 09/21/17 22:00:00 [employer], ABX Indication: Urinary Tract InfectionNotes: (Same As: Rocephin). Use with 100 mL NS and infuse over 30 min MEDICATION WASTE Product Size: 1000 mg Product Wasted: ___ mg Inactive 09/18/2017 [facility] carvedilol 6.25 mg, 2 tab, Route: PO, Drug form: TAB, BID, Dosing Weight 95.455, kg, Start date: 09/17/17 21:00:00 [employer], Duration: 30 day, Stop date: 10/17/17 9:00:00 CSTNotes: Give with food. (Same As: Coreg) No Longer Active 09/18/2017 [facility] Simvastatin 10 mg, 1 tab, Route: PO, Drug form: TAB, Bedtime, Dosing Weight 95.455, kg, Start date: 09/17/17 21:00:00 [employer], Duration: 30 day, Stop date: 10/16/17 21:00:00 CSTNotes: (Same as: Zocor) No Longer Active 09/18/2017 [facility] Ramipril 1.25 mg, 1 cap, Route: PO, Drug form: CAP, Bedtime, Dosing Weight 95.455, kg, Start date: 09/17/17 21:00:00 [employer], Duration: 30 day, Stop date: 10/16/17 21:00:00 CSTNotes: (Same as:Altace) No Longer Active 09/18/2017 [facility] Aspirin Enteric Coated 81 mg, 1 tab, Route: PO, Drug form: ECTAB, Daily, Dosing Weight 95.455, kg, Start date: 09/17/17 18:00:00 [employer], Duration: 30 day, Stop date: 10/17/17 9:00:00 CSTNotes: Do not crush or chew. (Same As: Ecotrin) No Longer Active 09/18/2017 [facility] Maxipime + sterile water 10 mL 1 gm, Route: IVP, ONCE, Start date: 09/17/17 17:38:00 [employer], Stop date: 09/17/17 17:38:00 [employer], ABX Indication: Urinary Tract InfectionNotes: (Same As: Maxipime) MEDICATION WASTE Product Size: 1000 mg Product Wasted: ___ mg Inactive 09/17/2017 [facility] oxybutynin 5 mg, 1 tab, Route: PO, Drug form: TAB, BID, Dosing Weight 95.455, kg, Start date: 09/17/17 17:00:00 [employer], Duration: 30 day, Stop date: 10/17/17 9:00:00 CSTNotes: Same as: Ditropan) No Longer Active 09/17/2017 [facility] Lovenox 40 mg, 0.4 mL, Route: SUB-Q, Drug form: INJ, [id number], Dosing Weight 95.455, kg, Start date: 09/17/17 17:00:00 [employer], Duration: 30 day, Stop date: 10/16/17 17:00:00 CSTNotes: (Same as: Lovenox) No Longer Active 09/17/2017 [facility] simvastatin 10 mg oral tablet 10 mg=1 tab, PO, Bedtime, 0 Refill(s) Active 09/17/2017 [facility] spironolactone 25 mg oral tablet 25 mg=1 tab, PO, Daily, 0 Refill(s) Active 09/17/2017 [facility] potassium chloride 10 mEq oral tablet, extended release 20 mEq=2 tab, PO, Daily, 0 Refill(s) Active 09/17/2017 [facility] ramipril 1.25 mg oral capsule 1.25 mg=1 cap, PO, Bedtime, 0 Refill(s) Active 09/17/2017 [facility] oxybutynin 5 mg oral tablet 5 mg=1 tab, PO, BID, 0 Refill(s) Active 09/17/2017 [facility] Furosemide 40 MG Oral Tablet 40 mg=1 tab, PO, Daily, 0 Refill(s) Active 09/17/2017 [facility] enalapril 10 mg oral tablet 10 mg=1 tab, PO, Daily, 0 Refill(s) Active 09/17/2017 [facility] Betamethasone 0.5 MG/ML / Clotrimazole 10 MG/ML Topical Cream 1 appl, TOP, BID, 0 Refill(s) Active 09/17/2017 [facility] clopidogrel 75 mg oral tablet 75 mg=1 tab, PO, Daily, 0 Refill(s) Active 09/17/2017 [facility] carvedilol 6.25 mg oral tablet 6.25 mg=1 tab, PO, BID, 0 Refill(s) Active 09/17/2017 [facility] Aspirin Enteric Coated 81 mg oral delayed release tablet 81 mg=1 tab, PO, Daily, 0 Refill(s) Active 09/17/2017 [facility] Ondansetron 4 mg, 2 mL, Route: IVP, Drug form: INJ, Q6H, Dosing Weight 95.455, kg, PRN Nausea & Vomiting, Start date: 09/17/17 7:01:00 [employer], Duration: 30 day, Stop date: 10/17/17 7:00:00 CSTNotes: (Same as: Cammie) MEDICATION WASTE Product Size: 4 mg Product Wasted: ___ mg No Longer Active 09/17/2017 [facility] Acetaminophen 325 mg, 1 tab, Route: PO, Drug form: TAB, Q4H, Dosing Weight 95.455, kg, PRN Pain Score 4-6, Start date: 09/17/17 7:01:00 [employer], Duration: 30 day, Stop date: 10/17/17 7:00:00 CSTNotes: Do not exceed 4 gm/day. (Same as: Tylenol) No Longer Active 09/17/2017 [facility] Acetaminophen 325 MG / Hydrocodone Bitartrate 5 MG Oral Tablet 1 tab, Route: PO, Drug Form: TAB, Dosing Weight 95.455, kg, Q4H, PRN Pain Score 4-6, Start date: 09/17/17 7:01:00 [employer], Duration: 30 day, Stop date: 10/17/17 7:00:00 CSTNotes: (Same as: [place] 325/5) Do not exceed 4gm/day of acetaminophen. No Longer Active 09/17/2017 [facility] Sodium Chloride 0.9% (Bolus) IV 500 mL, 500 ml/hr, Infuse Over: 1 hr, Route: IV, 500, Drug form: INJ, ONCE, Priority: STAT, Dosing Weight 95.455 kg, Start date: 09/16/17 19:10:00 [employer], Stop date: 09/16/17 19:10:00 [employer] Inactive 09/17/2017 [facility] Ceftriaxone 1 gm, Route: IVPB, ONCE, Dosing Weight 95.455, kg, Priority: STAT, Start date: 09/16/17 19:10:00 [employer], Stop date: 09/16/17 19:10:00 [employer], ABX Indication: Urinary Tract InfectionNotes: (Same As: Rocephin). Use with 100 mL NS and infuse over 30 min MEDICATION WASTE Product Size: 1000 mg Product Wasted: __0_ mg Inactive 09/17/2017 [facility] Allergies, Adverse Reactions, Alerts Substance Category Reaction Severity Reaction type Status Date Reported Comments Source azithromycin Assertion Drug allergy Active [facility] Immunizations Immunization Date Given Site Status Last Updated Comments Source influenza virus vaccine, inactivated 09/18/2017 Right deltoid completed [facility] pneumococcal 13-valent vaccine 09/18/2017 Left deltoid completed Ali [facility] Results Order Name Results Value Reference Range Date Interpretation Comments Source ELECTROLYTES AGAP 12.8 meq/L 10.0 - 20.0 09/23/2017 [facility] ELECTROLYTES eGFR 58 mL/min/1.73m2 09/23/2017 Result Comment: [...] should be multiplied by the estimated BMI. [facility] ELECTROLYTES CO2 32 meq/L 24 - 32 09/23/2017 [facility] ELECTROLYTES Glucose Lvl 174 mg/dL 70 - 99 09/23/2017 [facility] ELECTROLYTES Sodium Lvl 134 meq/L 135 - 145 09/23/2017 [facility] ELECTROLYTES Chloride Lvl 93 meq/L 95 - 109 09/23/2017 [facility] ELECTROLYTES Calcium Lvl 9.3 mg/dL 8.5 - 10.5 09/23/2017 [facility] ELECTROLYTES Potassium Lvl 3.8 meq/L 3.5 - 5.1 09/23/2017 [facility] ELECTROLYTES BUN 28 mg/dL 7 - 22 09/23/2017 [facility] ELECTROLYTES Creatinine Lvl 1.22 mg/dL 0.50 - 1.40 09/23/2017 [facility] HEMATOLOGY Platelet 382 K/CMM 133 - 450 09/23/2017 [facility] MCHC 32.2 g/dL 32.0 - 36.0 09/23/2017 [facility] MPV 7.8 fL 7.4 - 10.4 09/23/2017 [facility] RDW 15.9 % 11.5 - 14.5 09/23/2017 [facility] Hct 49.8 % 42.0 - 54.0 09/23/2017 [facility] MCH 26.7 pg 27.0 - 31.0 09/23/2017 [facility] MCV 83.1 fL 80.0 - 94.0 09/23/2017 [facility] Hgb 16.0 g/dL 14.0 - 18.0 09/23/2017 [facility] WBC 12.6 K/CMM 3.7 - 10.4 09/23/2017 [facility] RBC 6.00 M/CMM 4.70 - 6.10 09/23/2017 [facility] AGAP 14.7 meq/L 10.0 - 20.0 09/22/2017 [facility] eGFR 73 mL/min/1.73m2 09/22/2017 Result Comment: [...] should be multiplied by the estimated BMI. [facility] ELECTROLYTES Chloride Lvl 94 meq/L 95 - 109 09/22/2017 [facility] ELECTROLYTES Potassium Lvl 3.7 meq/L 3.5 - 5.1 09/22/2017 [facility] ELECTROLYTES Sodium Lvl 134 meq/L 135 - 145 09/22/2017 [facility] ELECTROLYTES Creatinine Lvl 1.02 mg/dL 0.50 - 1.40 09/22/2017 [facility] ELECTROLYTES BUN 25 mg/dL 7 - 22 09/22/2017 [facility] ELECTROLYTES Calcium Lvl 9.5 mg/dL 8.5 - 10.5 09/22/2017 [facility] ELECTROLYTES CO2 29 meq/L 24 - 32 09/22/2017 [facility] ELECTROLYTES Glucose Lvl 116 mg/dL 70 - 99 09/22/2017 [facility] HEMATOLOGY Platelet 386 K/CMM 133 - 450 09/22/2017 [facility] HEMATOLOGY MPV 7.7 fL 7.4 - 10.4 09/22/2017 [facility] HEMATOLOGY RDW 16.2 % 11.5 - 14.5 09/22/2017 [facility] HEMATOLOGY MCHC 32.9 g/dL 32.0 - 36.0 09/22/2017 [facility] HEMATOLOGY MCH 27.3 pg 27.0 - 31.0 09/22/2017 [facility] HEMATOLOGY MCV 83.0 fL 80.0 - 94.0 09/22/2017 [facility] HEMATOLOGY Hct 48.2 % 42.0 - 54.0 09/22/2017 [facility] HEMATOLOGY Hgb 15.9 g/dL 14.0 - 18.0 09/22/2017 [facility] HEMATOLOGY RBC 5.81 M/CMM 4.70 - 6.10 09/22/2017 [facility] WBC 11.3 K/CMM 3.7 - 10.4 09/22/2017 [facility] CHEM PANEL A/G Ratio 0.8 0.7 - 1.6 09/21/2017 [facility] CHEM PANEL Bili Indirect 0.6 mg/dL 0.0 - 1.0 09/21/2017 [facility] CHEM PANEL Bili Direct 0.3 mg/dL 0.0 - 0.3 09/21/2017 [facility] CHEM PANEL Globulin 4.2 g/dL 2.7 - 4.2 09/21/2017 [facility] CHEM PANEL ALT 27 unit/L 0 - 65 09/21/2017 [facility] CHEM PANEL Alk Phos 185 unit/L 39 - 136 09/21/2017 [facility] CHEM PANEL AST 18 unit/L 0 - 37 09/21/2017 [facility] CHEM PANEL Total Protein 7.5 g/dL 6.4 - 8.4 09/21/2017 [facility] CHEM PANEL Albumin Lvl 3.3 g/dL 3.5 - 5.0 09/21/2017 [facility] CHEM PANEL Bili Total 0.9 mg/dL 0.2 - 1.3 09/21/2017 [facility] CHEM PANEL Magnesium Lvl 2.2 mg/dL 1.8 - 2.4 09/21/2017 [facility] ELECTROLYTES AGAP 14.4 meq/L 10.0 - 20.0 09/21/2017 [facility] ELECTROLYTES CO2 31 meq/L 24 - 32 09/21/2017 [facility] ELECTROLYTES Calcium Lvl 9.2 mg/dL 8.5 - 10.5 09/21/2017 [facility] ELECTROLYTES eGFR 71 mL/min/1.73m2 09/21/2017 Result Comment: [...] should be multiplied by the estimated BMI. [facility] ELECTROLYTES Potassium Lvl 3.4 meq/L 3.5 - 5.1 09/21/2017 [facility] ELECTROLYTES Chloride Lvl 92 meq/L 95 - 109 09/21/2017 [facility] ELECTROLYTES Sodium Lvl 134 meq/L 135 - 145 09/21/2017 [facility] ELECTROLYTES Creatinine Lvl 1.04 mg/dL 0.50 - 1.40 09/21/2017 [facility] ELECTROLYTES BUN 20 mg/dL 7 - 22 09/21/2017 [facility] ELECTROLYTES Glucose Lvl 127 mg/dL 70 - 99 09/21/2017 [facility] TOXICOLOGY Vanco Tr 11.4 ug/ml 09/21/2017 [facility] TOXICOLOGY Vanco Tr TND 0 09/21/2017 [facility] CARDIAC ENZYMES BNP 582 pg/mL <=100 pg/mL 09/20/2017 [facility] CHEM PANEL Uric Acid 4.4 mg/dL 3.8 - 8.0 09/20/2017 [facility] CHEM PANEL Vitamin D, 25-OH, Total 36.3 ng/mL 30.0 - 100.0 09/20/2017 [facility] CHEM PANEL Phosphorus 3.7 mg/dL 2.5 - 4.5 09/20/2017 [facility] HEMATOLOGY Sed Rate 19 mm/h 0 - 15 09/20/2017 [facility] IMMUNOLOGY Homocyst Tot 11.6 umol/L 3.7 - 13.9 09/20/2017 [facility] IMMUNOLOGY Prealbumin 17.2 mg/dL 18.0 - 45.0 09/20/2017 [facility] LIPIDS LDL (Calculated) 81 mg/dL <=99 mg/dL 09/20/2017 [facility] LIPIDS VLDL 43 09/20/2017 [facility] LIPIDS Trig 215 mg/dL <=149 mg/dL 09/20/2017 [facility] LIPIDS HDL 25 mg/dL >=61 mg/dL 09/20/2017 [facility] LIPIDS Chol 149 mg/dL <=199 mg/dL 09/20/2017 [facility] LIPIDS CHD Risk 5.96 4.00 - 7.30 09/20/2017 [facility] SPECIAL CHEMISTRY Hgb A1C 7.1 % <=5.6 % 09/20/2017 [facility] CHEM PANEL Magnesium Lvl 2.3 mg/dL 1.8 - 2.4 09/20/2017 [facility] HEMATOLOGY Hct 46.2 % 42.0 - 54.0 09/20/2017 [facility] HEMATOLOGY MCV 83.0 fL 80.0 - 94.0 09/20/2017 [facility] HEMATOLOGY Hgb 15.3 g/dL 14.0 - 18.0 09/20/2017 [facility] HEMATOLOGY WBC 8.2 K/CMM 3.7 - 10.4 09/20/2017 [facility] HEMATOLOGY RBC 5.56 M/CMM 4.70 - 6.10 09/20/2017 [facility] HEMATOLOGY MPV 8.0 fL 7.4 - 10.4 09/20/2017 [facility] HEMATOLOGY MCH 27.6 pg 27.0 - 31.0 09/20/2017 [facility] HEMATOLOGY MCHC 33.2 g/dL 32.0 - 36.0 09/20/2017 [facility] HEMATOLOGY RDW 16.0 % 11.5 - 14.5 09/20/2017 [facility] HEMATOLOGY Platelet 317 K/CMM 133 - 450 09/20/2017 [facility] Abdomen/Pelvis w/wo IV contrast CT Abdomen/Pelvis w/wo IV contrast CT Patient Name: DELMIS CORREA : 1945; Age: 72 years y/o Male MR: [id number] Study: Abdomen/Pelvis w/wo IV contrast CT 09/18/2017 6:50 PM [employer] Ordering Physician: Joni Menendez MD Clinical Indication: [...] other significant/acute abdominal or pelvic findings. SL: [id number] 09/19/2017 - - Read by: Nino Prince MD Dictated Date/time: 09/19/17 15:05 Electronically Signed by: Nino Prince MD 09/19/17 15:16 FINAL REPORT [facility] Scrotal/Testicle w Doppler US Scrotal/Testicle w Doppler US Patient Name: DELMIS CORREA : 1945; Age: 72 years y/o Male MR: [id number] Study: Scrotal/Testicle w Doppler US 09/18/2017 6:50 PM [employer] Ordering Physician: Clinical Indication: - Scrotal swelling; [...] right epididymal cyst. Bilateral scrotal varicocele. SL: [id number] 09/18/2017 - - Read by: Nino Prince MD Dictated Date/time: 09/19/17 08:24 Electronically Signed by: Nino Prince MD 09/19/17 08:27 FINAL REPORT [facility] Abdomen RUQ Abdomen RUQ Abdomen RUQ US 72 years /o Male [...] Otherwise unremarkable right upper quadrant ultrasound. SL: [id number] 09/18/2017 - - Read by: Ced Renae MD Dictated Date/time: 09/18/17 16:21 Electronically Signed by: Ced Renae MD 09/18/17 16:26 FINAL REPORT [facility] HEMATOLOGY Basophils 1.3 % 0.0 - 1.0 09/18/2017 [facility] HEMATOLOGY Segs-Bands # 6.6 K/CMM 1.5 - 8.1 09/18/2017 [facility] HEMATOLOGY Monocytes 12.0 % 2.0 - 12.0 09/18/2017 [facility] HEMATOLOGY Eosinophils 8.4 % 0.0 - 4.0 09/18/2017 [facility] HEMATOLOGY Eosinophils # 0.9 K/CMM 0.0 - 0.5 09/18/2017 [facility] HEMATOLOGY Basophils # 0.1 K/CMM 0.0 - 0.2 09/18/2017 [facility] HEMATOLOGY Lymphocytes 14.7 % 20.0 - 40.0 09/18/2017 [facility] HEMATOLOGY Segs 63.6 % 45.0 - 75.0 09/18/2017 [facility] HEMATOLOGY Monocytes # 1.2 K/CMM 0.0 - 0.8 09/18/2017 [facility] HEMATOLOGY Lymphocytes # 1.5 K/CMM 1.0 - 5.5 09/18/2017 [facility] CHEM PANEL Ammonia 23.0 umol/L <=45.0 uMol/L 09/16/2017 [facility] URINE AND STOOL UA Sq Epi None Seen 09/16/2017 [facility] URINE AND STOOL UA Mucus Few /LPF None Seen /LPF 09/16/2017 [facility] URINE AND STOOL UA Blood Small *ABN* (09/16/17 5:53 PM) Negative 09/16/2017 [facility] URINE AND STOOL UA Urobilinogen 4.0 mg/dL 0.1 - 1.0 09/16/2017 [facility] URINE AND STOOL UA Leuk Est Moderate *ABN* (09/16/17 5:53 PM) Negative 09/16/2017 [facility] URINE AND STOOL UA WBC null 0 - 5 09/16/2017 [facility] URINE AND STOOL UA Nitrite Positive *ABN* (09/16/17 5:53 PM) Negative 09/16/2017 [facility] URINE AND STOOL UA RBC 124 /HPF 0 - 2 09/16/2017 [facility] URINE AND STOOL UA pH 7.0 5.0 - 8.0 09/16/2017 [facility] URINE AND STOOL UA Ketones Negative mg/dL Negative mg/dL 09/16/2017 [facility] URINE AND STOOL UA Glucose Negative mg/dL Negative mg/dL 09/16/2017 [facility] URINE AND STOOL UA Protein 100 mg/dL Negative mg/dL 09/16/2017 [facility] URINE AND STOOL UA Bili Negative *NA* (09/16/17 5:53 PM) Negative 09/16/2017 [facility] URINE AND STOOL UA Turbidity Marked *ABN* (09/16/17 5:53 PM) Clear 09/16/2017 [facility] URINE AND STOOL UA Color Yellow *NA* (09/16/17 5:53 PM) Yellow 09/16/2017 [facility] URINE AND STOOL UA Spec Grav 1.021 <=1.030 09/16/2017 [facility] CARDIAC ENZYMES CK MB Index null 0.0 - 2.5 09/16/2017 [facility] CARDIAC ENZYMES Total CK 39 unit/L 12 - 191 09/16/2017 [facility] CARDIAC ENZYMES CK MB null 0.5 - 3.6 09/16/2017 [facility] CARDIAC ENZYMES Troponin-I 0.02 ng/mL 0.00 - 0.40 09/16/2017 [facility] CHEM PANEL ALT 15 unit/L 0 - 65 09/16/2017 [facility] CHEM PANEL AST 12 unit/L 0 - 37 09/16/2017 [facility] CHEM PANEL A/G Ratio 0.8 0.7 - 1.6 09/16/2017 [facility] CHEM PANEL Globulin 3.8 g/dL 2.7 - 4.2 09/16/2017 [facility] CHEM PANEL B/C Ratio 15 6 - 25 09/16/2017 [facility] CHEM PANEL Albumin Lvl 3.1 g/dL 3.5 - 5.0 09/16/2017 [facility] CHEM PANEL Total Protein 6.9 g/dL 6.4 - 8.4 09/16/2017 [facility] CHEM PANEL Bili Total 1.2 mg/dL 0.2 - 1.3 09/16/2017 [facility] CHEM PANEL Alk Phos 149 unit/L 39 - 136 09/16/2017 [facility] HEMATOLOGY Basophils # 0.1 K/CMM 0.0 - 0.2 09/16/2017 [facility] HEMATOLOGY Lymphocytes # 1.7 K/CMM 1.0 - 5.5 09/16/2017 [facility] HEMATOLOGY Eosinophils # 0.3 K/CMM 0.0 - 0.5 09/16/2017 [facility] HEMATOLOGY Segs-Bands # 11.7 K/CMM 1.5 - 8.1 09/16/2017 [facility] Monocytes # 2.5 K/CMM 0.0 - 0.8 09/16/2017 [facility] Eosinophils 1.8 % 0.0 - 4.0 09/16/2017 [facility] Monocytes 15.2 % 2.0 - 12.0 09/16/2017 [facility] Basophils 0.4 % 0.0 - 1.0 09/16/2017 [facility] Segs 72.1 % 45.0 - 75.0 09/16/2017 [facility] Lymphocytes 10.5 % 20.0 - 40.0 09/16/2017 [facility] PTT 32.0 s 22.9 - 35.8 09/16/2017 [facility] INR 1.16 0.85 - 1.17 09/16/2017 [facility] PT 14.9 s 12.0 - 14.7 09/16/2017 [facility] Chest 1view DX Chest 1view DX Clinical [...] Ulisses Freeman MD 09/16/17 19:15 FINAL REPORT [facility] Brain wo contrast CT Brain wo contrast [...] Ulisses Freeman MD 09/16/17 17:46 FINAL REPORT [facility] Abdomen wo IV contrast CT Abdomen wo [...] the abdomen and pelvis is recommended. SL: [id number] 01/05/2017 - - Read by: Eric Richard Dictated Date/time: 01/05/17 11:56 Electronically Signed by: Eric Richard 01/05/17 12:08 FINAL REPORT [facility] Chest 2 views [...] Carlitos Burton MD 01/05/17 10:41 FINAL REPORT [facility] Chest 2 views [...] Carlitos Burton MD 11/30/16 10:30 FINAL REPORT [facility] Chest 2 views [...] Arreola MD 10/23/16 16:51 FINAL REPORT [facility] Vital Signs Vital Sign Value Date Comments Source Systolic (mm Hg) 109 09/23/2017 [facility] Diastolic (mm Hg) 63 09/23/2017 [facility] Temperature Oral (F) 97.9 F 09/23/2017 [facility] Respitory Rate 16 09/23/2017 [facility] Heart Rate 61 09/23/2017 [facility] Systolic (mm Hg) 108 09/23/2017 [facility] Diastolic (mm Hg) 73 09/23/2017 [facility] Respitory Rate 16 09/23/2017 [facility] Heart Rate 60 09/23/2017 [facility] Temperature Oral (F) 98.6 F 09/23/2017 [facility] Systolic (mm Hg) 102 09/23/2017 [facility] Diastolic (mm Hg) 59 09/23/2017 [facility] Heart Rate 74 09/23/2017 [facility] Respitory Rate 16 09/23/2017 [facility] Temperature Oral (F) 98.5 F 09/23/2017 [facility] BMI Calculated 26.62 09/18/2017 [facility] Height 180.34 cm 09/18/2017 [facility] Weight 86.563 09/18/2017 [facility] BMI Calculated 29.35 09/16/2017 [facility] Weight 95.455 09/16/2017 [facility] Height 180.34 cm 09/16/2017 [facility] Encounters Location Location Details Encounter Type Encounter Number Reason For Visit Attending Provider ADM Date DC Date Status Source [facility] [id number] Adán Amador 10/23/2016 10/24/2016 [facility] [id number] Adán Amador 11/24/2016 11/25/2016 [facility] [id number] Adán Amador 11/30/2016 12/01/2016 [facility] [id number] Adán Amador 01/05/2017 01/06/[address] [facility] Inpatient [id number] Hirolidia Liat 09/16/2017 09/24/2017 [facility] Procedures Procedure Code Date Perfomer Comments Source Cataract surgery [id number] [facility] Primary repair of inguinal hernia [id number] [facility] Triple coronary bypass [id number] [facility]
--- OUTSIDE RECORDS SUMMARY | 2019-02-22 11:40 | XMS REPORT | Encounter Summary ---
Author Organization Unknown Address [address] [place] [address] Phone [phone] Care Team Providers Care [employer] Name Role Phone Dr. Shea Ochoa 3 [phone] Dmitry Silverman MD 2 [phone] Zev Ricks MD 109 [phone] Zev Kolb MD 130 [phone] Reason for Visit skin problem/rash Instructions 1. Pruritic rash hydroxyzine HCl 25 mg tablet Medrol (New) 4 mg tablets in a dose pack clotrimazole 1 % topical cream 2. Raised prostate specific antigen 3. Edema of lower extremity hydrochlorothiazide 25 mg tablet 4. Rotator cuff syndrome 5. Mixed hyperlipidemia 6. Coronary atherosclerosis clopidogrel 75 mg tablet 7. Male urinary stress incontinence 8. Congestive heart failure 9. Senile purpura 10. Depressive disorder 11. Peripheral vascular disease 12. Chronic obstructive lung disease 13. At risk for falls 14. Essential hypertension Discussion Note: None recorded. Patient educational handouts: No information available. Plan of Care Reminders Provider Appointments Est Patient 10/25/2018 3:45PM Shea Ochoa MD Lab None recorded. Referral None recorded. Procedures None recorded. Surgeries None recorded. Imaging None recorded. Medications Name Start Date aspirin 81 mg tablet,delayed release Take 1 tablet every day by oral route. Benadryl 25 mg capsule Take 2 capsules every 4 hours by oral route. chlorhexidine gluconate 0.12 % mouthwash Place 15 mL twice a day by mucous membrane route as needed. clopidogrel 75 mg tablet Take 1 tablet every day by oral route. clotrimazole 1 % crea clotrimazole 1 % topical cream APPLY TO THE AFFECTED AND SURROUNDING AREAS OF SKIN BY TOPICAL ROUTE 2 TIMES PER DAY IN THE MORNING AND EVENING dexamethasone 4 mg/mL injection solution Take 4 mg by injection route for 1 day. enoxaparin sodium 40 mg/0.4ml soln famotidine 20 mg tabs Flonase 50 mcg/actuation nasal spray,suspension Harrison 1 spray every day by intranasal route for 30 days. hydrochlorothiazide 25 mg tablet Take 1 tablet every day by oral route. hydrochlorothiazide 25 mg tabs hydrocodone 5 mg-acetaminophen 325 mg tablet Take 1 tablet every 6 hours by oral route as needed. hydrocodone 7.5 mg-acetaminophen 325 mg tablet Take 1 tablet every day by oral route at bedtime. hydroxyzine HCl 25 mg tablet Take 1 tablet every day by oral route at bedtime. may be sedating metoprolol succinate ER 25 mg capsule sprinkle, ext. release 24 hr Take 1 capsule every day by oral route. potassium chloride cr 10 meq tbcr once daily tramadol 50 mg tablet Take 1 tablet every 8 hours by oral route. triamcinolone acetonide 40 mg/mL suspension for injection Take 40 mg by injection route. Voltaren 1 % topical gel APPLY 2 GRAM TO THE AFFECTED AREA(S) BY TOPICAL ROUTE 4 TIMES PER DAY Medications Administered None recorded. Vitals Height Blood Pressure 5 ft 11 in 116/78 mm[Hg] Lab Results Date Name Specimen Result Interpretation Description Value Range Status Address Ankle Brachial Index No observation recorded. 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 Gastroesophageal Reflux Disease Active 04/21/2018 Rotator Cuff Syndrome Active 04/21/2018 Edema of Lower Extremity Active 04/21/2018 Male Urinary Stress Incontinence Active 04/21/2018 At Risk for Falls Active 04/21/2018 History of Coronary Artery Bypass Grafting Active 04/21/2018 Mixed Hyperlipidemia Active 08/08/2018 Depressive Disorder Active 08/08/2018 Low Back Pain Active 08/08/2018 Raised Prostate Specific Antigen Active 09/18/2018 Procedures Date Name Performed by 02/22/2017 Heart Surgery Information not available 09/06/1994 Hernia Repair Information not available 08/22/2018 Ankle Brachial Index [facility] [place] [address] [place] [address], [place] [phone] (Work Place) Vaccine List Vaccine Type influenza, unspecified formulation 03/23/2018 Social History Smoking Status Never Smoker Past Encounters 10/11/2018 Hospital Patient; Closed Subcapital Fracture of Left Femur; Pruritic Rash; Raised Prostate Specific Antigen; History of Coronary Artery Bypass Grafting; Rotator Cuff Syndrome; Congestive Heart Failure Shea Ochoa MD: [address] [place] [phone], Ph. 09/20/2018 Pruritic Rash; Raised Prostate Specific Antigen; Edema of Lower Extremity; Rotator Cuff Syndrome; Mixed Hyperlipidemia; Coronary Atherosclerosis; Male Urinary Stress Incontinence; Congestive Heart Failure; Senile Purpura; Depressive Disorder; Peripheral Vascular Disease; Chronic Obstructive Lung Disease; At Risk for Falls; Essential Hypertension Shea Ochoa MD: [address] [place] [phone], Ph. 08/22/2018 Vertigo; At Risk for Falls; History of Coronary Artery Bypass Grafting; Congestive Heart Failure; Screening for Cardiovascular System Disease; Cellulitis; Raised Prostate Specific Antigen; Depressive Disorder; Coronary Atherosclerosis; Chronic Obstructive Lung Disease; Peripheral Vascular Disease; [place] Workers' Pneumoconiosis Shea Ochoa MD: [address] [place] [phone], Ph. History of Present Illness Note:73yo male presents with for one-month follow-up. Last visit 08/22/19. Pt has been doing well this past month. Does have rash on chest & back that has been presents about two months. Pt's states he is not longer taking antidepressant & not longer taking Lasix, but is using hctz 25mg 1-2 tablets as needed to keep swelling out of legs.<div>No further dizziness since stopping lasix. Did not see ENT.</div><div>Is planning to go to Dr Parks, urology on 10/05/18 for elevated PSA & scrotal swelling.</div><div>Easy bleeding - takes ASA several days per week, not everyday</div><div>[facility] no longer coming. Does not want PT at this time.</div><div>Has not rescheduled with Dr Silverman, cardiology.</div><div>Trying to get Medicaid set back up, but having trouble contacting drilling rig operator.</div><div>Walking a bit at home using walker or 's arm for assistance. In wheelchair today for distance.</div><div>
< /div><div><div><div><div><span style="font-size: 14px;">Previously:</span>
< /div><div><div>Several concerns today:</div><div>1. CAD with CABGx3 in February 22, 2017. Has LVEF 35-40% per Dr. Silverman. Denies chest pain or palpitations. No hx of AR. Hx of CHF - has been given lasix aggressively in recent hospitalization (IV and oral). On ASA & Plavix.</div><div>2. Recent fall with injury - pt fell at home on his [birth year], 2019. Pt fell & hit head on cabinet, his throat on metal box, and right arm pinned against the heavy box. < span style="font-size: 14px;">Was hospitalized for six days. No fractures seen. Two weeks later, had MRI of right shoulder showing severe rotator cuff tear. Per , had carotid US -no blockage. Now getting home health through [facility].< /span></div><div><span style="font-size: 14px;">3. Pt developed bleeding from the testicles on 05/13/18. [facility] & [facility] of scrotum - copy of report printed & given to pt & . Report with marked scrotal skin thickening. CT pelvis recommended.</span></div><div>
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 Worked in [employer] in [place] for 10yrs. Never smoked. Pt saw vice president of brand management, Dr. David Villatoro, on 04/25/18. </div><div>Htn - on enalapril 10mg qd, lasix 40mg qd prn, lopressor 50mg bid</div><div>GERD - on famotidine, OTC antacid, Gas-X</div><div>Urinary incontinence -on oxybutynin.</div><div>Chronic low back & both hip pain - using Rx Voltaren gel. Using tramadol.
< /div></div></div></div></div><div>Right rotator cuff tear - saw ortho, Dr Zev Kolb regarding rotator cuff recommends physical therapy. Would like second opinion regarding torn rotator cuff.</div> Review of Systems:ROS as noted in the HPI Review of Systems Comprehensive General Adult ROS Reported By: Patient Constitutional: Constitutional: no fever Eyes: Eyes: no vision change Cardiovascular: Cardiovascular: no chest pain, no palpitations, shortness of breath when lying down Respiratory: Respiratory: no coughing up blood, cough, wheezing, shortness of breath; hx of black lung from working in [employer]. COPD Gastrointestinal: Gastrointestinal: no abdominal pain Genitourinary: Genitourinary: difficulty urinating, incomplete emptying Musculoskeletal: Musculoskeletal: muscle aches, arthralgias/joint pain, back pain, swelling in the extremities Integumentary: Skin: dry skin, growths/lesions; left arm abrasions healing Neurologic: Neurologic: no loss of consciousness, no headaches, weakness, dizziness Psychiatric: Psych: feeling safe in a relationship, no alcohol abuse, no anxiety, no suicidal thoughts, depression Physical Exam General Adult Exam (male) Reported By: Patient Formulator: Formulator: present; pt quiet, most of hx from Constitutional: General Appearance: obese. Level of Distress: NAD. Ambulation: in wheelchair Psychiatric: Mental Status: active and alert, normal mood, normal affect; quiet, does majority of talking Eyes: Lids and Conjunctivae: non-injected. Pupils: PERRLA. EOM: EOMI. Sclerae: non-icteric ENMT: Hearing: no hearing loss. Oropharynx: moist mucous membranes Lungs: Respiratory effort: no dyspnea. Auscultation: no wheezing, decreased breath sounds, diminished air movement, dry rales/crackles Cardiovascular: Heart Auscultation: RRR, normal S1, normal S2, murmur. Neck vessels: no carotid bruits Abdomen: Bowel Sounds: normal. Inspection and Palpation: soft Male : Penis: no discharge. Scrotum: swelling; no source of bleeding on right side noted. Significant swelling of scrotum Musculoskeletal:: Joints, Bones, and Muscles: limited ROM, tenderness. Extremities: edema Neurologic: Gait and Station: ; in wheelchair. Reflexes: diminished Skin: Inspection and palpation: no rash, lesion; left arm wounds healing
--- OUTSIDE RECORDS SUMMARY | 2019-02-22 11:40 | XMS REPORT | Encounter Summary ---
Author Organization Unknown Address [address] [place] [address] Phone [phone] Care Team Providers Care Editor Magazine Name Role Phone Dr. Shea Ochoa 3 [phone] Dmitry Silverman MD 2 [phone] Zev Ricks MD 109 [phone] Zev Kolb MD 130 [phone] Reason for Visit other - see typed reason Instructions 1. History of left hip replacement bedside [facility] health referral - Please evaluate for transfer to inpatient rehab admission to [facility]. 2. At risk for falls 3. Congestive heart failure 4. Coronary atherosclerosis potassium chloride ER 10 mEq tablet,extended release 5. Male urinary stress incontinence 6. Essential hypertension Discussion Note: None recorded. Patient educational handouts: No information available. Plan of Care Reminders Provider Appointments None recorded. Lab None recorded. Referral Home Health Referral 01/16/2019 [facility] [place] Procedures None recorded. Surgeries None recorded. Imaging None recorded. Medications Name Start Date aspirin 81 mg tablet,delayed release Take 1 tablet every day by oral route. Benadryl 25 mg capsule Take 2 capsules every 4 hours by oral route. bumetanide 1 mg tabs chlorhexidine gluconate 0.12 % mouthwash Place 15 mL twice a day by mucous membrane route as needed. clopidogrel 75 mg tablet Take 1 tablet every day by oral route. clopidogrel 75 mg tabs clotrimazole 1 % crea clotrimazole 1 % topical cream APPLY TO THE AFFECTED AND SURROUNDING AREAS OF SKIN BY TOPICAL ROUTE 2 TIMES PER DAY IN THE MORNING AND EVENING dexamethasone 4 mg/mL injection solution Take 4 mg by injection route for 1 day. diclofenac sodium 1 % gel enoxaparin sodium 40 mg/0.4ml soln famotidine 20 mg tabs Flonase 50 mcg/actuation nasal spray,suspension [facility] 1 spray every day by intranasal route for 30 days. furosemide 40 mg tabs hydrochlorothiazide 25 mg tablet Take 1 tablet every day by oral route. patient has upcoming appointment hydrochlorothiazide 25 mg tabs hydrocodone 5 mg-acetaminophen 325 mg tablet Take 1 tablet every 6 hours by oral route as needed. hydrocodone 7.5 mg-acetaminophen 325 mg tablet Take 1 tablet every day by oral route at bedtime. hydrocodone/acetaminophen 7.5-325 mg tabs hydroxyzine HCl 25 mg tablet Take 1 tablet every day by oral route at bedtime. may be sedating linezolid 600 mg tabs metoprolol succinate ER 25 mg capsule sprinkle, ext. release 24 hr Take 1 capsule every day by oral route. metoprolol succinate ER 25 mg tablet,extended release 24 hr TAKE 1 TABLET BY MOUTH EVERY DAY metoprolol succinate er 25 mg tb24 potassium chloride cr 10 meq tbcr once daily potassium chloride ER 10 mEq tablet,extended release Take 1 tablet every day by oral route. tramadol 50 mg tablet Take 1 tablet every 8 hours by oral route as needed for 10 days. tramadol hcl 50 mg tabs triamcinolone acetonide 40 mg/mL suspension for injection Take 40 mg by injection route. Voltaren 1 % topical gel APPLY 2 GRAM TO THE AFFECTED AREA(S) BY TOPICAL ROUTE 4 TIMES PER DAY Medications Administered None recorded. Vitals Height Weight BMI Blood Pressure 5 ft 11 in Lab Results None recorded. 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 History of Present Illness Note:Visit with pt's , Palma Herzog. She notes that pt's home health care ended two weeks ago. Pt is weak at home & unable to walk. She would like him to go to inpatient rehab PT facility, [facility] in [facility]. Discussed with medical research scientist, Dr Baker on 01/10/19.<div> notes that he's been denied inpt rehab admission three times with current insurance, [employer]. Pt's is planning to switch to [employer] to go into effect on 02/04/19. Would like to continue home health with [facility] until new insurance is effective & try again to get him admitted to inpt rehab hospital.</div><div> Needs medication for potassium & bedside commode.</div><div>
</div><div> Previously:</div><div>Last visit 10/11/18 for TCM. Pt was seen in office 09/20/18. Unfortunately, fell that day at lunch in restaurant when left knee buckled under him. Fell on left hip & had terrible pain. Went to [facility] the next day & was found to have left hip fracture. Was moved by ambulance to [facility] & had surgery 09/22/18 with three screws to fix ball of femur. Had left ORIF to repair subcapital femoral fracture. Was in [facility] from 09/21 to 10/05/18. Received physical therapy in hospital & amp; is getting [facility] for RN, PT, & OT evaluation so far. Dr Calhoun, ortho did repair per pt. Dr Paul Garcia was ortho who saw pt at [place] after fall & back injury. No follow-up with ortho scheduled.<div>
</div>< div>Did not make it to urology, Dr Parks on 09/21/18 for elevated PSA & scrotal swelling. Will need to reschedule.</div><div>Has not been back to Dr Silverman, cardiology. With normal bp, has been holding medication, both beta- basilio & ACEi.. Has LVEF 35-40% per Dr. Silverman.</div><div>Was working with derrick boat lever operator to get Medicaid appealed. Same derrick boat lever operator who helped with disability. Sadly, derrick boat lever operator a week ago.</div><div>
</div><div>Continues to have rash on chest & back that has been present about three months. Not improved with Medrol or topical steroid cream.</div><div>
</div><div><div>Previously:</div> <div><span style="font-size: 14px;">Pt saw senior piping designer, Dr Silverman, about mid- June 2018 & was hospitalized for five days for CHF exacerbation. Was hospitalized from about June 16-</span><span style="font-size: 14px;">. Was transferred from [facility] to [facility] for sandeep rly three weeks from 06/21/18 to Wednesday07/16/18.</span></div><div><div><div>< div>
</div><div>PMHX<span style="font-size: 14px;">:</span>
</div></div>< div>CAD - CAD with CABGx3 in February 22, 2017. No hx of [place]. Hx of CHF with LVEF 35-40%.</div><div>Hyperlipidemia - on atorvastatin 20mg qhs</div><div>COPD/Black lung - Worked in [employer] in [place] for 10yrs. Never smoked. Pt saw rn family, Dr. David Villatoro, on 04/25/18. Consult note reviewed.</div><div>Htn - on enalapril 10mg qd, lasix 40mg qd prn, lopressor 50mg bid</div><div>GERD - on famotidine, OTC antacid, Gas-X</div><div>Urinary incontinence -on oxybutynin.</div><div> Chronic low back & both hip pain - using Rx Voltaren gel. Using tramadol.
</div></div></div></div><div>Right shoulder pain - MRI of right shoulder showing severe rotator cuff tear in March 2018.</div></div> Review of Systems None recorded. Physical Exam None recorded.
--- OUTSIDE RECORDS SUMMARY | 2019-02-22 11:40 | XMS REPORT | Encounter Summary ---
Author Organization Unknown Address [address] [place] [address] Phone [phone] Care Team Providers Care Health And Safety Trainer Name Role Phone Dr. Shea Ochoa 3 [phone] Dmitry Silverman MD 2 [phone] Zev Ricks MD 109 [phone] Zev Kolb MD 130 [phone] Reason for Visit hospital follow up - [facility]) Instructions 1. Hospital patient generic DME transitional care management referral 2. Closed subcapital fracture of left femur hydrocodone 7.5 mg-acetaminophen 325 mg tablet 3. Pruritic rash dexamethasone 4 mg/mL injection solution triamcinolone acetonide 40 mg/mL suspension for injection 4. Raised prostate specific antigen 5. History of coronary artery bypass grafting 6. Rotator cuff syndrome 7. Congestive heart failure Discussion Note: None recorded. Patient educational handouts: No information available. Plan of Care Patient Instructions Please follow up with your doctor in two weeks. Follow up with any specialists that we discussed during your visit today. If you need help getting your medications filled, our [facility] can sync medication refills, deliver within a 10 mile radius, or [facility] overnight at no additional cost. Please watch for warning symptoms that may occur: *fever *redness/oozing at surgical site *shortness of breath *uncontrolled pain *unexpected weight gain/loss *high or low blood pressure *chest pain *confusion *any other health concerns Call us at if you experience these symptoms. In addition to these services our office offers social service director services, home health options and chronic conditions management. Please reach out to us with your particular needs. Evening and Wednesday clinic hours are available if you have problems. If you have problems after hours, you can reach the [facility] physician director of pediatric rehabilitation at . Reminders Provider Appointments Est Patient 10/25/2018 3:45PM Shea Ochoa MD Lab None recorded. Referral Transitional Care Management Referral 10/11/2018 Care Management Procedures None recorded. Surgeries None recorded. Imaging [...] mg tabs Flonase 50 mcg/actuation nasal spray,suspension [place] 1 spray every day by intranasal route [...] ROUTE 4 TIMES PER DAY Medications Administered Name Date dexamethasone 4 mg/mL injection solution Take 4 mg by injection route for 1 day. 2528-72-99O23:50:00 triamcinolone acetonide 40 mg/mL suspension for injection Take 40 mg by injection route. 5462-50-56Z54:51:00 Vitals Height Blood Pressure 5 ft 11 in 140/76 mm[Hg] Lab Results None recorded. 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 09/20/2018 Pruritic Rash; Edema of Lower Extremity; Raised Prostate Specific Antigen; Rotator Cuff Syndrome; Mixed Hyperlipidemia; Coronary Atherosclerosis; Male Urinary Stress Incontinence; Congestive Heart Failure Shea Ochoa MD: [address] [place] [address], Ph. History of Present Illness TCM Provider Visit Reported By: Patient Note:73yo male presents with for TCM. Pt was seen in office 09/20/18. Unfortunately, fell that day at lunch in restaurant when left knee buckled under him. Fell on left hip & had terrible pain. Went to [facility] the next day & was found to have left hip fracture. Was moved by ambulance to [facility] & had surgery 09/22/18 with three screws to fix ball of femur. Had left ORIF to repair subcapital femoral fracture. Was in [facility] from 09/21 to 10/05/18. Received physical therapy in hospital & is getting [facility] for RN, PT, & OT evaluation so far. Dr Calhoun, ortho did repair per pt. Dr Paul Garcia was ortho who saw pt at [place] after fall & back injury. No follow-up with ortho scheduled.<div>< br></div><div>Did not make it to urology, Dr Parks on 09/21/18 for elevated PSA & scrotal swelling. Will need to reschedule.</div><div>Has not been back to Dr Silverman, cardiology. With normal bp, has been holding medication, both beta- basilio & ACEi.. Has LVEF 35-40% per Dr. Silverman.</div><div>Was working with fire behavior analyst to get Medicaid appealed. Same fire behavior analyst who helped with disability. Sadly, fire behavior analyst a week ago.</div><div>
</div><div>Continues to have rash on chest & back that has been present about three months. Not improved with Medrol or topical steroid cream.</div><div>
</div><div><div>Previously:</div> <div><span style="font-size: 14px;">Pt saw site auditor, Dr Silverman, about mid- June 2018 & was hospitalized for five days for CHF exacerbation. Was hospitalized from about June 16-</span><span style="font-size: 14px;">. Was transferred from [facility] to [facility] for sandeep rly three weeks from 06/21/18 to Wednesday07/16/18.</span></div><div><div><div>< div>
</div><div>PMHX<span style="font-size: 14px;">:</span>
</div></div>< div>CAD - CAD with CABGx3 in February 22, 2017. No hx of [place]. Hx of CHF with LVEF 35-40%.</div><div>Hyperlipidemia - on atorvastatin 20mg qhs</div><div>COPD/Black lung - Worked in [employer] in [place] for 10yrs. Never smoked. Pt saw pul career development associate, Dr. David Villatoro, on 04/25/18. Consult note reviewed.</div><div>Htn - on enalapril 10mg qd, lasix 40mg qd prn, lopressor 50mg bid</div><div>GERD - on famotidine, OTC antacid, Gas-X</div><div>Urinary incontinence -on oxybutynin.< /div><div>Chronic low back & both hip pain - using Rx Voltaren gel. Using tramadol.
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 COPD Gastrointestinal: Gastrointestinal: no abdominal pain Genitourinary: Genitourinary: difficulty urinating, incomplete emptying Musculoskeletal: Musculoskeletal: muscle aches, arthralgias/joint pain, back pain, swelling in the extremities Integumentary: Skin: rash, itching, dry skin, growths/lesions Neurologic: Neurologic: no loss of consciousness, no headaches, weakness, dizziness Psychiatric: Psych: no depression, feeling safe in a relationship, no alcohol abuse, no anxiety, no suicidal thoughts Physical Exam General Adult Exam (male) Reported By: Patient Health Informatics Specialist: Health Informatics Specialist: present; pt quiet, most of hx from [...] Bowel Sounds: normal. Inspection and Palpation: soft Musculoskeletal:: Joints, Bones, and Muscles: limited ROM, tenderness. Extremities: edema Neurologic: Gait and Station: ; in wheelchair. Reflexes: diminished Skin: Inspection and palpation: rash, lesion; diffuse maculopapular rash with excoriations from scratching on back & chest.sutures left hip (see photo below)
[2019-02-22] MEDS ORDERED: ASPIRIN 81 MG CHEW TAB PO ONE (11:45)
--- NOTE | 2019-02-22 11:45 | NUR ---
Pt placed on a waffle. Pt noted to have a stage 1 to sacrum and multiple scabs to extremities.
[2019-02-22] MEDS ORDERED: ZYVOX600 MG PO (12:42)
[2019-02-22] MEDS ORDERED: KLOR-CON 1010 MEQ PO (12:42)
[2019-02-22] MEDS ORDERED: ESIDRIX25 MG PO (12:42)
[2019-02-22] MEDS ORDERED: BUMETANIDE1 MG PO (12:42)
[2019-02-22] MEDS ORDERED: LOPRESSOR25 MG PO (12:42)
--- NOTE | 2019-02-22 13:11 | Diagnostic Imaging Report ---
Examination: Single AP view of the chest. COMPARISON: None. INDICATION: Cardiac issues DISCUSSION: Lines/tubes: Sternotomy wires. Lungs: Enlargement of the central vasculature with mild edema. Pleura: Probable small left effusion. Heart and mediastinum: Cardiomegaly. Bones and soft tissues: No acute bony abnormalities. IMPRESSION: 1. Cardiomegaly with mild edema. Signed by: Dr. Noe Dooley M.D. on 02/22/2019 1:08 PM
[2019-02-22 13:12] LABS: BASOPHILS # (AUTO) 0.1 (0.0-0.1); BASOPHILS % 0.5 % (0.0-1.0); EOSINOPHILS # (AUTO) 0.5 (0.0-0.4); EOSINOPHILS % 4.9 % (0.0-6.0); HEMATOCRIT 41.4 % (38.2-49.6); HEMOGLOBIN 13.6 g/dL (14.0-18.0); LYMPHOCYTES # (AUTO) 1.7 (1.0-3.2); LYMPHOCYTES % 17.3 % (18.0-39.1); MEAN CORPUSCULAR HEMOGLOBIN 29.5 pg (28-32); MEAN CORPUSCULAR HGB CONC 32.9 g/dL (31-35); MEAN CORPUSCULAR VOLUME 89.8 fL (81-99); MONOCYTES # (AUTO) 1.2 (0.2-0.8); MONOCYTES % 12.5 % (4.4-11.3); NEUTROPHILS # (AUTO) 6.4 (2.1-6.9); NEUTROPHILS % 64.5 % (38.7-80.0); PLATELET COUNT 280 x10e3/uL (140-360); RED BLOOD COUNT 4.61 x10e6/uL (4.3-5.7); RED CELL DISTRIBUTION WIDTH 14.6 % (11.7-14.4)
[2019-02-22 13:16] LABS: BILIRUBIN,URINE NEGATIVE (NEGATIVE); CLARITY,URINE CLEAR (CLEAR); COLOR,URINE YELLOW (YELLOW); KETONES,URINE NEGATIVE (NEGATIVE); LEUKOCYTE ESTERASE ,URINE NEGATIVE (NEGATIVE); NITRITE,URINE NEGATIVE (NEGATIVE); PROTEIN,URINE DIPSTICK NEGATIVE (NEGATIVE); URINE UROBILINOGEN 0.2 mg/dL (0.2 - 1)
[2019-02-22 13:24] LABS: INR 0.98; PARTIAL THROMBOPLASTIN TIME 34.8 seconds (23.8-35.5); PROTHROMBIN TIME 13.5 seconds (11.9-14.5)
[2019-02-22 13:31] LABS: BACTERIA,URINE FEW /HPF; EPITHELIAL CELLS,URINE RARE /LPF
[2019-02-22 13:38] LABS: ALANINE AMINOTRANSFERASE 10 IU/L (0-55); ALBUMIN 3.9 g/dL (3.5-5.0); ALBUMIN/GLOBULIN RATIO 1.4 (0.8-2.0); ALKALINE PHOSPHATASE 102 IU/L (40-150); ANION GAP 13.8 mmol/L (8-16); BLOOD UREA NITROGEN 11 mg/dL (7-26); BUN/CREATININE RATIO 11 (6-25); CALCIUM 10.1 mg/dL (8.4-10.2); CARBON DIOXIDE 27 mmol/L (22-29); CHLORIDE 104 mmol/L (98-107); CREATINE KINASE 25 IU/L (30-200); CREATININE, SERUM 1.02 mg/dL (0.72-1.25); EST GLOMERULAR FILTRATION RATE > 60 ML/MIN (60-); GLUCOSE 115 mg/dL (74-118); MAGNESIUM 2.2 MG/DL (1.3-2.1); POTASSIUM 3.8 mmol/L (3.5-5.1); SODIUM 141 mmol/L (136-145)
[2019-02-22 13:57] LABS: THYROID STIMULATING HORMONE 3.108 uIU/mL (0.350-4.940)
[2019-02-22] MEDS ORDERED: FUROSEMIDE INJ 10 MG/ML 4 ML VIAL IV ONE (14:00)
--- NOTE | 2019-02-22 15:55 | NUR ---
condom cath placed on patient.
[2019-02-22] MEDS ORDERED: SODIUM CHLORIDE FLUSH 10 ML SYR INJ PRN (17:30)
--- NOTE | 2019-02-22 20:10 | NUR ---
Pt received from ER. Pt A&O and in no apparent distress. Pt on O2 and tele. Pt at bedside. All safety measures ensured, bed alarm on, and pt call perez near.
[2019-02-22 20:38] VITALS: BP 150/93
[2019-02-22 21:47] VITALS: BP 150/93
[2019-02-23] VITALS: BP 111/82
[2019-02-23 04:00] VITALS: BP 131/82
[2019-02-23 05:51] LABS: BASOPHILS # (AUTO) 0.1 (0.0-0.1); BASOPHILS % 0.6 % (0.0-1.0); EOSINOPHILS # (AUTO) 0.4 (0.0-0.4); EOSINOPHILS % 4.9 % (0.0-6.0); HEMATOCRIT 37.4 % (38.2-49.6); HEMOGLOBIN 12.2 g/dL (14.0-18.0); LYMPHOCYTES # (AUTO) 1.3 (1.0-3.2); MEAN CORPUSCULAR HEMOGLOBIN 29.3 pg (28-32); MEAN CORPUSCULAR HGB CONC 32.6 g/dL (31-35); MEAN CORPUSCULAR VOLUME 89.9 fL (81-99); MONOCYTES % 11.7 % (4.4-11.3); NEUTROPHILS # (AUTO) 5.6 (2.1-6.9); NEUTROPHILS % 66.4 % (38.7-80.0); PLATELET COUNT 258 x10e3/uL (140-360); RED BLOOD COUNT 4.16 x10e6/uL (4.3-5.7); RED CELL DISTRIBUTION WIDTH 14.6 % (11.7-14.4)
[2019-02-23 06:32] LABS: CREATINE KINASE MB 1.1 ng/mL (0-5.0)
--- NOTE | 2019-02-23 06:58 | Diagnostic Imaging Report ---
EXAMINATION: CHEST SINGLE (PORTABLE) INDICATION: ^CHF ^[id number] ^0530 ^Y COMPARISON: 02/22/2019 FINDINGS: AP view TUBES and LINES: None. LUNGS and pleura: Unchanged vascular congestion, mild interstitial edema, and suspected small bilateral pleural effusions. PLEURA: No pleural effusion or pneumothorax. HEART AND MEDIASTINUM: The cardiomediastinal silhouette is enlarged. Again seen median sternotomy wires. BONES AND SOFT TISSUES: No acute osseous lesion. Soft tissues are unremarkable. UPPER ABDOMEN: No free air under the diaphragm. IMPRESSION: No significant interval change from prior exam. Signed by: Dr. Allen Hanson MD on 02/23/2019 6:55 AM
--- NOTE | 2019-02-23 06:59 | NUR ---
H&P cc: SOB HPI: 73yoM, PCP?? developed mild sob. Unclear as to whether pt has been taking medications at home. Close management by . no cp. no dizziness. PMH: 1. Systolic congestive heart failure. 2. Severe systolic congestive heart failure with ejection fraction 20%. The patient refuses AICD placement with the understanding that he could develop sudden . 3. Bilateral leg cellulitis. 4. Coronary artery disease. 5. Valvular dysfunction. 6. Constipation. 7. Acute kidney injury, which is resolving. PShx: CABG, hernia, Allergies; see emr Fh/SH; ; no illicits Meds; see MAR ROS: unreliable v/s; revd PE: tired appearing anicteric ns1s2 mod bs; moderate air movement; no respiratory distress soft nt nd no e/t awake; hearing deficits skin dry flat affect labs/med; revd A/P: AECHF- systolic LVEF 20% CAD with hx CABG Pulmonary edema HTN Dementia Hyperbilirubineia Early dementia Physical deconditioning PLAN diurese educate on avoidance of salt and excess fluids Resume home meds PT consult; Will need home PT/HH vs SNF eval. Paul Garcia MD, PhD.
[2019-02-23] MEDS ORDERED: NITROGLYCERIN 0.4 MG SUBL SL SCH (07:00)
[2019-02-23] MEDS ORDERED: TRAMADOL HCL 50 MG TAB PO PRN (07:00)
--- NOTE | 2019-02-23 07:10 | NUR ---
Walking rounds and report received. Patient is alert to self in NAD. Tele#7, SR with PVCs. He appears comfortable at this time. dr. Garcia at bedside making rounds. Bed in lowest position, locked and call perez within reach. will continue to monitor.
--- NOTE | 2019-02-23 07:12 | NUR ---
Beside report walking round complete with day shift RN.
[2019-02-23] MEDS ORDERED: NITROGLYCERIN 0.4 MG SUBL SL PRN (07:15)
[2019-02-23 07:24] LABS: ANION GAP 15.5 mmol/L (8-16); BLOOD UREA NITROGEN 11 mg/dL (7-26); BUN/CREATININE RATIO 11 (6-25); CALCIUM 9.3 mg/dL (8.4-10.2); CARBON DIOXIDE 25 mmol/L (22-29); CHLORIDE 102 mmol/L (98-107); CREATININE, SERUM 1.01 mg/dL (0.72-1.25); EST GLOMERULAR FILTRATION RATE > 60 ML/MIN (60-); GLUCOSE 130 mg/dL (74-118); POTASSIUM 3.5 mmol/L (3.5-5.1); SODIUM 139 mmol/L (136-145)
[2019-02-23 08:00] VITALS: BP 131/82
[2019-02-23] MEDS ORDERED: HYDROCHLOROTHIAZIDE 25 MG TAB PO SCH (09:00)
[2019-02-23] MEDS ORDERED: ASPIRIN 81 MG CHEW TAB PO SCH (09:00)
[2019-02-23] MEDS ORDERED: NON-FORMULARY MEDICATION (Potassium Chloride (Klor-Con 10) 10 MEQ) PO SCH (09:00)
[2019-02-23] MEDS ORDERED: POTASSIUM CHLORIDE 10MEQ EA PO SCH (09:00)
[2019-02-23] MEDS ORDERED: METOPROLOL TARTRATE 25 MG TAB PO SCH (09:00)
[2019-02-23] MEDS ORDERED: FUROSEMIDE INJ 10 MG/ML 4 ML VIAL IV SCH (09:00)
[2019-02-23] MEDS ORDERED: CLOPIDOGREL BISULFATE 75 MG TAB PO SCH (09:00)
[2019-02-23 09:18] VITALS: BP 116/78
--- NOTE | 2019-02-23 10:15 | NUR ---
WOUND CARE CONSULTATION: THIS IS A 73 YEAR OLD MALE PATIENT ADMITTED TO [facility] FOR ACUTE EXACERBATION OF SYSTOLIC ENVIRONMENT. PATIENT ALSO SUFFERED A RECENT FALL AT HOME. PATIENT HAS A HISTORY OF CHF, CAD, AND DEBILITATION. HEAD TO TOE SKIN ASSESSMENT PERFORMED. PATIENT HAS A STAGE 1 PRESSURE ULCER TO THE SACRUM MEASURING [id number], SKIN IS INTACT WITH 100% NONBLANCHABLE REDNESS. PATIENT HAS A RIGHT MONZON ABRASION SUSTAINED FROM HIS FALL AT HOME MEASURING 4X0.5X0.1CM, 100% STABLE ESCHAR COVERING WOUND BED. PATIENT HAS A RIGHT KNEE ABRASION SUSTAINED FRO HIS RECENT FALL AT HOME MEASURING 3.4X1.3X0.1CM, 100% STABLE ESCHAR NOTED TO WOUND BED. 1+ PITTING EDEMA NOTED TO LEFT LOWER EXTREMITY. WEAK PALPABLE PULSES NOTED TO RIGHT AND LEFT DP AND PT PULSES. LABS: WBC8.37 ALB3.9 [id number] URINE CULTURE = PENDING RECOMMENDATION: -CONTINUE ALTERNATING PRESSURE RELIEF MATTRESS. -APPLY BILATERAL HEEL PROTECTORS WITH PILLOW SUSPENSION. -NURSING TO CLEAN STAGE 1 PRESSURE ULCER TO SACRUM WITH NORMAL SALINE, PAT DRY, APPLY VENELEX AND THEN ALLEVYN FOAM DRESSING; CHANGE DAILY AND PRN. -NURSING TO CLEAN RIGHT MONZON ABRASION AND RIGHT KNEE ABRASION WITH NORMAL SALINE, PAT DRY, APPLY BACTROBAN AND LEAVE OPEN TO AIR; CHANGE DAILY AND PRN. -TURN PATIENT EVERY 2 HOURS AND PRN. THANK YOU FOR THIS WOUND CARE CONSULT. Addendum: 02/23/19 at 1032 by Scarlett Meyer RN Amended: Links added.
--- NOTE | 2019-02-23 10:22 | NUR ---
D/C summary Principal dx: AECHF- systolic LVEF 20% Pulmonary edema- mild Secondary Dx: CAD with hx CABG HTN Dementia Early dementia Physical deconditioning PLAN diurese educate on avoidance of salt and excess fluids Resume home meds PT consult; Will need home PT/HH vs SNF eval. d/c home with PT/HH, since refuses ALL SNF care. stable d/c >35mins f/u PCP 1 week and cardiology 1 week Paul Garcia MD, PhD.
--- NOTE | 2019-02-23 10:51 | NUR ---
PT DEFERS TO , STATES ABSOLUTELY NO RESIDENTIAL, SHE STATES HE ALREADY HAS HOME HEALTH WITH [facility] AND THEY COME 3 TIMES A WEEK. STATES IS CHANGING INSURANCE ON THE March AND WILL BE ADMITTING INPATIENT AT [facility], HER PREFERENCE IS TO RETURN HOME AND CONTINUE WITH HOME HEALTH, CALLED [facility] AND SPOKE WITH DIRECTOR JANET TIRADO AND LET THEM KNOW ABOUT THE CONVERSATIONS AND EXPRESSED CONCERNS FROM THEIR NURSE. SHE WILL FOLLOW UP WITH APS IF NEEDED IN COMMUNITY AND LET ME KNOW THE PROGRESS OF THE PT.
[2019-02-23 11:48] VITALS: BP 129/18
--- NOTE | 2019-02-23 12:40 | NUR ---
here to pick patient up. Verbal and written instructions provided and verbalized understanding. IV dc'd, cath itact, and small dressing applied. Patient wants to finish eating lunch priior to discharge and will call when ready.
--- NOTE | 2019-02-23 13:15 | NUR ---
Patient discharged home with in stable condition, with all belongings and written instructions. Patient wheeled to private vehicle.
[2019-02-24] MEDS ORDERED: MUPIROCIN 2% OINT 22 GM TUBE TOP SCH (09:00)
[2019-02-24] MEDS ORDERED: BALSAM PERU/CASTOR OIL 5 GM OINT...G. TP SCH (09:00)
== END 2019-02-23 13:10 | disposition home or self-care (01) ==
LOC: ER 11:36 → ERHOLD 17:17 → IMCU 20:10
PROVIDERS: ADMIT Internal Medicine; ATTEND Internal Medicine
DX: I11.0 Hypertensive heart disease with heart failure (principal); I25.10 Atherosclerotic heart disease of native coronary artery without angina pectoris; R55 Syncope and collapse; Z95.1 Presence of aortocoronary bypass graft; I50.23 Acute on chronic systolic (congestive) heart failure; F03.90 Unspecified dementia, unspecified severity, without behavioral disturbance, psychotic disturbance, mood disturbance, and anxiety; E80.6 Other disorders of bilirubin metabolism; R53.81 Other malaise
CPT/HCPCS: 36415 ×2; 71045 ×2; 80048; 80053; 81001; 82550 ×2; 82553 ×2; 82948; 83735; 83880; 84443; 84484 ×2; 85025 ×2; 85610; 85730; 87086; 93005; 94660; 97139; 97162; 97530; 99284; G0378 ×2; J1940 ×2; J7030